=== PATIENT | female | born 1955 | race Caucasian/White ===

== ENCOUNTER 2020-07-31 15:44 | Outpatient (REF) | payer OTHER, SELFPAY | END 2020-07-31 15:45 | disposition home or self-care (01) | LOC: HO.LAB 15:44 | PROVIDERS: PCP Internal Medicine; Visit Provider Internal Medicine | DX: Z20.828 Contact with and (suspected) exposure to other viral communicable diseases (principal) | CPT/HCPCS: C9803; U0003 ==

== ENCOUNTER 2020-08-19 12:54 | Outpatient (REF) | payer OTHER, SELFPAY | END 2020-08-19 12:55 | disposition home or self-care (01) | LOC: HO.LAB 12:54 | PROVIDERS: PCP Internal Medicine; Visit Provider Internal Medicine | DX: Z20.822 Contact with and (suspected) exposure to COVID-19 (principal) | CPT/HCPCS: 36415; C9803; U0003 ==

== ENCOUNTER 2020-09-16 16:02 | Outpatient (REF) | payer OTHER, SELFPAY | END 2020-09-16 16:03 | disposition home or self-care (01) | LOC: HO.LAB 16:02 | PROVIDERS: Visit Provider Internal Medicine | DX: Z20.822 Contact with and (suspected) exposure to COVID-19 (principal) | CPT/HCPCS: 36415; C9803; U0003; U0005 ==

== ENCOUNTER 2022-03-18 06:25 | Emergency (ER) | payer OTHER, SELFPAY ==
--- NOTE | ~2022-03-18 | US_ITS ---
EXAMINATION: LEFT LOWER EXTREMITY DEEP VENOUS ULTRASOUND CLINICAL INFORMATION: Left lower extremity pain and swelling COMPARISON: None. TECHNIQUE: Duplex Doppler imaging with compression maneuvers were performed of the left lower extremity deep venous system. FINDINGS: The visualized common femoral, femoral and popliteal veins demonstrate normal compressibility and color flow without evidence of venous thrombosis. Visualized portions of the calf veins demonstrate normal color fill-in suggesting patency. There is no evidence of a Ramon's cyst. US/US venous duplex LE LT IMPRESSION: No evidence of deep venous thrombosis involving the left lower extremity.
[2022-03-18 07:17] VITALS: BP 150/95; PULSE 89; RESP 18; TEMP 36.7; O2SAT 96; BMI 27.6
--- NOTE | 2022-03-18 09:36 | ED_ITS ---
HPI - Extremity Injury (Lower) General Chief Complaint: Extremity Injury, Lower Stated Complaint: left foot pain Time Seen by Provider: 03/18/22 08:55 Source: patient Mode of arrival: ambulatory History of Present Illness HPI Narrative: 66-year-old female with no significant past medical history presenting to the ED complaining of left calf pain and swelling s/p a lot of walking last week. Denies known injury, trauma or fall. Reports history of varicose veins s/p . Denies fever, chills, SOB, CP, cough, numbness, tingling, weakness complaint: leg injury Onset (ago): day(s) Related Data Allergies Allergy/AdvReac Type Severity Reaction Status Date / Time No Known Allergies Allergy Verified 03/18/22 07:16 [No Known Allergies*] Review of Systems Review of Systems: Constitutional: No Fever, No Chills, No Fatigue, No Malaise ENT/Mouth: No Hearing loss, No Ear Pain, No Nasal Congestion, No Rhinorrhea, No Swallowing Difficulty Eyes: No Eye Pain, No Swelling, No Redness, No Vision Changes Cardiovascular: No Chest Pain, No SOB, No Edema, No Palpitations Respiratory: No Cough, No Sputum, No Dyspnea Gastrointestinal: No Nausea, No Vomiting, No Diarrhea, No Constipation, No Abdominal pain Genitourinary: No irregular bleeding, No Dysuria, No Urinary Frequency, No Hematuria, No Urinary Incontinence/retention, No Flank Pain Musculoskeletal: + joint pain, No Myalgias, + L calf swelling Skin: No Skin Lesions, No rash Neuro: No Weakness, No Numbness, No Paresthesias, No Dizziness, No Headache Yes all other systems are reviewed and are negative Constitutional: Constitutional: Reports as per [facility] Past Medical History Attestation statement: The following information was validated with the patient. Social History Social History Advance Directives: No Advance Directives Information Provided: Yes Physical Exam Vital Signs: Vital Signs: Last Vital Signs Temp 98.1 F 03/18/22 07:17 Pulse 89 03/18/22 07:17 Resp 18 03/18/22 07:17 BP 150/95 H 03/18/22 07:17 Pulse Ox 96 03/18/22 07:17 O2 Del Method 03/18/22 07:17 BMI result Body Mass Index 27.6 Const: General: cooperative, healthy appearing and no acute distress Orientation/consciousness: patient oriented x3 Limitations: no limitations HEENT: Head: Yes normal to inspection and Yes atraumatic Ears: hearing grossly normal bilaterally General nose exam: Normal external nose present Face and sinus: Yes normal facial exam Eyes: General: appearance normal, both eyes and all related structures EOM: EOMs intact bilaterally Neck: Neck: Yes normal visual inspection and Yes no meningeal signs Resp: Effort & Inspection: normal respiratory effort and no respiratory distress Auscultation: clear to auscultation bilaterally Cardio: Rate: regular rate Heart sounds: S1 normal heart sound present and S2 normal heart sound present Peripheral pulses: Peripheral pulses 2+ throughout GI: Inspection: Yes normal to inspection Palpation (GI): Soft to palpation, nontender, no guarding and not rigid : General: Yes no CVA tenderness Back/Spine/Pelvis: Back: no CVA tenderness Skin: Rashes: no rashes Wounds: no wounds Neuro: General: patient oriented x3, tone normal and no meningeal signs Gait exam (Neuro): Normal gait present Extrem: Other: Left calf with mild swelling and noted varicose veins. No erythema/streaking, no crepitus. Mildly tender to palpation. Neurovascular intact distally. Full range of motion intact Course Course Course Narrative: -- 10:40 US venous duplex LE LT IMPRESSION: No evidence of deep venous thrombosis involving the left lower extremity. Results discussed with patient including worrisome signs and symptoms and strict return precautions, and when to return to the emergency department. They verbalized understanding and feel safe for discharge at this time. MDM - Extremity Injury (Lower) MDM Narrative Medical decision making narrative: 66-year-old female with no significant past medical history presenting to the ED complaining of left calf pain and swelling s/p a lot of walking last week. On exam vital signs stable, NAD/nontoxic-appearing, physical exam as above with noted left calf swelling and varicose veins without evidence of cellulitis or infection. Concern for DVT versus varicose veins. Low suspicion for PE/CHF Plan: Venous duplex ultrasound Medical Records Attestation: I reviewed the patient's medical records. Lab Data Attestation: I reviewed the patient's lab results. Discharge Plan Discharge Clinical Impression: Varicose veins of left lower extremity Patient Disposition: Home, Self-Care Instructions: Venous Insufficiency (DC) Additional Instructions: Your ultrasound was negative for a blood clot. Your pain is likely from varicose veins. Wear compression stockings at home. Take Tylenol Motrin as needed. Elevate her legs Follow-up with her doctor. If symptoms persist or worsen return to the emergency department Tu ultrasonido bonilla negativo para un co?gulo de deborah. Es probable que jackson dolor se deba a las venas varicosas. Use medias de compresi?n en casa. [place] Tylenol Motrin seg?n sea necesario. [place] jose m piernas Seguimiento con jackson m?dico. Si los s?ntomas persisten o empeoran, regrese al servicio de urgencias. Referrals: Stone Wiley III, MD [Primary Care Provider] - Interventions: ED Discharge Assessment Last Done: 03/18/22 11:12 Discharge Date/Time: 03/18/22 11:15 Print Language: Martiniquais
== END 2022-03-18 11:15 | disposition home or self-care (01) ==
PROVIDERS: Emergency Provider Internal Medicine; PCP Internal Medicine
DX: I83.812 Varicose veins of left lower extremity with pain (principal); M79.662 Pain in left lower leg
CPT/HCPCS: 93971; 99282; 99284

== ENCOUNTER 2024-12-28 05:30 | Emergency (ER) | payer OTHER, SELFPAY ==
--- NOTE | ~2024-12-28 | XR_ITS ---
CLINICAL HISTORY: fever, cough 1 view chest x-ray Comparison: None Findings: Minor elevation of the right hemidiaphragm. Lungs are well inflated. Cardiac silhouette is within normal limits. Mild bilateral perihilar bronchial wall thickening. No focal areas of consolidation. No pleural effusion. Curvilinear calcification adjacent to the left greater tuberosity. IMPRESSION: 1. Perihilar bronchitis. 2. Calcific tendinitis of the distal left rotator cuff. This document has been electronically signed by: Clemetne Valdes MD on 12/28/2024 07:46:58
[2024-12-28 05:34] VITALS: BP 114/80; PULSE 121; RESP 18; TEMP 36.7; O2SAT 98; BMI 21.6
--- NOTE | 2024-12-28 06:16 | ED_ITS ---
HPI - URI/Sore Throat General Chief Complaint: Upper Respiratory Symptoms Stated Complaint: Fever, Ear Pain Time Seen by Provider: 12/28/24 06:08 Source: patient and family Mode of arrival: ambulatory Limitations: no limitations History of Present Illness ED Provider: Dr. Nury Casey HPI Narrative: Patient comes to the emergency room complaining of fever, cough, left ear pain. Patient states that she was exposed to influenza positive people. According to the patient's family, a proximally 4 hours ago she took a some Tylenol. According to the patient's daughter, the patient was crying earlier tonight due to left ear pain. Patient denies any chest pain or shortness of breath. Yesterday, patient had 2 episodes of vomiting, today none. Related Data Previous Rx's ?Medication ?Instructions ?Recorded amoxicillin 500 mg-potassium 1 tab PO TID 10 days #29 tabs 12/28/24 clavulanate 125 mg tablet (Augmentin) ketorolac 10 mg tablet 10 mg PO Q8H PRN pain #6 tabs 12/28/24 Allergies Allergy/AdvReac Type Severity Reaction Status Date / Time No Known Allergies Allergy Verified 12/28/24 05:37 [No Known Allergies*] Review of Systems Review of Systems: Constitutional : No Weight loss, No Fever, No Chills, No Night Sweats, No Fatigue, No Malaise ENT/Mouth : No Hearing loss, complaining of left-sided Ear Pain, complaining of Nasal Congestion, No Sinus Pain, No Hoarseness, No sore throat, No Rhinorrhea, No Swallowing Difficulty Eyes: No Eye Pain, No Swelling, No Redness, No Foreign Body, No Discharge, No Vision Changes Cardiovascular : No Chest Pain, No SOB, No Dyspnea on Exertion, No Orthopnea, No Edema, No Palpitations Respiratory : Complaining of productive cough No Wheezing, No Smoke Exposure, No Dyspnea Gastrointestinal : Complaining of nausea and vomiting for couple of days ago No Diarrhea, No Constipation, No abdominal Pain, No Hematochezia, No Melena Genitourinary : no irregular bleeding, No Dysuria, No Urinary Frequency, No Hematuria, No Urinary Incontinence, No Urgency, No Flank Pain, No Urinary Flow Changes, No Hesitancy Musculoskeletal : No joint pain, No Myalgias, No Joint Swelling Skin : No Skin Lesions, No rash Neuro : No Weakness, No Numbness, No Paresthesias, No Loss of Consciousness, No Dizziness, No Headache Psych : No Anxiety/Panic, No Depression, No SI/HI/AH/VH, No Social Issues, Heme/Lymph: No Bruising, No Bleeding,No Lymphadenopathy Endocrine : No Polyuria, No Polydipsia, No Temperature Intolerance [facility] Social History Social History Smoked in Last 30 Days: No Use of substances other than those prescribed or required for medical reasons: No Advance Directives: No Advance Directives Information Provided: Yes Do you have a plan to hurt others: No Plan Physical Exam Vital Signs: Vital Signs: Last Vital Signs Temp 98.1 F 12/28/24 05:34 Pulse 121 H 12/28/24 05:34 Resp 18 12/28/24 05:34 BP 114/80 12/28/24 05:34 Pulse Ox 98 12/28/24 05:34 O2 Del Method Room Air 12/28/24 05:34 BMI result Body Mass Index 21.6 Const: Other: Appearance: Alert. Oriented X3. No acute distress. Eyes: Pupils equal, round and reactive to light. ENT: Pharynx normal. Patient's right tympanic membrane and ear canal within normal limits, left ear ear canal and tympanic membrane both erythematous, tympanic membrane is not ruptured. There is no mastoid bone tenderness to palpation in either side. Neck: Normal inspection. Neck supple. No lymph nodes noted. No crepitus CVS: Normal heart rate and rhythm. Pulses normal. Normal S1 and S2 Respiratory: No respiratory distress. Breath sounds normal. No Wheezing. No rales Abdomen: Soft and nontender. No rigidity. No distention. Skin: Skin warm and dry. Normal skin color. Normal skin turgor. Extremities: No lower extremity edema. No Lacerations. No Rash Neuro: Oriented X 3. No motor deficit. No sensory deficit. Moving all extremities. No slurred speech. CN 2 through 12 grossly intact Psych: calm, cooperative, normal affect Course Course Course Narrative: Patient's chest x-ray and serology reports pending. Patient is being given a dose of ketorolac IM and 1st dose of antibiotic Medications Administered Discontinued Medications Generic Name Dose Route Start Last Admin Trade Name Freq PRN Reason Stop Dose Admin Amoxicillin/Clavulanate Potassium 500 mg 12/28/24 06:16 12/28/24 06:28 Amoxicillin/Potassium Clav 500 Mg Tablet PO 12/28/24 06:17 500 mg ONCE ONE Administration Ketorolac Tromethamine 60 mg 12/28/24 06:16 12/28/24 06:28 Ketorolac Tromethamine 60 Mg/2 Ml Vial IM 12/28/24 06:17 60 mg ONCE ONE Administration Medical Decision Making Medical Decision Making [facility] Narrative: I discussed the physical exam with the patient and her family. Patient states that the ear pain is really bothering her. No mastoid bone tenderness. Mastoiditis is not suspected. Patient was given the 1st dose of IM ketorolac and Augmentin in the emergency room. Serology is negative for influenza COVID and RSV My interpretation of x-ray, negative pneumonia. Radiology report pending. Patient is receiving treatment for otitis media which will also cover for pn eumonia. Differential Diagnosis Differential Diagnoses: The differential diagnosis associated with the presentation includes (Otitis media, mastoiditis, URI, pneumonia) Lab Data [facility] Lab Attestation statement: I reviewed the patient's lab results. Labs: Lab Results 12/28/24 Range/Units 05:46 Influenza Type A (PCR) NEGATIVE (Negative) Influenza Type B (PCR) NEGATIVE (Negative) RSV RNA Qual (PCR) NEGATIVE (Negative) SARS-CoV-2 RNA (RT-PCR) NEGATIVE (Negative) Independent Interpretation I performed an independent interpretation of an: Plain X-Ray Discharge Plan Discharge Clinical Impression: Otitis media Patient Disposition: Home, Self-Care Instructions: Ear Infection (ED) Additional Instructions: Please follow-up with your primary care physician tomorrow. If you have any worsening or new symptoms, please return to the emergency room or call 911 Prescriptions: New amoxicillin-pot clavulanate [Augmentin] 500-125 mg tablet 1 tab PO TID 10 Days Qty: 29 0RF ketorolac 10 mg tablet 10 mg PO Q8H PRN (Reason: pain) Qty: 6 0RF Rx Instructions: Do not mix with ibuprofen or any other NSAIDs Print Language: Indian
[2024-12-28 06:27] LABS: Influenza A PCR NEGATIVE (Negative); Influenza B PCR NEGATIVE (Negative); Resp Syncy Virus RNA Qual PCR NEGATIVE (Negative); SARS COV2 PCR INHOUSE NEGATIVE (Negative)
[2024-12-28] MEDS: Amoxicillin/Potassium Clav 500 MG TABLET PO (06:28)
[2024-12-28] MEDS: Ketorolac Tromethamine 60 MG/2 ML VIAL IM (06:28)
[2024-12-28 07:00] VITALS: BP 141/81; PULSE 89; RESP 18; TEMP 36.9; O2SAT 97
[2024-12-28 07:11] VITALS: BP 141/81; PULSE 89; RESP 18; TEMP 36.9; O2SAT 97
== END 2024-12-28 07:12 | disposition home or self-care (01) ==
PROVIDERS: Emergency Provider Emergency Medicine
DX: H66.92 Otitis media, unspecified, left ear (principal); R05.9 Cough, unspecified; Z03.818 Encounter for observation for suspected exposure to other biological agents ruled out; E11.9 Type 2 diabetes mellitus without complications
CPT/HCPCS: 0241U; 71045; 96372; 99284; J1885

== ENCOUNTER → 2024-12-28 06:08 | Outpatient (BNV) | payer OTHER, SELFPAY | PROVIDERS: Emergency Provider Emergency Medicine; Visit Provider Radiology Diagnostic Radiology | DX: J20.9 Acute bronchitis, unspecified (principal); M75.32 Calcific tendinitis of left shoulder | CPT/HCPCS: 71045 ==

== ENCOUNTER → 2025-01-02 14:09 | Outpatient (BNV) | payer OTHER, SELFPAY | PROVIDERS: Emergency Provider Emergency Medicine; Visit Provider Student in an Organized Health Care Education/Training Program | DX: R47.81 Slurred speech (principal); R53.1 Weakness; R73.9 Hyperglycemia, unspecified | CPT/HCPCS: 99223; 99233 ==

== ENCOUNTER 2025-01-02 14:14 | Inpatient (IN) | payer OTHER, SELFPAY ==
--- NOTE | ~2025-01-02 | CT_ITS ---
EXAMINATION: CTA NECK WITH CONTRAST (STROKE) CTA BRAIN WITH CONTRAST (STROKE) CLINICAL INFORMATION: Slurred speech. Concerning acute stroke COMPARISON: Correlated to noncontrast CT brain same day. TECHNIQUE: CTA of the head and neck was performed in the axial plane from the mediastinum to the skull vertex using 70 mL Omnipaque 350 intravenous contrast. Additional reformatted multiplanar images including maximum intensity projection MIP images are generated on the CT workstation. No reported immediate complications This CT examination was performed using dose optimization techniques as appropriate, variously including the following: *Automated exposure control *Adjustment of mA and/or kV according to patient size (this includes techniques or standardized protocols for targeted exams where dose is matched to indication/reason for exam; i.e. extremities or head) *Use of iterative reconstruction technique DLP: 704 mGy centimeter. FINDINGS: The degree of stenosis determined by criteria similar to NASCET. Brain: Please refer to recent CT brain. Chest CTA: Calcified plaques in the aortic arch and descending thoracic aorta. Normal caliber and enhancement pattern without intimal flap. No IV contrast extravasation. Calcified plaque in the origin of the left subclavian artery and the right vertebral artery. Neck CTA: Right CCA: Normal patency. No focal stenosis. No intimal flap. Right ICA: Focal calcified plaque in the carotid bulbs and proximal ICA. Less than 70% stenosis. Tortuosity. Retropharyngeal trajectory. Left CCA: Normal patency. Tortuosity. No focal stenosis. No intimal flap. Left ICA: Calcified plaques representing less than 60% stenosis. No intimal flap. Tortuosity. V1/V2 segments: Normal patency. No intimal flap. No focal stenosis. Calcified plaques in the origin of the vertebral arteries and the subclavian arteries. Brain CTA: Anterior cerebral circulation: ICAs: Calcified plaques in the cavernous supraclinoid segments. No focal stenosis. No abrupt cut off. MCA's: Normal patency. No focal stenosis. No abrupt cut off. Bifurcation/trifurcation demonstrated no vascular irregularity. ACAs: Normal patency. Hypoplastic right A1 segment. No focal stenosis. No abrupt cut off. Ophthalmic arteries are patent. Anterior communicating artery is patent. Posterior communicating arteries are patent with small caliber. Posterior cerebral circulation: V3/V4 segments: Calcified plaques in the right vertebral artery. No focal stenosis. No intimal flap. Right vertebral artery slightly dominant. Posterior inferior cerebellar arteries are patent. Anterior inferior cerebral arteries are patent. Basilar artery is patent without focal stenosis or intimal flap. Superior cerebellar arteries are patent. quartz mounter: Normal patency. No focal stenosis or abrupt cut off. Ancillary findings: Fluid attenuation in the left mastoid cells and the left hypotympanum. Polypoid mucosal thickening, right maxillary sinus. Nonspecific prominent cervical lymph nodes. The thyroid gland demonstrates no dominant nodules. Calcified plaques in the coronary arteries. Extensive White matter disease with the multifocal old lacunar infarcts. No intraluminal filling defects within the main cerebral venous sinuses. CT/CT angio head neck STROKE IMPRESSION: No main cerebral artery occlusion or embolus. No gross renal arteries Calcified plaque right ICA at representing 70% stenosis. Calcified plaque left ICA at representing less than 70% stenosis. Atherosclerosis disease, proximal vertebral arteries/V1 segments.. No dissection. Probable effusion, left mastoid air cells and left hypotympanum. White matter disease likely related to small vessel occlusive disease. This critical test result is communicated to: Emergency physician Dr. Nico Santiago via [employer] connect on January 02, 2025 at 2:50 PM Electronically signed by: Hernandez Bernardo MD 01/02/2025 02:53 PM EDT
--- NOTE | ~2025-01-02 | MR_ITS ---
CLINICAL HISTORY: Slurred speech, Right sided weakness MR Brain without gadolinium Comparison: CT/SD/SR - CT ANGIO HEAD NECK STROKE - 01/02/25 14:[address]/SD - CT ANGIO HEAD NECK STROKE - 01/02/25 14:[address]/SD/SR - CT HEAD FOR STROKE - 01/02/25 14:19 EDT Findings: There is a focal ovoid area of diffusion restriction measuring 6 x 3 mm in the superior portion of the left basal ganglia, series 6, image 15. There is an ovoid T2 hyperintensity in the left basal ganglia, And a smaller lesion in the right thalamus consistent with old lacunar infarcts. No intra-axial mass or hemorrhage. Extensive T2 and FLAIR hyperintensity in the subcortical and periventricular white matter. No midline shift. No hydrocephalus. Vascular flow voids are intact. Orbital contents are unremarkable. Mucosal thickening of the right maxillary sinus. There is a large left mastoid effusion There are multifocal areas of fatty marrow replacement in the calvarium. IMPRESSION: 1. Acute nonhemorrhagic lacunar infarct in the left basal ganglia. 2. Extensive white matter disease in the subcortical and periventricular regions which could be compatible with chronic small-vessel ischemic gliosis. 3. Old lacunar infarcts in the right thalamus and left basal ganglia. This document has been electronically signed by: Raheem Ferrer MD on 01/02/2025 20:07:33
--- NOTE | ~2025-01-02 | XR_ITS ---
EXAMINATION: XR CHEST CLINICAL INFORMATION: stroke COMPARISON: December 28, 2024. TECHNIQUE: Frontal view of the chest was obtained. FINDINGS: Pulmonary reticular pattern. No consolidation, pleural effusion or pneumothorax. Cardiomediastinal silhouette size demonstrated mildly prominent ascending aorta. Multilevel thoracic spondylosis. Degenerative changes in the acromioclavicular joints. XR/XR chest 1V IMPRESSION: Mild prominent ascending thoracic aorta, more conspicuous since prior exam. Electronically signed by: Hernandez Bernardo MD 01/02/2025 03:39 PM EDT
--- NOTE | ~2025-01-02 | CT_ITS ---
EXAMINATION: CT HEAD WITHOUT CONTRAST (STROKE PROTOCOL) CLINICAL INFORMATION: Stroke protocol. Slurred speech. COMPARISON: January 04, 2019. TECHNIQUE: Contiguous axial imaging was performed from the skull base to vertex without intravenous administration of contrast. This CT examination was performed using dose optimization techniques as appropriate, variously including the following: *Automated exposure control *Adjustment of mA and/or kV according to patient size (this includes techniques or standardized protocols for targeted exams where dose is matched to indication/reason for exam; i.e. extremities or head) *Use of iterative reconstruction technique DLP: 565 mGy centimeter. FINDINGS: No acute intracranial hemorrhage, mass effect, midline shift, hydrocephalus or herniation. Stein-white matter differentiation is normal. Bilateral multifocal patchy and confluent deep periventricular white matter hypodensities involving centrum semiovale and mata radiata both hemispheres. Multifocal old lacunar infarcts, basal ganglia, extracapsular and mata radiata white matter. Probable wallerian degeneration from the right thalamus to the right cerebral peduncle. Calcified plaques in the right V4 segment and the cavernous supracavernous segments both ICAs. Sellar/suprasellar region demonstrated no gross masses. Craniocervical junction demonstrates normal position of the cerebellar tonsils. The bony calvarium is intact. There is a polypoid mucosal thickening, right maxillary sinus. There is increased density probably fluid density in the left mastoid air cells and the left hypotympanum . The right tympanic cavity and right mastoid cells are aerated. Pneumatized right petrous apex, congenital. CT/CT head for STROKE IMPRESSION: No acute intracranial hemorrhage. Extensive White matter disease with multifocal old lacunar infarcts likely related to small vessel occlusive disease. Atherosclerosis disease, intracranial. Probable effusion, left mastoid air cells and left hypotympanum.. This critical result was discussed with emergency physician Dr. Nico Santiago at 2:33 PM hours on January 02, 2025.. It was ascertained that the content and urgency of the report was understood at the time of direct communication. Electronically signed by: Hernandez Bernardo MD 01/02/2025 02:38 PM EDT
--- NOTE | 2025-01-02 14:20 | ECG_ITS ---
Test Reason : STROKE PROTOCOL Blood Pressure : */* mmHG Vent. Rate : 96 BPM Atrial Rate : 96 BPM P-R Int : 126 ms QRS Dur : 74 ms QT Int : 324 ms P-R-T Axes : -8 -14 -32 degrees QTcB Int : 409 ms Normal sinus rhythm Minimal voltage criteria for LVH, may be normal variant ( R in aVL ) Nonspecific ST and T wave abnormality Abnormal ECG When compared with ECG of 04-Jan-2019 07:23, Nonspecific T wave abnormality now evident in Anterolateral leads Referred By: Nico Santiago Electronically Signed By: AZAM ASENCIO MD
[2025-01-02] MEDS: iohexoL 350 MG/ML 100 ML INFUS..BTL IV (14:35)
[2025-01-02 14:41] VITALS: BP 147/81; PULSE 92; RESP 18; TEMP 36.8; O2SAT 94; BMI 18.8
--- NOTE | 2025-01-02 14:51 | ED_ITS ---
HPI - Neuro Symptoms/Deficit General Chief Complaint: Stroke Stated Complaint: ?STROKE,LKWT 1300,-THINNER,SLURR,R WEAK Time Seen by Provider: 01/02/25 14:19 Source: patient, family (Daughter), EMS and on air host Mode of arrival: EMS Limitations: no limitations History of Present Illness ED Provider: DR. Santiago HPI Narrative: A 69-year-old female brought in by ambulance as a stroke protocol, patient was walking with her daughter at the park when start notice at 13:00 that patient is dragging her right foot and also noticed a mild right upper extremity weakness, daughter also noticed some slurred speech and different pattern of speech. Patient is missing teeth making it hard for me to determine this is an acute slurred speech or words articulation problem due to missing teeth. Related Data Previous Rx's ?Medication ?Instructions ?Recorded amoxicillin 500 mg-potassium 1 tab PO TID 10 days #29 tabs 12/28/24 clavulanate 125 mg tablet (Augmentin) ketorolac 10 mg tablet 10 mg PO Q8H PRN pain #6 tabs 12/28/24 Allergies Allergy/AdvReac Type Severity Reaction Status Date / Time No Known Allergies Allergy Verified 01/02/25 14:42 [No Known Allergies*] Review of Systems 2 Review of Systems: All other systems are reviewed and are negative Constitutional: Reports as per HPI and Reports no additional constitutional complaints Eyes: Reports as per HPI and Reports no additional eye complaints Reports system reviewed and no additional complaints, except as documented Cardiovascular: Reports as per HPI and Reports no additional cardiovascular complaints Respiratory: Reports as per HPI and Reports no additional respiratory complaints Gastrointestinal: Reports as per HPI and Reports no additional gastrointestinal complaints Genitourinary: Reports no additional female genitourinary complaints Musculoskeletal: Reports no additional musculoskeletal complaints Skin/Breast: Reports system reviewed and no additional complaints, except as docu Psychiatric: Reports no additional psychiatric complaints Endocrine: Reports no additional endocrine complaints Hematologic/Lymphatic: Reports no additional hematologic/lymphatic complaints Allergic/Immunologic: Reports no additional allergic/immunologic complaints Reports system reviewed and no additional complaints, except as documented and Reports Abnormal speech present [facility] Social History Social History Alcohol intake: former Smoked in Last 30 Days: No Use of substances other than those prescribed or required for medical reasons: No Physical Exam 2 Vital Signs: Vital Signs: Last Vital Signs Temp 98.3 F 01/02/25 14:41 Pulse 92 01/02/25 14:41 Resp 18 01/02/25 14:41 BP 147/81 H 01/02/25 14:41 Pulse Ox 94 01/02/25 14:41 O2 Del Method Room Air 01/02/25 14:41 BMI result Body Mass Index 18.8 Vital signs have been reviewed and appear to be correct. Blood pressure elevated. Heart rate normal. Respiratory rate normal. Temperature normal. Oxygen saturation normal. Appearance: Alert. Oriented X3. No acute distress. Head: Normal external exam. Normocephalic. Atraumatic. No Bain signs noted. No raccoon eyes noted Eyes: PERRLA. EOMI. Conjunctiva and sclera normal. Eyelids normal. ENT: TM's Normal. Pharynx normal. Uvula midline. Moist mucous membranes. No trismus noted. No drooling noted. No muffled voice noted. Neck: Normal inspection. Neck supple. FROM. No adenopathy. Thyroid Normal. No meningeal signs. No neck mass noted. CVS: Normal heart rate and rhythm. Heart sound normal. No murmurs noted. Pulses normal throughout. Respiratory: No respiratory distress. Painless inspiration. Breath sounds normal. No wheezes/rales/rhonchi noted. Chest nontender. No accessory muscle usage noted or decreased air movement noted. Abdomen: Soft and nontender. Bowel sounds normal in all 4 quadrants. No distention noted. No organomegaly noted. No visible injury noted. Back: No CVA tenderness. Full range of motion noted. Skin: Skin warm and dry. Normal skin color. Normal skin turgor. No rashes/lesions/lacerations noted. Extremities: No lower extremity edema. Extremities exhibit normal range of motion. Extremities nontender. Neuro: Oriented X 3. Cranial nerve exam: II-XII are grossly intact No motor deficit. No sensory deficit. Reflexes normal. Course Reevaluation(s) Reevaluation #1: CVA with minor symptoms, improvement of NIH score from 3to 2, patient is able to ambulate with a walker in the ED, as per daughter patient is at her baseline, daughter still thinks that the patient is speaking in a different speech pattern. Case discussed with Dr. Sebastian, patient is not a candidate for TNK because improvement and minority of symptoms. Administer aspirin in the ED. Medical admission to consider inpatient further neurological workup. Time: 15:44 Medications Administered Discontinued Medications Generic Name Dose Route Start Last Admin Trade Name [place] PRN Reason Stop Dose Admin Aspirin 325 mg 01/02/25 15:01 01/02/25 15:18 Aspirin 325 Mg Tablet PO 01/02/25 15:02 325 mg ONCE ONE Administration Iohexol 100 ml 01/02/25 14:34 01/02/25 14:35 Iohexol 350 Mg/Ml 100 Ml Infus..Btl IV 01/02/25 14:35 70 ml ONCE ONE Administration Medical Decision Making Differential Diagnosis Differential Diagnoses: The differential diagnosis associated with the presentation includes (Hemorrhagic stroke, ischemic stroke, right lower extremity pain (chronic), electrolyte derangement, severe anemia.) Admission/Observation Consideration of admission/observation: Escalation of care including admission/observation considered Consult Healthcare Provider Management of the patient was discussed with: Hospitalist (Dr. Lockhart) and Clinical Assessment Manager (Dr. Sebastian) Lab Data MDM Lab Attestation statement: I reviewed the patient's lab results. 01/02/25 15:03 01/02/25 15:03 Labs: Lab Results 01/02/25 01/02/25 01/02/25 Range/Units 14:53 14:54 15:03 WBC 12.5 H (4.8-10.8) X10*3/uL RBC 4.22 (4.20-5.50) X10*6/uL Hgb 12.2 (12.0-16.0) g/dl Hct 36.4 L (37.0-47.0) % MCV 86.3 (80.0-98.0) fL MCH 28.9 (27.0-33.0) pg MCHC 33.5 (31.0-35.0) g/dl RDW 11.9 (11.0-16.0) % Plt Count 391 (160-400) X10*3/uL MPV 9.6 (9.4-12.3) fL Immature Gran % (Auto) 1.0 H (0.0-0.4) % Neut % (Auto) 70.5 (45-73) % Lymph % (Auto) 20.2 (20-40) % [place] % (Auto) 7.2 (2-11) % Eos % (Auto) 0.6 (0-4) % Baso % (Auto) 0.5 (0-2) % Lymph # (Auto) 2.5 (1.2-4.9) X10*3/uL [place] # (Auto) 0.9 (0.1-1.2) X10*3/uL Eos # (Auto) 0.1 (0.0-0.4) X10*3/uL Baso # (Auto) 0.1 (0.0-0.2) X10*3/uL Abs Immat Gran (auto) 0.13 H (0.00-0.03) X10*3/uL Absolute Neuts (auto) 8.8 H (2.0-8.3) x10*3/uL Absolute Nucleated RBC 0.000 (0.0-0.012) X10*3/uL Nucleated RBC % (auto) 0.0 (0.0-0.2) /100WBC PT 12.2 (10.9-12.4) SEC Whole Blood PT 12.6 (11.1-13.5) sec INR 1.1 (0.9-1.1) Whole Blood INR 1.0 (0.9-1.1) APTT 25.2 L (26.0-36.8) SEC Sodium 133 L (135-145) mmol/L Potassium 4.0 (3.3-5.1) mmol/L Chloride 98 (96-108) mmol/L Carbon Dioxide 24 (22-29) mmol/L Anion Gap 15 (12-20) BUN 9 (9-16) mg/dL Creatinine 0.72 (0.5-1.4) mg/dL Estim Creat Clear Calc 58.0 Estimated GFR > 60 POC Glucose 350 H* (60-115) mg/dL Random Glucose 365 H* (60-115) mg/dL Calcium 10.0 (8.4-10.2) mg/dL Troponin I High Sens 5.0 (<3.5-17.0) ng/L Triglycerides 139 (<150) mg/dL Cholesterol 133 (<200) mg/dL LDL Cholesterol, Calc 71 (<100) mg/dL HDL Cholesterol 35 L (>40) mg/dL Independent Interpretation I performed an independent interpretation of an: Plain X-Ray (Chest:Mild prominent ascending thoracic aorta, more conspicuous since prior exam. ) and CT Scan (CTA head and neck/CT head:No main cerebral artery occlusion or embolus. No gross renal arteries Calcified plaque right ICA at representing 70% stenosis. Calcified plaque left ICA at representing less than 70% stenosis. Atherosclerosis disease, proximal vertebral arteries/V1 segments.. No dissection.) Radiology Impression Discussion of test interpretation with radiology: I have reviewed the radiologist's reading. NIH Stroke Scale Time: 14:51 Level of Consciousness: Alert Level of Consciousness Questions: Answers both questions correctly Level of Consciousness Commands: Performs both tasks correctly Best Gaze: Normal Visual: No visual loss Facial Palsy: Normal Motor Arm (Right): Drift Motor Arm (Left): No drift Motor Leg (Right): No drift Motor Leg (Left): No drift Limb Ataxia: Absent Sensory: Normal Best Language: Mild to moderate aphasia Dysarthia: Normal Extinction and Inattention: No abnormality Score: 2 Critical Care Time Critical Care Time Critical Care Time: Yes Total Critical Care Time: 60 Attestation: The patient was critically ill with a high probability of imminent or life- threatening deterioration. I spent greater than 30 minutes of discontinuous time evaluating the patient, delivering critical care at the bedside, discussing evaluating data with consultants. Critical care time does not include time spent performing separately billable procedures or teaching. Time spent performing critical care was 60 minutes. Discharge Plan Discharge Clinical Impression: Cerebrovascular accident, Hyperglycemia Patient Disposition: Admitted As Inpatient Print Language: Tunisian
[2025-01-02 14:59] LABS: Prothrombin Time Whole Bld POC 12.6 sec (11.1-13.5)
[2025-01-02 15:00] LABS: Glucose, Whole Blood 350 mg/dL (60-115)
[2025-01-02 15:08] LABS: MANUAL DIFF FLAG NO
[2025-01-02 15:12] LABS: Basophils Absolute Auto 0.1 X10*3/uL (0.0-0.2); Basophils Percent Auto 0.5 % (0-2); Eosinophils Absolute Auto 0.1 X10*3/uL (0.0-0.4); Eosinophils Percent Auto 0.6 % (0-4); Hematocrit 36.4 % (37.0-47.0); Hemoglobin 12.2 g/dl (12.0-16.0); Imm Gran Abs Auto 0.13 X10*3/uL (0.00-0.03); Lymphocytes Absolute Auto 2.5 X10*3/uL (1.2-4.9); Lymphocytes Percent Auto 20.2 % (20-40); Mean Corpuscular HGB Conc 33.5 g/dl (31.0-35.0); Mean Corpuscular Hemoglobin 28.9 pg (27.0-33.0); Mean Corpuscular Volume 86.3 fL (80.0-98.0); Mean Platelet Volume 9.6 fL (9.4-12.3); Monocytes Absolute Auto 0.9 X10*3/uL (0.1-1.2); Monocytes Percent Auto 7.2 % (2-11); Neutrophils Absolute Auto 8.8 x10*3/uL (2.0-8.3); Neutrophils Percent Auto 70.5 % (45-73); Platelet Count 391 X10*3/uL (160-400); Red Blood Count 4.22 X10*6/uL (4.20-5.50); Red Cell Distribution Width 11.9 % (11.0-16.0); White Blood Count 12.5 X10*3/uL (4.8-10.8)
--- NOTE | 2025-01-02 15:17 | MHC.STROKE ---
Met with patient and daughter in room [address] Santiago Daughter declined hospital admitting clerk. Stroke Education provided. Pamphlet given Risk factors discussed including Medical history, activity, diet, and social hx. Daughter feels that her speech seems funny . Patient has no complaints other than her legs hurt all the time Will continue to assist as needed.
[2025-01-02] MEDS: Aspirin 325 MG TABLET PO (15:18)
[2025-01-02 15:30] LABS: INTERNATIONAL NORM RATIO 1.1 (0.9-1.1); Prothrombin Time 12.2 SEC (10.9-12.4)
[2025-01-02 15:32] LABS: Partial Thromboplastin Time 25.2 SEC (26.0-36.8)
[2025-01-02 15:34] LABS: Anion Gap 15 (12-20); Blood Urea Nitrogen 9 mg/dL (9-16); Carbon Dioxide 24 mmol/L (22-29); Chloride 98 mmol/L (96-108); Cholesterol 133 mg/dL (<200); Estimated Glomerular Filt Rate > 60; Glucose Random 365 mg/dL (60-115); HDL Cholesterol 35 mg/dL (>40); LDL Cholesterol Calculated 71 mg/dL (<100); Sodium 133 mmol/L (135-145); Triglycerides 139 mg/dL (<150)
--- NOTE | 2025-01-02 15:46 | MHC.EDTECH ---
pt ambulated with walker and a steady gait. changes to gait was observed with right foot dragging briefly and walker pushed slightly to left side while ambulating. pt able to make corrections to gait, however foot would begin to drag again. and GINGER aware
[2025-01-02 16:01] VITALS: BP 157/87; PULSE 93; RESP 20; TEMP 36.8; O2SAT 94
[2025-01-02] MEDS: Insulin Regular, Human 100 UNIT/ML 10 ML VIAL IVPUSH (16:09)
[2025-01-02] MEDS: 0.9 % Sodium Chloride 1,000 ML 999 ML IV (16:12)
--- NOTE | 2025-01-02 16:16 | P.HPHOSP_ITS ---
History of Present Illness Date of Service: 01/02/25 Chief Complaint: slurred speech, right sided weakness A 69 years old lady with PMH of alcohol abuse in remission, elevated blood sugar who moved recently from [facility] and has no daily medicaitons presenting with sudden onset right sided weakness and slurred speech. The patient was resting comfortable in her bed. No chest pain, palpitations, SOB, nausea, vomiting, diarrhea or urinary symptoms. this morning she was noted by her daughter to have troubles walking in the house with reported slurred speech. presented to ED and continues to show facial droop and slurred speech which improved since coming to ED. noted to have elevated WBCs and Glucose. In ED a CT \ CTA were done showing significant narrowing of bilateral carotids of >70%. Also has Probable effusion, left mastoid air cells and left hypotympanum as she was on antibiotics for left ear infection. Admtted for further work up and management. Review of Systems 2 Review of Systems: No fever, chills but has right sided weakness No chest pain, palpitation No shortness of breath or coughing No abdominal pain, nausea or vomiting No urinary symptoms No any rash or wounds PMFSH Social History Alcohol intake: former Smoked in Last 30 Days: No Use of substances other than those prescribed or required for medical reasons: No Meds Allergies Allergy/AdvReac Type Severity Reaction Status Date / Time No Known Allergies Allergy Verified 01/02/25 14:42 [No Known Allergies*] Active Medications: Current Medications Sodium Chloride (Ns) 1,000 mls @ 999 mls/hr IV .Q1H1M ONE Stop: 01/02/25 16:40 Last Admin: 01/02/25 16:12 Dose: 999 mls/hr Physical Exam 2 Vital Signs and Narrative: Vital Signs: Last Vital Signs Temp 98.3 F 01/02/25 16:01 Pulse 93 01/02/25 16:01 Resp 20 01/02/25 16:01 BP 157/87 H 01/02/25 16:01 Pulse Ox 94 01/02/25 16:01 O2 Del Method Room Air 01/02/25 16:01 BMI result Body Mass Index 18.8 Const: Other: Constitutional : Awake, interactive, not in distress Neck : Normal inspection, Supple Cardiovascular : RRR, no JVP, no lower extremity edema Respiratory : good bilateral air entry, no crackles, wheezes or rhonchi Gastrointestinal: soft, lax, Normal bowel sounds, Non tender Skin : Warm, Dry Neurological : Alert & oriented x3, mild right sided weakness on RUE, slurred speech and droop on right side of face Results Labs 01/02/25 15:03 01/02/25 15:03 Labs: Laboratory Results - last 24 hr 01/02/25 01/02/25 01/02/25 14:53 14:54 15:03 MCV 86.3 MCH 28.9 MCHC 33.5 RDW 11.9 Plt Count 391 MPV 9.6 Immature Gran % (Auto) 1.0 H Neut % (Auto) 70.5 Lymph % (Auto) 20.2 [place] % (Auto) 7.2 Eos % (Auto) 0.6 Baso % (Auto) 0.5 Lymph # (Auto) 2.5 [place] # (Auto) 0.9 Eos # (Auto) 0.1 Baso # (Auto) 0.1 Abs Immat Gran (auto) 0.13 H Absolute Neuts (auto) 8.8 H Absolute Nucleated RBC 0.000 Nucleated RBC % (auto) 0.0 PT 12.2 Whole Blood PT 12.6 INR 1.1 Whole Blood INR 1.0 APTT 25.2 L Anion Gap 15 Estim Creat Clear Calc 58.0 Estimated GFR > 60 POC Glucose 350 H* Random Glucose 365 H* Calcium 10.0 Triglycerides 139 Cholesterol 133 LDL Cholesterol, Calc 71 HDL Cholesterol 35 L Imaging Radiologist's Impressions: Impressions Head CT 01/02/25 14:19 IMPRESSION: No acute intracranial hemorrhage. Extensive White matter disease with multifocal old lacunar infarcts likely related to small vessel occlusive disease. Atherosclerosis disease, intracranial. Probable effusion, left mastoid air cells and left hypotympanum.. This critical result was discussed with emergency physician Dr. Nico Santiago at 2:33 PM hours on January 02, 2025.. It was ascertained that the content and urgency of the report was understood at the time of direct communication. Electronically signed by: Hernandez Bernardo MD 01/02/2025 02:38 PM EDT Head/Neck CTA 01/02/25 14:20 IMPRESSION: No main cerebral artery occlusion or embolus. No gross renal arteries Calcified plaque right ICA at representing 70% stenosis. Calcified plaque left ICA at representing less than 70% stenosis. Atherosclerosis disease, proximal vertebral arteries/V1 segments.. No dissection. Probable effusion, left mastoid air cells and left hypotympanum. White matter disease likely related to small vessel occlusive disease. This critical test result is communicated to: Emergency physician Dr. Nico Santiago via tiger connect on January 02, 2025 at 2:50 PM Electronically signed by: Hernandez Bernardo MD 01/02/2025 02:53 PM EDT RP Chest X-Ray 01/02/25 14:24 IMPRESSION: Mild prominent ascending thoracic aorta, more conspicuous since prior exam. Electronically signed by: Hernandez Bernardo MD 01/02/2025 03:39 PM EDT RP Assessment and Plan (1) Slurred speech: Status: Acute (2) Right sided weakness: Status: Acute (3) Hyperglycemia: Status: Acute Plan A 69 years old lady with PMH of alcohol abuse in remission, elevated blood sugar who moved recently from [facility] and has no daily medicaitons presenting with sudden onset right sided weakness and slurred speech. 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
[2025-01-02 16:53] LABS: Estimated Average Glucose 252 mg/dL; Hemoglobin A1C 289.2191 umol/L; Hemoglobin A1c % 10.4 % (<6.0); Total Hemoglobin (HGBA1C) 3202.4064 umol/L
[2025-01-02 17:05] LABS: Glucose, Whole Blood 135 mg/dL (60-115)
--- NOTE | 2025-01-02 17:34 | PC.NURSE ---
Daughter stating not to give patient lovoneox injection. she will get her mother up and have her walk and she is not worried about blood clots. educated on why lovenox is prescribed , daughter stating no not to give injection
[2025-01-02 18:43] LABS: Stroke Lab Use COMPLETE
[2025-01-02 20:22] VITALS: BP 170/77; PULSE 88; RESP 20; TEMP 36.7; O2SAT 96
--- NOTE | 2025-01-02 21:01 | PHA.MEDREC ---
Pharmacy Consult ? Medication Reconciliation Pharmacy has completed the medication reconciliation. Pt daughter had Rx bottles on from a [facility] with recent fills on them (Amlodipine, Lisinopril, Rosuvastatin and Janument)and confirmed how the pt is taking them. Pt started taking Amoxicillin 500-125mg tab on 12/28 and is taking it twice a day instead of the TID; the daughter confirmed the pt gets nauseous when taking these meds and pt has a hard time waking up in the middle of the night to take the 3rd dose.
--- NOTE | 2025-01-02 22:01 | PC.NURSE ---
Family at bedside, Alexandria Case, leaving for the night, and is requesting a phone call whenever pt gets transferred upstairs for admission questions as pt is not able to provide health information. Alexandria also states pt not to take any blood thinners or be given new medications without Alexandrias consent. Pt in agreement with this. Monitoring is ongoing.
[2025-01-02 22:25] LABS: Glucose, Whole Blood 260 mg/dL (60-115)
[2025-01-02] MEDS: Insulin Lispro 100 UNIT/ML 3 ML VIAL SUBCUT (22:36)
[2025-01-02] MEDS: Atorvastatin Calcium 40 MG TABLET PO (22:36)
[2025-01-02 23:48] VITALS: BP 161/95; PULSE 81; RESP 16; TEMP 36.7; O2SAT 97
--- NOTE | 2025-01-02 23:49 | MHC.EDTECH ---
This pct assumed care of Patient at 2300 ,Patient awake ,vitals taken ,Patient aware we need urine sample ,all safety measure in place .
[2025-01-03] VITALS (9 sets, daily range): BP systolic 125–155; BP diastolic 78–94; PULSE 71–96; RESP 15–20; TEMP 36.3–37.2; O2SAT 96–98; BMI 19.0
--- NOTE | 2025-01-03 05:50 | MHC.EDTECH ---
0600 rounding done ,vitals taken ,Pt slept most of the night ,was incontinent of urine 2 times ,care given .
--- NOTE | 2025-01-03 07:00 | CA_ITS ---
Transthoracic Echocardiogram Patient (Last, First, Middle): Annalise Melendez, Gender: Female Date of : 1955 Age: 69 Procedure Date: 01/03/2025 Procedure Type: Transthoracic Echocardiogram Location[place] [facility] [place] Height: 165.1 cm Weight: 51.26 kg BSA: 1.55 m2 Heart Rate: bpm BP: 132 / 81 mmHg R Developer: Referring MD: Andrew Lockhart MD Assistant Golf Professional: Luis M Saez MD Symptoms: Stroke , slurred speech Study Quality: Adequate ECG Rhythm: Sinus Conclusions: - 1. Normal LV ejection fraction of 60 65% with mild LVH with impaired relaxation filling pattern 2. Cardiac valvular Dopplers within normal limits 3. Normal measured RV systolic pressure 4. No gross pericardial effusion Findings Left Ventricle Normal left ventricular size and systolic function. There is mildly increased left ventricular wall thickness. The visually estimated ejection fraction is between 60-65%. Spectral Doppler is indicative of an impaired relaxation filling pattern. E/E prime ratio is between 8 and 15 consistent with indeterminate filling pressures. Right Ventricle Normal right ventricular cavity size and systolic function. Atria Both atria are normal in size. There is a mobile atrial septum noted. Interatrial shunt cannot be excluded. Aortic Valve Normal aortic valve structure and function. There is mild calcification of the aortic valve. There is no aortic valve stenosis. There is no aortic valve regurgitation. Mitral Valve Normal mitral valve structure and function. There is trace mitral valve regurgitation. There is no mitral valve stenosis. Pulmonic Valve The pulmonic valve is likely normal. Tricuspid Valve Normal tricuspid valve structure. There is trace tricuspid valve regurgitation. The right ventricular systolic pressure is 23 mmHg. Normal right atrial pressure. There is no evidence of pulmonary hypertension. Great Vessels All visible segments of the aorta are normal in size. The pulmonary artery was not well visualized. Small plaque is seen in the sino tubular ridge. Venous The inferior vena cava is normal in size and collapses greater than 50% with inspiration. Pericardium/Pleural There is no evidence of pericardial effusion. Prior Study Comparison No prior study available for comparison. Measurements 2D Linear Measurements IVSd: 1.25 0.6-0.9/0.6-1.0 cm LVIDd: 3.53 3.9-5.3/4.2-5.9 cm LVIDd Index: 2.28 2.4-3.2/2.2-3.1 cm/m2 LVIDs: 2.06 2.0-3.6 cm LVPWd: 1.25 0.7-1.1 cm Ao Root: 3.20 2.1-3.5 cm LA Diam: 3.10 2.7-3.8/3.0-4.0 cm LAIDs Index: 2.00 1.5-2.3 cm/m2 LV Mass: 182.28 67-162/88-224 g LV Mass Index: 117.60 43-95/49-115 g/m2 LVOT Diam: 2.00 3.0+(-)1.3 cm Mitral Valve MV VTI: 0.20 MV Pk Michael: 1.03 MV Mn Michael: 0.54 MV Pk Grad: 4.00 MV Mn Grad: 1.00 MV Pk E: 0.49 MV PK A: 0.99 MV Decel Time: 206.00 E/A: 0.50 E'Lateral: 8.81 E'Medial: 4.13 E/E' Med: 11.80 E/E' Lat: 5.50 PHT: 60.00 MVA PHT: 3.67 MVA Continuity: 4.43 Decel [place]: 2.37 Aortic Valve AoV Pk Michael: 1.80 AoV Mn Michael: 1.08 AoV VTI: 0.29 AoV Pk Grad: 13.00 Aov Mn Grad: 6.00 TRACIE Cont.VTI: 3.00 LVOT LVOT Pk Michael: 1.72 LVOT Mn Michael: 1.16 LVOT VTI: 0.28 LVOT Pk Grad: 12.00 LVOT Mn Grad: 6.00 LVOT Diam: 2.00 LVOT Area: 3.14 Diastolic Function MV Pk E: 0.49 MV Pk A: 0.99 E/A: 0.50 E'Medial: 4.13 E/E' Med: 11.80 E' Laterial: 8.81 E/E' Lat: 5.50 Right Ventricle TAPSE (mm): 28.00 TVS' Michael: 11.00 Tricuspid Valve TR Pk Michael: 2.22 TR Pk Grad: 20.00 RA Press: 3.00 RVSP: 23.00 Great Vessels Aorta Ao Root-2D: 3.20 2.0-3.7 cm Ao Asc: 3.40 2.1-3.4 cm Pulmonary Valve PV Pk Michael: 1.30 Peak PV Grad: 7.00 Updated in Other Vendor System with Status of Final Luis M Saez MD electronically signed on 01/03/2025 12:39:10 PM with status of Final
[2025-01-03 07:12] LABS: Glucose, Whole Blood 132 mg/dL (60-115)
[2025-01-03 08:52] LABS: MANUAL DIFF FLAG NO
[2025-01-03 08:56] LABS: Basophils Absolute Auto 0.1 X10*3/uL (0.0-0.2); Basophils Percent Auto 0.5 % (0-2); Eosinophils Absolute Auto 0.2 X10*3/uL (0.0-0.4); Eosinophils Percent Auto 1.5 % (0-4); Hematocrit 36.5 % (37.0-47.0); Hemoglobin 12.1 g/dl (12.0-16.0); Imm Gran Abs Auto 0.11 X10*3/uL (0.00-0.03); Imm Gran Pct Auto 0.9 % (0.0-0.4); Lymphocytes Absolute Auto 3.2 X10*3/uL (1.2-4.9); Lymphocytes Percent Auto 26.9 % (20-40); Mean Corpuscular HGB Conc 33.2 g/dl (31.0-35.0); Mean Corpuscular Hemoglobin 28.9 pg (27.0-33.0); Mean Corpuscular Volume 87.3 fL (80.0-98.0); Mean Platelet Volume 9.8 fL (9.4-12.3); Monocytes Percent Auto 8.4 % (2-11); Neutrophils Absolute Auto 7.2 x10*3/uL (2.0-8.3); Neutrophils Percent Auto 61.8 % (45-73); Platelet Count 393 X10*3/uL (160-400); Red Blood Count 4.18 X10*6/uL (4.20-5.50); Red Cell Distribution Width 11.9 % (11.0-16.0); White Blood Count 11.7 X10*3/uL (4.8-10.8)
[2025-01-03 09:27] LABS: Alanine Aminotransferase 14 U/L (0-31); Albumin Level 3.6 g/dL (3.5-5.0); Alkaline Phosphatase 69 U/L (39-117); Anion Gap 12 (12-20); Aspartate Amino Transferase 20 U/L (5-31); Bilirubin Total 0.7 mg/dL (0.0-1.0); Blood Urea Nitrogen 4 mg/dL (9-16); Calcium 9.5 mg/dL (8.4-10.2); Carbon Dioxide 26 mmol/L (22-29); Chloride 103 mmol/L (96-108); Creatinine Clr Calc Pharmacy 68.4; Estimated Glomerular Filt Rate > 60; Glucose Random 206 mg/dL (60-115); Potassium 3.4 mmol/L (3.3-5.1); Sodium 138 mmol/L (135-145)
[2025-01-03] MEDS: Aspirin Enteric Coated 81 MG TABLET.DR PO (09:49)
[2025-01-03] MEDS: Insulin Glargine,Hum.rec.anlog 100 UNIT/ML 10 ML VIAL 8 UNIT SUBCUT (09:51)
--- NOTE | 2025-01-03 10:12 | HO.PM.IMPN ---
Subjective Subjective Date of Service: 01/03/25 Interval History: Seen and evaluated this morning feels little better MR showing evidence of new lacunar basal ganglia stroke no other overnight events Review of Systems No fever, chills but has right sided weakness No chest pain, palpitation No shortness of breath or coughing No abdominal pain, nausea or vomiting No urinary symptoms No any rash or wounds Physical Exam Vital Signs: Vital Signs: Last Vital Signs Temp 97.4 F 01/03/25 08:11 Pulse 71 01/03/25 08:57 Resp 17 01/03/25 08:11 BP 151/85 H 01/03/25 08:57 Pulse Ox 96 01/03/25 08:57 O2 Del Method Room Air 01/03/25 08:11 BMI result Body Mass Index 18.8 Const: Other: Constitutional : Awake, interactive, not in distress Neck : Normal inspection, Supple Cardiovascular : RRR, no JVP, no lower extremity edema Respiratory : good bilateral air entry, no crackles, wheezes or rhonchi Gastrointestinal: soft, lax, Normal bowel sounds, Non tender Skin : Warm, Dry Neurological : Alert & oriented x3, mild right sided weakness on RUE, slurred speech and droop on right side of face Objective Data Active Medications Acetaminophen (Acetaminophen 325 Mg Tablet) 650 mg PO Q6H PRN PRN Reason: Pain, Mild 1-3,fever,headache Amoxicillin/Clavulanate Potassium (Amoxicillin/Potassium Clav 500 Mg Tablet) 500 mg PO BID [facility] Aspirin (Aspirin Enteric Coated 81 Mg Tablet.) 81 mg PO DAILY [facility] Last Admin: 01/03/25 09:49 Dose: 81 mg Documented By: MALIHA Atorvastatin Calcium (Atorvastatin Calcium 40 Mg Tablet) 40 mg PO BEDTIME [facility] Last Admin: 01/02/25 22:36 Dose: 40 mg Documented By: CARLOS Calcium Carbonate (Calcium Carbonate 750 Mg Tab.Chew) 750 mg PO Q4H PRN PRN Reason: Heartburn Enoxaparin Sodium (Enoxaparin Sodium 40 Mg/0.4 Ml Syringe) 40 mg SUBCUT Q24H [facility] Last Admin: 01/02/25 17:33 Dose: Not Given Documented By: SERJIO Non-Admin Reason: See Note Insulin Glargine (Insulin Glargine,Hum.Rec.Anlog 100 Unit/Ml 10 Ml Vial) 8 unit SUBCUT DAILY [facility] Last Admin: 01/03/25 09:51 Dose: 8 unit Documented By: MALIHA Insulin Human Lispro (Insulin Lispro 100 Unit/Ml 3 Ml Vial) 0 unit SUBCUT QIDACHS [facility]; Protocol Last Admin: 01/03/25 07:07 Dose: Not Given Documented By: PIOTR Non-Admin Reason: No Insulin Coverage Comments: POC 132 Magnesium Hydroxide (Milk Of Magnesia 30 Ml Oral.Susp) 30 ml PO DAILY PRN PRN Reason: Constipation Melatonin (Melatonin 3 Mg Tablet) 6 mg PO BEDTIME PRN PRN Reason: Insomnia Sodium Chloride (0.9 % Sodium Chloride Flush 3 Ml Syringe) 3 ml IVFLUSH QSHIFT [facility] Last Admin: 01/03/25 00:49 Dose: Not Given Documented By: CARLOS Non-Admin Reason: Patient Asleep Labs 01/03/25 08:17 01/03/25 08:17 Labs: Laboratory Results - last 24 hr 01/02/25 01/02/25 01/02/25 14:53 14:54 15:03 MCV 86.3 MCH 28.9 MCHC 33.5 RDW 11.9 Plt Count 391 MPV 9.6 Immature Gran % (Auto) 1.0 H Neut % (Auto) 70.5 Lymph % (Auto) 20.2 Fountain % (Auto) 7.2 Eos % (Auto) 0.6 Baso % (Auto) 0.5 Lymph # (Auto) 2.5 Fountain # (Auto) 0.9 Eos # (Auto) 0.1 Baso # (Auto) 0.1 Abs Immat Gran (auto) 0.13 H Absolute Neuts (auto) 8.8 H Absolute Nucleated RBC 0.000 Nucleated RBC % (auto) 0.0 PT 12.2 Whole Blood PT 12.6 INR 1.1 Whole Blood INR 1.0 APTT 25.2 L Anion Gap 15 Estim Creat Clear Calc 58.0 Estimated GFR > 60 POC Glucose 350 H* Random Glucose 365 H* Estimat Average Glucose 252 Hemoglobin A1c % 10.4 H Calcium 10.0 Total Bilirubin AST ALT Alkaline Phosphatase Total Protein Albumin Triglycerides 139 Cholesterol 133 LDL Cholesterol, Calc 71 HDL Cholesterol 35 L 01/02/25 01/02/25 01/03/25 17:01 22:21 07:05 MCV MCH MCHC RDW Plt Count MPV Immature Gran % (Auto) Neut % (Auto) Lymph % (Auto) Fountain % (Auto) Eos % (Auto) Baso % (Auto) Lymph # (Auto) Fountain # (Auto) Eos # (Auto) Baso # (Auto) Abs Immat Gran (auto) Absolute Neuts (auto) Absolute Nucleated RBC Nucleated RBC % (auto) PT Whole Blood PT INR Whole Blood INR APTT Anion Gap Estim Creat Clear Calc Estimated GFR POC Glucose 135 H 260 H 132 H Random Glucose Estimat Average Glucose Hemoglobin A1c % Calcium Total Bilirubin AST ALT Alkaline Phosphatase Total Protein Albumin Triglycerides Cholesterol LDL Cholesterol, Calc HDL Cholesterol 01/03/25 08:17 MCV 87.3 MCH 28.9 MCHC 33.2 RDW 11.9 Plt Count 393 MPV 9.8 Immature Gran % (Auto) 0.9 H Neut % (Auto) 61.8 Lymph % (Auto) 26.9 Fountain % (Auto) 8.4 Eos % (Auto) 1.5 Baso % (Auto) 0.5 Lymph # (Auto) 3.2 Fountain # (Auto) 1.0 Eos # (Auto) 0.2 Baso # (Auto) 0.1 Abs Immat Gran (auto) 0.11 H Absolute Neuts (auto) 7.2 Absolute Nucleated RBC 0.000 Nucleated RBC % (auto) 0.0 PT Whole Blood PT INR Whole Blood INR APTT Anion Gap 12 Estim Creat Clear Calc 68.4 Estimated GFR > 60 POC Glucose Random Glucose 206 H Estimat Average Glucose Hemoglobin A1c % Calcium 9.5 Total Bilirubin 0.7 AST 20 ALT 14 Alkaline Phosphatase 69 Total Protein 7.0 Albumin 3.6 Triglycerides Cholesterol LDL Cholesterol, Calc HDL Cholesterol Assessment and Plan (1) Right sided weakness: Status: Acute (2) Slurred speech: Status: Acute (3) Hyperglycemia: Status: Acute (4) Acute stroke of basal ganglia: Status: Acute (5) Uncontrolled diabetes mellitus with hyperglycemia: Status: Acute Plan A 69 years old lady with PMH of alcohol abuse in remission, elevated blood sugar who moved recently from [facility] and has no daily medicaitons presenting with sudden onset right sided weakness and slurred speech. Acute left basal ganglia lacunar stroke Still reporting lurred speech, facial droop and right sided weakness CT and CTA did not show acute findings but 70% stenosis in right and less than 70% on left MRI showing Acute nonhemorrhagic lacunar infarct in the left basal ganglia. Continue ASA Atorva Statin Lipin profile done pending ECHO Neurology consult PT\OT\[employer] Hyperglycemia in uncontrolled type 2 DM HbA1c 10.9 SSI restart Metformin and Sitagliptin start Lantus insulin and monitor response HTN Lisinopril, amlodipine on hold Left ear pain recent otitis media, continue Augmentin follow with ENT as outpatient if not resolving DVT PPx Lovenox The patient will be admitted for night for acute stroke pending PT, OT, [employer] and neurology evaluation Quality Stroke Does the patient have a stroke diagnosis?: Yes Reason for No Anti-thrombotic by Day Two: N/A - Med Ordered VTE Prior VTE?: No VTE Risk Level:: Medical - moderate - high VTE Device Contraindication: Treatment Not Indicated VTE Drug Contraindication: N/A - Med Ordered
--- NOTE | 2025-01-03 11:07 | MHC.CM.PN ---
IMM 01/03/25, Pt lives with her dtr, she is SSO. She does not have home health services. For DME, she has a rollator walker. HCP discussed, she would like to talk about it when her dtr is back, later today. PT has rec. home PT, CM will discuss VNA with pt and dtr. DCP: home with services, CM to follow for DC needs.
[2025-01-03 11:12] LABS: Glucose, Whole Blood 236 mg/dL (60-115)
[2025-01-03] MEDS: Insulin Lispro 100 UNIT/ML 3 ML VIAL SUBCUT ×3 (11:21→21:35)
[2025-01-03] MEDS: Amoxicillin/Potassium Clav 500 MG TABLET PO ×2 (11:22→21:35)
[2025-01-03] MEDS: SITagliptin Phosphate 50 MG TABLET PO (11:22)
[2025-01-03] MEDS: Acetaminophen 325 MG TABLET 650 MG PO (11:29)
[2025-01-03] MEDS: 0.9 % Sodium Chloride Flush 3 ML SYRINGE IVFLUSH ×3 (11:35→21:36)
--- NOTE | 2025-01-03 15:50 | MHC.SL.SWA ---
Speech Pathologist Impression: Mild dysphagia secondary to R sided facial weakness Risk of Aspiration Due to: Hx of CVAs R sided weakness Dysphasia Diet Status: Liquid Consistency and Strategies for Safe Swallow: Liquid Intake Recommendation: Thin Liquid Intake Strategies: Solid Food Consistency: Dietary Recommendations: Chopped/Advanced (NDD3) Additional Modifications to Solid Foods: Oral Medication Intake: Whole with Puree Please contact the pharmacy regarding appropriate crushable or liquid drug formulations that are available whenever modified delivery is recommended. Compensatory Strategies and Precautions to be Taken for Safe Swallow: Supervision While Eating and Drinking for Safe Swallow: Total Assistance (1:1) Foods to Avoid: Swallowing Recommended Treatments: Recommendation for Speech: Speech Therapy through VNA Comment: Pt presents with mild dysphagia characterized by labial and lingual weakness on R side of mouth upon chewing solids. Adequate labial and lingual movements observed with sipping from straw. No overt s/s of aspiration observed during trials. Pt had elicited cough x2 prior to trials, considered WFL. Pt daughter reported pt had hx of prior CVA with subsequent weakness of facial muscles, which resolved. Pt daughter got pt a salad today as pt did not like downgraded diet (was on NDD2). RETAIL ASSOCIATE described results of bedside swallow evaluation to pt and daughter, stressing the importance of safety precautions to reduce pt risk for aspiration in initial phases of recovery. Pt and daughter verbalize understanding and agree with recommendations. Recc NDD3 with thins, aspiration precautions, upright positioning, slow pacing, alternating consistencies, periodic throat clear. Recc RETAIL ASSOCIATE tx upon d/c to address dysphagia management, strengthening exercises and use of safety strategies to reduce pt risk for aspiration. Frequency/Duration: Date Range for Service Req: Timeline to reassess: Hoop Maker Helper Machine Clinican/Clinical Fellow: No Supervisory Statement: I have reviewed and agree with the student/clinical fellow's documentation: N/A Speech Language Pathologist: Danielle Donald M.S., CCC-RETAIL ASSOCIATE
[2025-01-03 16:11] LABS: Glucose, Whole Blood 233 mg/dL (60-115)
--- NOTE | 2025-01-03 17:08 | P.CNNE_ITS ---
History of Present Illness Data of Consult Service Date: 01/03/25 Primary Care Provider: Stone Wiley III, MD HPI Reason for consult: Stroke This is a 69 years old woman with h/o alcohol abuse in remission, elevated blood sugar who moved recently from [facility] and has no daily medications presenting with sudden onset right sided weakness and slurred speech. No chest pain, palpitations, SOB, nausea, vomiting, diarrhea or urinary symptoms. this morning she was noted by her daughter to have troubles walking in the house with reported slurred speech. presented to ED and continues to show slight right facial droop and slurred speech which improved since coming to ED. noted to have elevated WBCs and Glucose. In ED a CT \ CTA were done showing no hemodynamically significant narrowing of bilateral carotids of about 60%. MRI show sa n acute small left extrenal capsule basal ganglia lacunar infarct and extensive chronic bilateral white matter microvascular disease. [facility] Past Medical History Medical History (Updated 01/03/25 @ 10:19 by Andrew Lockhart MD) Uncontrolled diabetes mellitus with hyperglycemia Social History Social History Household Members: Family Housing: House Do you presently have visiting nurse or other home services: No Alcohol intake: former Patient Tobacco Use Status: Never used Tobacco Smoked in Last 30 Days: No e-Cigarette/Vaping Use: Never Used Patient Interested in Nicotine Replacement: No Use of substances other than those prescribed or required for medical reasons: No Have you been hit, kicked, punched, or otherwise hurt by someone within the past year? If so, by whom?: No Do you feel safe in your current relationship?: No Current Relationship Is there a partner from a previous relationship who is making you feel unsafe now?: No Are you made to feel afraid or neglected: No Spiritual Healthcare Practices: Jehovah witness Advance Directives: No Advance Directives Information Provided: No Do you have a plan to hurt others: No Plan Recently lost weight without trying: Yes How much weight loss: Unsure Nutrition Risks: Difficulty swallowing Patient : No : No Poor oral hygiene: No service: No Meds Allergies Allergy/AdvReac Type Severity Reaction Status Date / Time No Known Allergies Allergy Verified 01/02/25 14:42 [No Known Allergies*] Active Medications: Current Medications Acetaminophen (Acetaminophen 325 Mg Tablet) 650 mg PO Q6H PRN PRN Reason: Pain, Mild 1-3,fever,headache Last Admin: 01/03/25 11:29 Dose: 650 mg Amoxicillin/Clavulanate Potassium (Amoxicillin/Potassium Clav 500 Mg Tablet) 500 mg PO BID [facility] Last Admin: 01/03/25 11:22 Dose: 500 mg Aspirin (Aspirin Enteric Coated 81 Mg Tablet.Dr) 81 mg PO DAILY [facility] Last Admin: 01/03/25 09:49 Dose: 81 mg Atorvastatin Calcium (Atorvastatin Calcium 40 Mg Tablet) 40 mg PO BEDTIME [facility] Last Admin: 01/02/25 22:36 Dose: 40 mg Calcium Carbonate (Calcium Carbonate 750 Mg Tab.Chew) 750 mg PO Q4H PRN PRN Reason: Heartburn Enoxaparin Sodium (Enoxaparin Sodium 40 Mg/0.4 Ml Syringe) 40 mg SUBCUT Q24H [facility] Last Admin: 01/02/25 17:33 Dose: Not Given Insulin Glargine (Insulin Glargine,Hum.Rec.Anlog 100 Unit/Ml 10 Ml Vial) 8 unit SUBCUT DAILY [facility] Last Admin: 01/03/25 09:51 Dose: 8 unit Insulin Human Lispro (Insulin Lispro 100 Unit/Ml 3 Ml Vial) 0 unit SUBCUT QIDACHS [facility]; Protocol Last Admin: 01/03/25 11:21 Dose: 4 unit Magnesium Hydroxide (Milk Of Magnesia 30 Ml Oral.Susp) 30 ml PO DAILY PRN PRN Reason: Constipation Melatonin (Melatonin 3 Mg Tablet) 6 mg PO BEDTIME PRN PRN Reason: Insomnia Metformin HCl (Metformin Hcl 1,000 Mg Tablet) 1,000 mg PO BIDWM [facility] Sitagliptin Phosphate (Sitagliptin Phosphate 50 Mg Tablet) 50 mg PO DAILY [facility] Last Admin: 01/03/25 11:22 Dose: 50 mg Sodium Chloride (0.9 % Sodium Chloride Flush 3 Ml Syringe) 3 ml IVFLUSH QSHIFT [facility] Last Admin: 01/03/25 11:35 Dose: 3 ml Home Medications ?Medication ?Instructions ?Recorded ?Confirmed ?Last Taken ?Type amlodipine 2.5 mg tablet 2.5 mg PO DAILY 01/02/25 01/02/25 01/02/25 History amoxicillin 500 mg-potassium 1 tab PO BID 01/02/25 01/02/25 01/02/25 History clavulanate 125 mg tablet (Augmentin) lisinopril 10 mg tablet 10 mg PO DAILY 01/02/25 01/02/25 01/02/25 History loperamide 2 mg-simethicone 125 mg 2 tab PO DAILY 01/02/25 01/02/25 01/02/25 History tablet (Imodium Multi-Symptom Relief) rosuvastatin 10 mg tablet 10 mg PO DAILY 01/02/25 01/02/25 01/02/25 History sitagliptin phosphate 50 1 tab PO BID 01/02/25 01/02/25 01/02/25 History mg-metformin 1,000 mg tablet (Janumet) Physical Exam 2 Vital Signs: Vital Signs: Last Vital Signs Temp 97.4 F 01/03/25 15:46 Pulse 96 01/03/25 15:46 Resp 16 01/03/25 15:46 BP 142/78 H 01/03/25 15:46 Pulse Ox 97 01/03/25 15:46 O2 Del Method Room Air 01/03/25 15:46 BMI result Body Mass Index 19.0 Neuro: Other: Subtle right angle of mouth droop. Mild drift of Rue with 5-?5 strength. LE normal. Results Labs 01/03/25 08:17 01/03/25 08:17 Labs: Short CBC 01/03/25 Range/Units 08:17 WBC 11.7 H (4.8-10.8) X10*3/uL Hgb 12.1 (12.0-16.0) g/dl Hct 36.5 L (37.0-47.0) % Plt Count 393 (160-400) X10*3/uL BMP 01/03/25 08:17 Sodium 138 Potassium 3.4 Chloride 103 Carbon Dioxide 26 BUN 4 L Creatinine 0.61 Calcium 9.5 Liver Function 01/03/25 Range/Units 08:17 Total Bilirubin 0.7 (0.0-1.0) mg/dL AST 20 (5-31) U/L ALT 14 (0-31) U/L Alkaline Phosphatase 69 (39-117) U/L Albumin 3.6 (3.5-5.0) g/dL Assessment and Plan (1) Acute stroke of basal ganglia: Status: Acute Small acute left lateral basal ganglia -external capsule ischemic infract and extensive chronic bilateral white matter microvascular disease. Recom. PT/OT. Control oF BP and sugar. ASA 81mg . Atorvastatin. Procedures Date of Service Date of Service: 01/03/25
[2025-01-03] MEDS: Enoxaparin Sodium 40 MG/0.4 ML SYRINGE SUBCUT (17:41)
--- NOTE | 2025-01-03 18:36 | PC.NURSE ---
Lovenox administered to the pt , hotel houseman at bedside and pt agreed to the dose ,
[2025-01-03 21:06] LABS: Glucose, Whole Blood 187 mg/dL (60-115)
[2025-01-03] MEDS: Atorvastatin Calcium 40 MG TABLET PO (21:35)
[2025-01-04 04:00] VITALS: BP 138/87; PULSE 92; RESP 16; TEMP 36.4; O2SAT 98
[2025-01-04 07:17] VITALS: BP 135/93; PULSE 88; RESP 17; TEMP 36.2; O2SAT 95
[2025-01-04 07:50] LABS: Glucose, Whole Blood 155 mg/dL (60-115)
[2025-01-04] MEDS: Aspirin Enteric Coated 81 MG TABLET.DR PO (08:34)
[2025-01-04] MEDS: Insulin Lispro 100 UNIT/ML 3 ML VIAL SUBCUT ×2 (08:34→11:44)
[2025-01-04] MEDS: Amoxicillin/Potassium Clav 500 MG TABLET PO (08:34)
[2025-01-04] MEDS: SITagliptin Phosphate 50 MG TABLET PO (08:34)
[2025-01-04] MEDS: Insulin Glargine,Hum.rec.anlog 100 UNIT/ML 10 ML VIAL 10 UNIT SUBCUT (08:35)
[2025-01-04] MEDS: 0.9 % Sodium Chloride Flush 3 ML SYRINGE IVFLUSH (08:40)
--- NOTE | 2025-01-04 11:06 | PM.DS ---
DS: Providers Provider Date of Service: 01/04/25 Date of admission: 01/02/25 16:47 Date of discharge: 01/04/25 Primary care physician: Stone Wiley III, MD Consults: 01/02/25 16:11 Consult to Neurology Routine Consulting Provider: [facility] Reason for consultation: New right sided weakness and slurred speech DS: Diagnosis Discharge Diagnosis (1) Acute stroke of basal ganglia: Status: Acute (2) Uncontrolled diabetes mellitus with hyperglycemia: Status: Acute (3) Right sided weakness: Status: Acute (4) Slurred speech: Status: Acute DS: Summary Hospital Course Hospital Course: Admission note HPI A 69 years old lady with PMH of alcohol abuse in remission, elevated blood sugar who moved recently from [facility] and has no daily medicaitons presenting with sudden onset right sided weakness and slurred speech. The patient was resting comfortable in her bed. No chest pain, palpitations, SOB, nausea, vomiting, diarrhea or urinary symptoms. this morning she was noted by her daughter to have troubles walking in the house with reported slurred speech. presented to ED and continues to show facial droop and slurred speech which improved since coming to ED. noted to have elevated WBCs and Glucose. In ED a CT \ CTA were done showing significant narrowing of bilateral carotids of >70%. Also has Probable effusion, left mastoid air cells and left hypotympanum as she was on antibiotics for left ear infection. Admtted for further work up and management. Hospital course # The patient was admitted for treatment for Acute left basal ganglia lacunar stroke as she presented with slurred speech, facial droop and right sided weakness as CT and CTA did not show acute findings but 70% stenosis in right and less than 70% on left but MRI showing Acute nonhemorrhagic lacunar infarct in the left basal ganglia. Started on Aspirin 81 mg daily. AtorvaStatin 40 mg. ECHO was done showing normal EF. Kept on Tele with no abnormal rhythm. Evaluated by Neurology who recommended baby ASA and Statin. Seen by PT\OT\CLIENT ENGAGEMENT MANAGER who recommended home therapy which will be followed by VNA. # Hyperglycemia in uncontrolled type 2 DM with HbA1c 10.9. controlled with SSI along with home dose Metformin and Sitagliptin. started on Lantus insulin for better control. to be followed by PCP and VNA for further adjustment as needed. Diabetes education provided for new insulin. # Left ear pain, treated as recent otitis media, continued home dose Augmentin. advised to follow with ENT as outpatient if not resolving Discharge plan Stop Rosuvastatin and Start Atorvastatin Start Aspirin 81 mg daily Start Lantus insulin 10 units daily Start Sliding scale insulin (short acting) with meals Continue with physical and occupational therapy at home Follow with speech therapy Follow with Vascular surgery as outpatient for carotid artery stenosis. Time Attestation Discharge Coordination Time (in mins): 42 Quality: Safe Use of Opioids Does Pt have an Active Cancer Diagnosis on the Problem List?: No Quality: Stroke Does the patient have a stroke diagnosis?: No Physical Exam Vital Signs: Vital Signs: Last Vital Signs Temp 97.1 F 01/04/25 07:17 Pulse 88 01/04/25 07:17 Resp 17 01/04/25 07:17 BP 135/93 H 01/04/25 07:17 Pulse Ox 95 01/04/25 07:17 O2 Del Method Room Air 01/04/25 07:17 BMI result Body Mass Index 19.0 Const: Other: Constitutional : Awake, interactive, not in distress Neck : Normal inspection, Supple Cardiovascular : RRR, no JVP, no lower extremity edema Respiratory : good bilateral air entry, no crackles, wheezes or rhonchi Gastrointestinal: soft, lax, Normal bowel sounds, Non tender Skin : Warm, Dry Neurological : Alert & oriented x3, mild right sided weakness on RUE, improved slurred speech and droop on right side of face DS: Data Data Completed and Pending Labs on day of discharge: Laboratory Results - last 24 hr 01/03/25 01/03/25 01/03/25 11:09 16:05 20:58 POC Glucose 236 H 233 H 187 H 01/04/25 07:47 POC Glucose 155 H Imaging MRI - head: Radiologist's impression: ITS Impressions Head CT 01/02/25 14:19 IMPRESSION: No acute intracranial hemorrhage. Extensive White matter disease with multifocal old lacunar infarcts likely related to small vessel occlusive disease. Atherosclerosis disease, intracranial. Probable effusion, left mastoid air cells and left hypotympanum.. This critical result was discussed with emergency physician Dr. Nico Santiago at 2:33 PM hours on January 02, 2025.. It was ascertained that the content and urgency of the report was understood at the time of direct communication. Electronically signed by: Hernandez Bernardo MD 01/02/2025 02:38 PM EDT RP Head/Neck CTA 01/02/25 14:20 IMPRESSION: No main cerebral artery occlusion or embolus. No gross renal arteries Calcified plaque right ICA at representing 70% stenosis. Calcified plaque left ICA at representing less than 70% stenosis. Atherosclerosis disease, proximal vertebral arteries/V1 segments.. No dissection. Probable effusion, left mastoid air cells and left hypotympanum. White matter disease likely related to small vessel occlusive disease. This critical test result is communicated to: Emergency physician Dr. Nico Santiago via [employer] connect on January 02, 2025 at 2:50 PM Electronically signed by: Hernandez Bernardo MD 01/02/2025 02:53 PM EDT RP Chest X-Ray 01/02/25 14:24 IMPRESSION: Mild prominent ascending thoracic aorta, more conspicuous since prior exam. Electronically signed by: Hernandez Bernardo MD 01/02/2025 03:39 PM EDT RP Discharge Plan Discharge Anticipated Discharge Date/Time: 01/04/25 10:57 Patient Disposition: Home Health Service Discharge Diagnosis: Stroke Uncontrolled diabetes Referrals: Stone Wiley III, MD [Primary Care Provider] - 1 Week Discharge Medications: New atorvastatin 40 mg Tablet 40 mg PO BEDTIME Qty: 90 0RF aspirin 81 mg Tablet,Delayed Release (Dr/Ec) 81 mg PO DAILY Qty: 90 0RF (DME) FreeStyle Lite Strips Strip See Rx Instructions .ROUTE .MEDSUPPLY Qty: 100 0RF Rx Instructions: QID (DME) blood-glucose meter [FreeStyle Lite Meter] Kit See Rx Instructions .ROUTE .MEDSUPPLY Qty: 1 0RF Rx Instructions: As directed alcohol swabs [Alcohol Pads] Pads, Medicated 1 pad topical QIDACHS Qty: 200 0RF insulin lispro [Humalog KwikPen Insulin] 100 unit/mL insulin pen See Protocol subcut QIDACHS Qty: 15 0RF Protocol: Insulin Correction Scale Less than or equal to 110 ---- Give (units): 0 111 to 150 Give (units): 0 151 to 200 Give (units): 2 201 to 250 Give (units): 4 251 to 300 Give (units): 6 301 to 350 Give (units): 8 Greater than 350 Give (units): 10 Call MD if Blood Glucose > : 350 Rx Instructions: <150 mg/dL: No insulin. 151-200 mg/dL: 2 units. 201-250 mg/dL: 4 units. 251-300 mg/dL: 6 units. 301-350 mg/dL: 8 units. >350 mg/dL: 10 units + notify clinician insulin glargine 100 unit/mL (3 mL) insulin pen 10 unit subcut QAM Qty: 15 0RF (DME) lancets Misc See Rx Instructions .ROUTE .MEDSUPPLY Qty: 200 0RF Rx Instructions: QIDACH (DME) pen needle, diabetic [Pen Needle] 31 gauge x 5/16 needle See Rx Instructions .ROUTE .MEDSUPPLY Qty: 1200 0RF Rx Instructions: As directed Continued amlodipine 2.5 mg Tablet 2.5 mg PO DAILY lisinopril 10 mg Tablet 10 mg PO DAILY loperamide-simethicone [Imodium Multi-Symptom Relief] 2-125 mg Tablet 2 tab PO DAILY Janumet 50-1,000 mg Tablet 1 tab PO BID amoxicillin-pot clavulanate [Augmentin] 500-125 mg tablet 1 tab PO BID Discontinued rosuvastatin 10 mg Tablet 10 mg PO DAILY Discharge Orders: Discharge Order (Routine); Ordered 01/04/25 Ordered By: Andrew Lockhart Diet: Low fat, low cholesterol Activity on Discharge: As tolerated Stand Alone Forms: Patient Portal Discharge page Print Language: Congolese Care Plan Goals: Stop Rosuvastatin and Start Atorvastatin Start Aspirin 81 mg daily Start Lantus insulin 10 units daily Start Sliding scale insulin (short acting) with meals Continue with physical and occupational therapy at home Follow with speech therapy Follow with Vascular surgery as outpatient for carotid artery stenosis. Health Concerns: Acute basal ganglia stroke uncontrolled diabetes Plan of Treatment: Aspirin, Atorvastatin Physical therapy Assessment: as above Patient Instructions: Aspirin (By mouth), Atorvastatin (By mouth), Insulin Glargine (By injection), Insulin Lispro (By injection)
--- NOTE | 2025-01-04 11:11 | P.F2F_ITS ---
Service Date Service Date: 01/04/25 Encounter Date of encounter: 01/04/25 Reasons for Services Signs and symptoms assessed: Slurred speech right sided weakness new Insulin Reason for group home: diabetic teaching, monitoring of unstable blood sugar, medication management and teach disease management Reason for physical therapy: home safety and mobility and therapeutic exercises Reason for occupational therapy: home safety and mobility Reason for speech therapy: swallowing impairment and speech impairment Homebound: Leaving the home is medically contraindicated at this time without the asist of a device and/or another person due th the listed conditions above and below. Reason homebound: unsteady gait / fall risk Certification: Based on the above findings, I certify that this patient is confined to the home and needs intermittent group home care, physical therapy and/or speech therapy, or continues to need occupational therapy. The patient is under my care, and I have initiated the establishment of the plan of care. The patient will be followed by a physician who will periodically review the plan of care. Time Spent With Patient Time: Total time managing care of this patient today ____ minutes.
[2025-01-04 11:12] VITALS: BP 151/83; PULSE 93; RESP 16; TEMP 36.6; O2SAT 96
[2025-01-04 11:27] LABS: Glucose, Whole Blood 249 mg/dL (60-115)
--- NOTE | 2025-01-04 12:01 | MHC.CM.PN ---
Pt has been medically cleared for DC, she will go home via family transport and have [facility] services [facility].
== END 2025-01-04 12:00 | disposition home health service (06) | DRG 65 ==
LOC: HO.ED 16:38 → HO.EDOVER 16:47 → HO.IMC 01-03 05:08
PROVIDERS: Admitting Provider Student in an Organized Health Care Education/Training Program; Emergency Provider Emergency Medicine; PCP Internal Medicine; Visit Provider Student in an Organized Health Care Education/Training Program
DX: I63.81 Other cerebral infarction due to occlusion or stenosis of small artery (principal); G81.91 Hemiplegia, unspecified affecting right dominant side; I10 Essential (primary) hypertension; H92.02 Otalgia, left ear; R29.810 Facial weakness; R47.81 Slurred speech; R29.702 NIHSS score 2; E11.65 Type 2 diabetes mellitus with hyperglycemia; F10.11 Alcohol abuse, in remission; Z79.899 Other long term (current) drug therapy
CPT/HCPCS: 36415; 70450; 70496; 70498; 70551; 71045; 80048; 80053; 80061; 82947; 83036; 84484; 85025; 85610; 85730; 92610; 93005; 93306; 97162; 97166; 97530; 99285; J1650; Q9957; Q9967

== ENCOUNTER → 2025-01-02 14:20 | Outpatient (BNV) | payer OTHER, SELFPAY | PROVIDERS: Emergency Provider Emergency Medicine; Visit Provider Radiology Diagnostic Radiology | DX: I67.3 Progressive vascular leukoencephalopathy (principal); I63.81 Other cerebral infarction due to occlusion or stenosis of small artery; I67.82 Cerebral ischemia; M47.814 Spondylosis without myelopathy or radiculopathy, thoracic region | CPT/HCPCS: 70450; 70496; 70498; 70551; 71045 ==

== ENCOUNTER → 2025-01-02 14:20 | Outpatient (BNV) | payer OTHER, SELFPAY | PROVIDERS: Admitting Provider Student in an Organized Health Care Education/Training Program; Emergency Provider Emergency Medicine; PCP Internal Medicine; Visit Provider Internal Medicine Cardiovascular Disease | DX: R94.31 Abnormal electrocardiogram [ECG] [EKG] (principal); I63.9 Cerebral infarction, unspecified | CPT/HCPCS: 93010 ==

== ENCOUNTER 2025-01-02 16:47 | Outpatient (BNV) | payer OTHER, SELFPAY | END 2025-01-03 07:00 | PROVIDERS: Admitting Provider Student in an Organized Health Care Education/Training Program; Emergency Provider Emergency Medicine; PCP Internal Medicine; Visit Provider Internal Medicine Cardiovascular Disease | DX: I35.8 Other nonrheumatic aortic valve disorders (principal); I51.89 Other ill-defined heart diseases; I51.0 Cardiac septal defect, acquired | CPT/HCPCS: 93306 ==

== ENCOUNTER → 2025-01-02 16:47 | Outpatient (BNV) | payer OTHER, SELFPAY | PROVIDERS: Admitting Provider Student in an Organized Health Care Education/Training Program; Emergency Provider Emergency Medicine; PCP Internal Medicine; Visit Provider Psychiatry & Neurology Neurology | DX: I63.9 Cerebral infarction, unspecified (principal) | CPT/HCPCS: 99222 ==

== ENCOUNTER 2025-02-06 15:14 | Outpatient (AMB) | payer OTHER, SELFPAY ==
--- NOTE | 2025-02-06 15:29 | A.OFFVIS_ITS ---
Intake Visit Reasons: STROKE Allergies carisoprodol Allergy (Verified 02/05/25 18:21) Unknown ethinyl estradiol (From Seasonale (91)) Allergy (Verified 02/05/25 18:21) Unknown Medication List - Last Reconciled 02/06/25 by Hitesh Sebastian MD amlodipine 2.5 mg PO DAILY aspirin 81 mg PO DAILY atorvastatin 40 mg PO BEDTIME blood sugar diagnostic (FreeStyle Lite Strips) QID blood-glucose meter (FreeStyle Lite Meter kit) As directed cetirizine 10 mg PO DAILY PRN insulin glargine 10 units (0.1 mL) subcut QAM insulin lispro (Humalog KwikPen (U-100) Insulin) See Protocol sliding scale doses subcut QIDACHS lancets (FreeStyle Lancets) QIDACH lisinopril 10 mg PO DAILY loperamide-simethicone 2-125 mg (Imodium Multi-Symptom Relief) 2 tabs PO DAILY pen needle, diabetic (Pen Needle) QIDACH sitagliptin phos-metformin 50-1,000 mg (Janumet) 1 tab PO BID HPI Comments Details: This is a 69 years old woman with h/o alcohol abuse in remission, Diabetic for 15 yrs who had stopped her meds for 3-4 yrs with elevated blood sugar out of control, who moved recently from [facility]. She presented to [facility] on 12/31/24 with sudden onset right sided weakness and slurred speech. It has gotten a lot better in her walking . Speech and eating is better. No chest pain, palpitations, SOB, nausea, vomiting, diarrhea or urinary symptoms. this morning she was noted by her daughter to have troubles walking in the house with reported slurred speech. presented to ED and continues to show slight right facial droop and slurred speech which improved since coming to ED. noted to have elevated WBCs and Glucose. In ED a CT \ CTA were done showing no hemodynamically significant narrowing of bilateral carotids of about 60%. 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 She also complains of bilateral prickly pain and numbness in her feet below the ankles. It affects her sleep. [facility] Medical History (Updated 02/06/25 @ 15:46 by Hitesh Sebastian MD) Cerebrovascular accident Type 2 diabetes mellitus, controlled, with renal complications Hyperlipidemia Depression Diverticulitis of colon without hemorrhage Vitamin D deficiency Diabetic neuropathy Diabetes mellitus type 2 with neurological manifestations Osteoporosis Right sided weakness Slurred speech Uncontrolled diabetes mellitus with hyperglycemia Family History (Updated 02/05/25 @ 18:18 by Pippa Brandon MA) Mother Hypertension Cancer Osteoporosis High cholesterol Father Prostate cancer Daughter Diabetes Social History (Updated 02/05/25 @ 18:17 by Pippa Bradnon MA) Household Members: Family Housing: House Do you presently have visiting nurse or other home services: No Alcohol intake: former Patient Tobacco Use Status: Former Tobacco user e-Cigarette/Vaping Use: Never Used service: No Review of Systems Const Details: Sleep Difficulty getting to sleep??denies.??Difficulty maintaining sleep??denies?.??Urge to move legs??denies.?? Teeth grinding??denies.??Shouting or Kicking during sleep??denies.??Abnormal be havior during sleep??denies.?? Excessive sleep??denies.??Snoring??denies.??Daytime sleepiness??denies.? General/Constitutional Change in appetite??denies.??Chills??denies.??Fa tigue??denies.??Fever??denies.??Weight gain??denies.??Weight loss??denies.? Ophthalmologic Blurred vision??denies.??Diminished visual acuity??denies.? ENT Stuffiness??denies.??Decreased hearing??yes.??Dry mouth??denies.??Ear pain??denies.??Nosebleed??denies.?? Ringing in the ears??yes.??Sinus pain??denies.??Sore throat??denies.??Swollen glands??denies.? Endocrine Cold intolerance??denies.??Excessive thirst??denies.??Frequent urination??denies.??Heat intolerance??denies.? Respiratory Shortness of breath??yes.??Chest pain??denies.??Cough??denies.? Breast Breast lump??denies.??Nipple discharge??denies.? Cardiovascular Chest pain at rest??denies.??Chest pain with exertion??denies.??Claudication??denies.??Dizziness??denies.??Fluid accumulation in the legs??denies.??Irregular heartbeat??denies.??Palpitations??denies.? Gastrointestinal Abdominal pain??denies.??Constipation??denies.??Diarrhea??denies.?? Difficulty swallowing??denies.??Heartburn??denies.??Nausea??denies.??Rectal bleeding??denies.? Hematology Easy bruising??denies.??Prolonged bleeding??denies.? Genitourinary Frequent urination??denies.??Urgency??denies.??Incontinence??denies.??Erectile Dysfunction??denies.? Musculoskeletal Neck pain??denies.??Back pain??denies.??Muscle aches??denies.??Painful joints??denies.??Sciatica??denies.??Weakness??denies.? Podiatric Difficulty walking??denies.??Foot numbness??denies.? Neurologic Difficulty swallowing??yes.??Balance difficulty??denies.??Coordination??normal.? Difficulty speaking??yes.??Dizziness??denies.??Fainting??denies.??Gait abnormality??yes.??Headache??denies.? Loss of strength??denies.??Loss of use of extremity??denies.??Low back pain??denies.?? Memory loss??yes.??Seizures??denies.??Tics??denies.??Tingling/Numbness??Both feet .??Transient loss of vision??denies.??Tremor??denies.? Psychiatric Anxiety??denies.??Auditory/visual hallucinations??denies.??Delusions??caron es.??Depressed mood??denies.??Stressors??denies.??Substance abuse??denies.??Suicidal thoughts??denies. Physical Exam Neuro Other: Abnormal neurological findings: expressive dysphasia. absent ankle reflexes. Blunting of pin prick and vibration below mid tarsal level.? Mental Status:?alert and oriented X 3,?Normal attention, orientation, memory and affect.? Cranial Nerves:?Pupils are equal, round and reactive to light. Fundoscopy shows normal disc bilaterally. External ocular muscles are intact. Visual cherry are full, no ptosis. Face is symmetrical, no facial weakness or droop. Facial sensations are normal. Tongue protrudes in midline. Palate elevates symmetrically. Shoulder shrugging is normal..? Motor Examination:?Normal muscle tone, bulk and strength,?No atrophy or fasciculations,?No drift of the extended upper extremities,?Deep tendon reflexes are 2+ with absent ankle reflexes?,?Plantars are flexor?.? Motor Strength:? Proximal Muscles (out of 5):?5 Distal Muscles (out of 5):?5 Neck Flexors (out of 5):?5 Neck Extensors (out of 5):?5 Deltoid (out of 5):?5 Biceps (out of 5):?5 Triceps (out of 5):?5 Serratus Anterior (out of 5):?5 Wrist Extensors (out of 5):?5 APB (out of 5):?5 Finger Spread (out of 5):?5 Ileopsoas (out of 5):?5 Quadriceps (out of 5):?5 Hamstrings (out of 5):?5 Tibialis Anterior (out of 5):?5 Peronei (out of 5):?5 EDB (out of 5):?5 Gastrocnemius (out of 5):?5 Straight Leg Raising:?90 degrees.? Sensory Exam:?as above : disal sensory impairment in feet . UE Normal light touch, temperature, pinprick, vibration and joint-position sensations?,?Rhomberg sign is absent.? Coordination:?no ataxia,?no titubation,?nqvknb-sp-imgk, tbhc-vmgl-qbmb test and rapid alternating movements were normal.? Gait Exam:?Within normal limits.? Cerebellar Signs:?Hkxmre-wu-hebk and yjpk-uh-jjrg is normal,?no dysdiadochokinesia?.? Extrapyramidal System:?No tremor, rigidity with normal facial expressions,?No bradykinesia, no bradyphrenia. Normal arm swing and posture. No propulsion or retropulsion.? Speech:?Normal,?no dysphasia or dysarthria.. Mini Mental Status Exam Level of Consciousness:?Alert.? Orientation:?Knows correct year, month, date, day and season,?Knows correct city, county and state. Knows correct location and floor.? Registration:?Able to register 3 objects.? Attention:?Serial 7's performed accurately.? Recall:?Able to recall 3 out of 3 objects.? Language:?Normal spontaneous speech, fluency, repetition, ,naming, comprehension, reading and writing.? Total Score:?. Assessment & Plan Assessment & Plan (1) Cerebrovascular accident: Code(s): I63.9 - Cerebral infarction, unspecified Category: Medical (2) Diabetic neuropathy: Code(s): E11.40 - Type 2 diabetes mellitus with diabetic neuropathy, unspecified Category: Medical (3) Diabetes mellitus type 2 with neurological manifestations: Code(s): E11.49 - Type 2 diabetes mellitus with other diabetic neurological complication Category: Medical Plan Continue OT/ PT and speech therapy . Control of DM and HBP Nerve conduction / EMG of LE Orders: Orders NE nerve conduction velocity Today E11.40 - Type 2 diabetes mellitus with diabetic neuropathy, unspecified NE electromyogram (EMG) Today E11.40 - Type 2 diabetes mellitus with diabetic neuropathy, unspecified Medications: New pregabalin 75 mg orally at HS for 2 wks then 1 bid; 60 caps 3RF Coding Level of Care Code New Pt Level 5 (00954) Diagnoses Cerebrovascular accident I63.9 Diabetic neuropathy E11.40 Diabetes mellitus type 2 with neurological manifestations E11.49
--- OUTSIDE RECORDS SUMMARY | 2025-02-06 16:04 | XMS_ITS | Data Portability ---
Author Organization [facility], [facility] Address [address] [place] [address] Care Team Providers Care Quarantine Officer Name Role Phone HIM CCA OTHER GIO GARDINER Primary Care Provider Assessment Encounter Date Assessment Date Assessment LastModified by Organization Details LastModified Time 01/24/2025 01/24/2025 Ms. Ayden Kwok with Hyperlipidemia, Hypertension, Diabetes Mellitus Type 2, Stroke who is calling today about R ear pain. Per patient and medic, has bilateral ear pain, but worse on the R side. Slight tenderness on the outside. No redness appreciated with medic. Denies any other sinus congestion or cough or cold sx. No fever or chills. Otherwise eating well. Does have poor dentition, but not complaining of dental pain. Went to the dentist recently. Is supposed to get dental work done. No facial swelling. Just finished amoxicillin in r/t recent ear infection and stroke. States that sx initially improved with abx. Dental procedure is on hold 2/2 recent stroke. Until February 15. At this time, it appears it's probably more dental related pain. No obvious or acute signs of otitis media or otitis externa. Glucose has been wnl for patient. Counseled in risks of amoxicillin again and having more definitive management with dental procedures. Including risks of C diff. Advised to expedite dental procedure. No s/sx of periapical abscess on exam. Patient's daughter prefers to hold on abx as well. I provided real -time medical direction via phone for this encounter, and was available for additional phone based assistance as needed. I have reviewed and agree with the Assessment and Plan as documented by the Customs Entry Writer. We discussed the diagnostic uncertainty of home visits and the risk associated with this. In this case the patient and I felt this to be an acceptable and reasonable amount of risk given the benefit of avoiding an ED visit. The patient given the opportunity to ask questions. Follow up with primary care was recommended, as needed. Advised if develops CP/severe SOB/turning blue/uncontrolle d n/v/d or black/bloody emesis or stool/ AMS/ syncope/ high fever unresponsive to APAP to call 911- verbalized understanding of instruction. [email or web address] Not available 01/24/2025 18:40:14 Plan of Treatment Reminders Order Date Submit Date Provider Last Modified By Organization Details Last Modified Time Details Appointments None record ed. Lab None record ed. Referral None record ed. Procedures None record ed. Surgeries None record ed. Imaging None record ed. Medication Orders None record ed. Patient TargetsNo targets recorded. Patient InstructionsNo instructions recorded. Reason for Referral None Reported. Medical Equipment None Reported. Allergies No known drug allergies Medications Name Sig Start Date Stop Date Status Note LastModified by Organization Details LastModified Time atorvastatin 40 mg tablet TAKE 1 TABLET BY MOUTH EVERYDAY AT BEDTIME active Not Available Not Available No t Available cetirizine 10 mg tablet TAKE 1 TABLET BY MOUTH 1 TIME EACH DAY. active Not Available Not Available No t Available FreeStyle Lancets 28 gauge USE 4 TIMES A DAY: BEFORE MEALS AND AT BEDTIME active Not Available Not Available N ot Available aspirin 81 mg tablet,delay ed release TAKE 1 TABLET BY MOUTH EVERY DAY active Not Available Not Available No t Available ketorolac 10 mg tablet TAKE 1 TABLET BY MOUTH EVERY 8 HOURS NEEDED FOR PAIN DON'T MIX WITH IBUPROFEN OR ANY OTHER NSAIDS active Not Available Not Available No t Available amoxicillin 500 mg-potassium clavulanate 125 mg tablet TAKE 1 TABLET BY MOUTH 3 TIMES A DAY FOR 10 DAYS active Not Available Not Available Not Available insulin lispro (U-100) 100 unit/mL subcutaneous pen PLEASE SEE ATTACHED FOR DETAILED DIRECTIONS active Not Available Not Available N ot Available Alcohol Prep Pads APPLY 1 PAD TOPICALLY 4 TIMES A DAY BEFORE MEAL/BED active Not Available Not Available No t Available pregabalin 150 mg capsule TAKE 1 CAPSULE (150 MG TOTAL) BY MOUTH AT BEDTIME. MAX DAILY AMOUNT: 150 MG active Not Available Not Available No t Available BD Ultra-Fine Short Pen Needle 31 gauge x 5/16 USE 4 TIMES A DAY: BEFORE MEALS AND AT BEDTIME. active Not Available Not Available Not Available FreeStyle Lite Meter kit USE DIRECTED active Not Available Not Available No t Available FreeStyle Lite Strips USE TO TEST 4 TIMES DAILY active Not Available Not Available No t Available insulin glargine-yfg n (U-100) 100 unit/mL (3 mL) subcutaneous pen INJECT 10 UNITS SUBCUTANEOU SLY EVERY MORNING active Not Available Not Available No t Available Vitals Date Recorded Body height Body weight Oxygen saturation Oxygen saturation in Arterial blood by Pulse oximetry Body temperature Respiratory rate Heart rate Systolic blood pressure Diastolic blood pressure Provider Name and Address Organization Details Last Updated DateTime 5 157.48 cm 34361.8 g 98 % 98 % 98.6 [degF] 14 /min 93 /min 122 mm[Hg] 78 mm[Hg] Not Available [facility] - production 5 18:30:23 Social History None recorded. Functional Status None recorded. Mental Status None recorded. Family History Nothing Reported. Medical History No medical history recorded. Gynecological HistoryNo gynecological history recorded. Obstetrics History GPAL:G 0 P 0 0 0 0 Past Encounters Encounter ID Performer Location Encounter Start Date Encounter Closed Date Diagnosis/Indication Diagnosis SNOMED-CT Code Diagnosis ICD10 Code Diagnosis Note [id number] CAMILLE BARRY MD [facility] [address] 01/24/2025 18:30:18 01/24/2025 21:25:26 Toothache 73564972 K08.89 Health Concerns Section Related Observation LastModified by Organization Detai ls LastModified Time None Recorded Concern Status LastModified by Organization Details LastModified Time None Recorded Advance Directives Directive None Recorded Payers Insurance Date Sequence Insurance Name Policy Number Policy Braun Covered Member ID Braun Member ID Guarantor Name 01/24/[address] [facility] - DOS ON OR AFTER 2022 - DUAL ELIGIBLE - [employer] OPTIONS AND ONE CARE (MEDICARE REPLACEMENT/AD VANTAGE - HMO) Annalise Kwok [id number] Annalise Kwok Notes Date Note Type Note Provider Name and Address Organization Details Recorded Time 01/24/2025 text/html [facility] Nurse Triage Notes (Milana Chavez - RN): Reason For Request: Pt is complaining of right ear pain Denies: Sudden onset of dental pain, unable to manage own secretions Nosebleed lasting longer than one hour; unable to stop bleeding Throat swelling/difficult swallowing Chief Complaints: Ear Complaint PMH: Hyperlipidemia, Hypertension, Diabetes Mellitus Type 2, Stroke PMH Reviewed at 01/24/2025:43 Allergies Reviewed at 01/24/2025:43 Comments: 69 y.o female complains of Ear Complaint Patients daughter calling in to place a referral. Patient with a 2-3 day history of right ear pain and ringing- she reports dizziness yesterday, none today, denies headache, no nausea, no fever/chills, denies any drainage. Daughter thinks the area around her ear may be reddened and swollen, but the external ear is not red, swollen or warm to touch. Patient would like to be evaluated. I provided information on the mobile health provider response time and advised the patient and/or caregiver to monitor reported signs and symptoms. I discussed the warning signs of when to seek emergency care. ................... ................... ................... ................... ................... ................... ................... ........ Customs Entry Writer Note From Ricky Hackett: Patient alert and oriented, complains of bilateral ear pain, right more than left. Patient also reports decreased hearing. Patient s daughter reports patient had ear infection and was on Augmentin last month, was pain-free time seven days after, started again 3 days ago. Patient denies any other pain or complaints, denies tooth, pain, jaw, pain, sinus, congestion, sore throat, or any recent cough. Patient denies fever, chills, nausea, vomiting, diarrhea, weakness, dizziness, or any other pain or complaints. Patient pink warm dry, secondary exam unremarkable, some tenderness between ears and eyes, bilateral. No swelling or discharge noted to outer ear. missing teeth noted, no obvious swelling or bleeding of gums. Negative increased work of breathing, positive full sentences, abdomen, soft, nontender, extremities, unremarkable. [facility] discusses this case with patient, caregiver and [facility] decide antibiotics are not necessary. Patient will follow up with her PCP at appointment in February. Red flags, including signs of systemic infection or worsening pain reviewed, patient education discussed. Patient caregiver demonstrates understanding of care and plan. ................... ................... ................... ................... ................... ................... ................... ........ [facility] Consulted: Camille Barry ................... ................... ................... ................... ................... ................... ................... ........ Disposition: Fulfilled CAMILLE BARRY MD [address] [place] [address],[address], [place], [address], [employer] 01/24/2025 19:30:16 OBGyn Episode No OBEpisode recorded.
--- OUTSIDE RECORDS SUMMARY | 2025-02-06 16:04 | XMS_ITS | Encounter Summary ---
Author Organization [facility] Address [address] [place] [address] Encounters * CPT with Migue Fair at [employer] on 2025-01-24 { reasonForRequest : Pt is complaining of right ear pain , patientReports&q uot;: , denies :[ Sudden onset of dental pain, unable to manage own secret ions , Nosebleed lasting longer than one hour; unable to stop bleeding , Throat swelling/difficult swallowing ], chiefComplaints : Ear Complaint , pmh : Hyperlipidemia, Hypertension, Diabetes Mellitus Type 2, Stroke , allergies&qu ot;: No Known Drug Allergies , otherAllergies : , painAssessment : , visitOutcome : , additionalComments : 69 y.o female complains of Ear Complaint\n\nPatients daughter calling in to place a referral.\nPatient with a 2-3 day history of right ear pain and ringing- she reports dizziness yesterday, none today, denies headache, no nausea, no fever/chills, denies any drainage.\nDaughter thinks the area around herear may be reddened and swollen, but the external ear is not red, swollen or warm to touch.\nPatient would like to be evaluated.\n\nI provided information on the mobile health provider response time and advised the patient and/or caregiver to monitor reported signs and symptoms. I discussed the warning signs of when to seek emergency care. } Patient alert and oriented, complains of bilateral ear pain, right more than left. Patient also reports decreased hearing. Patient???s daughter reports patient had ear infection and was on Augmentin last month, was pain-free time seven days after, started again 3 days ago. Patient denies any other pain or complaints, denies tooth, pain, jaw, pain, sinus, congestion, sore throat, or any recent cough. Patient denies fever, chills, nausea, vomiting, diarrhea, weakness, dizziness, or any other painor complaints. Patient pink warm dry, secondary exam unremarkable, some tenderness between ears and eyes, bilateral. No swelling or discharge noted to outer ear. missing teeth noted, no obvious swelling or bleedingof gums. Negative increased work of breathing, positive full sentences, abdomen, soft, nontender, extremities, unremarkable. C discusses this case with patient, caregiver and C decide antibiotics are not necessary. Patient will follow up with her PCP at appointment in February. Red flags, including signs of systemic infection or worsening pain reviewed, patient education discussed. Patient caregiver demonstrates understanding of care and plan. IV_(FLUIDS_AND/OR_MEDICATION), MEDICATION_IM, ORAL_MEDICATION, POC_BLOODWORK Written by Migue Fair on 2025-01-24
== END 2025-02-06 16:01 | disposition home or self-care (01) ==
LOC: HO.HSM 15:15
PROVIDERS: PCP Internal Medicine; Visit Provider Psychiatry & Neurology Neurology
DX: I63.9 Cerebral infarction, unspecified (principal); E11.40 Type 2 diabetes mellitus with diabetic neuropathy, unspecified; E11.49 Type 2 diabetes mellitus with other diabetic neurological complication
CPT/HCPCS: 99214

== ENCOUNTER → 2025-02-06 15:14 | Outpatient (BNVA) | payer OTHER, SELFPAY | PROVIDERS: PCP Internal Medicine; Visit Provider Psychiatry & Neurology Neurology | DX: E11.49 Type 2 diabetes mellitus with other diabetic neurological complication (principal); I63.9 Cerebral infarction, unspecified; E11.40 Type 2 diabetes mellitus with diabetic neuropathy, unspecified | CPT/HCPCS: 99212 ==

== ENCOUNTER 2025-03-19 14:43 | Outpatient (AMB) | payer OTHER, SELFPAY ==
--- NOTE | 2025-03-19 14:50 | MHC.OFFVIS ---
Intake Visit Reasons: EVAL FOR COGNITIVE ISSUES Accompanied by: Daughter Allergies carisoprodol Allergy (Verified 03/19/25 14:54) Unknown ethinyl estradiol (From Seasonale (91)) Allergy (Verified 03/19/25 14:54) Unknown Medication List - Last Reconciled 03/19/25 by Rosario Kauffman CNP amlodipine 2.5 mg PO DAILY aspirin 81 mg PO DAILY atorvastatin 40 mg PO BEDTIME blood sugar diagnostic (FreeStyle Lite Strips) QID blood-glucose meter (FreeStyle Lite Meter kit) As directed cetirizine 10 mg PO DAILY PRN insulin glargine 10 units (0.1 mL) subcut QAM insulin lispro (Humalog KwikPen (U-100) Insulin) See Protocol sliding scale doses subcut QIDACHS lancets (FreeStyle Lancets) QIDACH lisinopril 10 mg PO DAILY loperamide-simethicone 2-125 mg (Imodium Multi-Symptom Relief) 2 tabs PO DAILY pen needle, diabetic (Pen Needle) QIDACH pregabalin 75 mg orally at HS for 2 wks then 1 bid; sitagliptin phos-metformin 50-1,000 mg (Janumet) 1 tab PO BID HPI Comments Details: 69 years old woman with h/o alcohol use disorder in the past, diabetes for 15+ yrs, who had stopped her meds for 3-4 yrs, with elevated blood sugar out of control, who moved to [facility] around 11/2024 from [place], and presented to [facility] on 12/31/24 with sudden onset right sided weakness and slurred speech. In ED, a CT/CTA were done showing no hemodynamically significant narrowing of bilateral carotids of about 60%. 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 Walking, speech, and eating has improved. She was complaining of bilateral prickly pain and numbness in her feet below the ankles that affected her sleep. She was now here with new concern of memory impairment. She was living with her daughter. Her daughter noticed decline in short-term memory while she was still living in [place]. She moved here in 11/2024. Short term memory and forgetfulness has gotten worse over the last few months. For example, she would forget if she took medication and daughter was now having to manage medications. She was also more repetitive, asking the same questions over and over. Sleep was okay. 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 [facility] Medical History (Updated 03/19/25 @ 15:15 by Rosario Kauffman CNP) Cerebrovascular accident Type 2 diabetes mellitus, controlled, with renal complications Hyperlipidemia Depression Diverticulitis of colon without hemorrhage Vitamin D deficiency Diabetic neuropathy Diabetes mellitus type 2 with neurological manifestations Osteoporosis Right sided weakness Slurred speech Uncontrolled diabetes mellitus with hyperglycemia Family History (Updated 02/05/25 @ 18:18 by Pippa Brandon MA) Mother Hypertension Cancer Osteoporosis High cholesterol Father Prostate cancer Daughter Diabetes Social History (Updated 02/05/25 @ 18:17 by Pippa Brandon MA) Household Members: Family Housing: House Do you presently have visiting nurse or other home services: No Alcohol intake: former Patient Tobacco Use Status: Former Tobacco user e-Cigarette/Vaping Use: Never Used service: No Review of Systems Const Details: Sleep Difficulty getting to sleep??denies.??Difficulty maintaining sleep??denies?.??Urge to move legs??denies.?? Teeth grinding??denies.??Shouting or Kicking during sleep??denies.??Abnormal behavior during sleep??denies.?? Excessive sleep??denies.??Snoring??denies.??Daytime sleepiness??denies.? General/Constitutional Change in appetite??denies.??Chills??denies.??Fatigue??denies.??Fever??denies.??Weight gain??denies.??Weight loss??denies.? Respiratory Shortness of breath??yes.??Chest pain??denies.??Cough??denies.? Cardiovascular Chest pain at rest??denies.??Chest pain with exertion??denies.??Claudication??denies.??Dizziness??denies.??Fluid accumulation in the legs??denies.??Irregular heartbeat??denies.??Palpitations??denies.? Gastrointestinal Abdominal pain??denies.??Constipation??denies.??Diarrhea??denies.?? Difficulty swallowing??denies.??Heartburn??denies.??Nausea??denies.??Rectal bleeding??denies.? Genitourinary Frequent urination??denies.??Urgency??denies.??Incontinence??denies.??Erectile Dysfunction??denies.? Musculoskeletal Neck pain??denies.??Back pain??denies.??Muscle aches??denies.??Painful joints??denies.??Sciatica??denies.??Weakness??denies.? Neurologic Difficulty swallowing??yes.??Balance difficulty??denies.??Coordination??normal.? Difficulty speaking??yes.??Dizziness??denies.??Fainting??denies.??Gait abnormality??yes.??Headache??denies.? Loss of strength??denies.??Loss of use of extremity??denies.??Low back pain??denies.?? Memory loss??yes.??Seizures??denies.??Tics??denies.??Tingling/Numbness??Both feet .??Transient loss of vision??denies.??Tremor??denies.? Psychiatric Anxiety??denies.??Auditory/visual hallucinations??denies.??Delusions??denies.??Depressed mood??denies.??Stressors??denies.??Substance abuse??denies.??Suicidal thoughts??denies. Physical Exam Const Other: General Appearance:? normal, in no acute distress. Heart:? S1, S2 normal, no murmurs. Lungs:? clear anteriorly and posteriorly. Musculoskeletal:? normal. Extremities:? no edema. Psych:? alert, as below. Neuro Other: Abnormal Neurological Findings:?expressive dysphasia. absent ankle reflexes. Blunting of pin prick and vibration below mid tarsal level. Walking with walker. MMSE 21/30. Mental Status: alert, as below. Cranial Nerves: Pupils are equal, round, and reactive to light. External ocular muscles are intact. Visual cherry are full, no ptosis. Face is symmetrical, no facial weakness or droop. Facial sensations are normal. Tongue protrudes in midline. Palate elevates symmetrically. Shoulder shrugging is normal Motor Examination: As above, otherwise normal muscle tone, bulk and strength. No atrophy or fasciculations. No drift of the extended upper extremities. DTR 2+ with absent ankle reflexes. Plantars are flexor. Sensory Exam: As above. Coordination: No ataxia. No titubation. Gait Exam: With walker. Cerebellar Signs: [id number] is okay. Extrapyramidal System: No tremor, rigidity with normal facial expressions. No bradykinesia. No bradyphrenia. Normal arm swing and posture. No propulsion or retropulsion. Speech: As above. MMSE Level of Consciousness: Alert. Orientation: Knows correct year, month, day and season. Does not know date. Knows correct city, county and state. Knows correct location. Does not know floor. Registration: Able to register 3 objects. Attention: Unable to do. Recall: Able to recall 1 out of 3 objects. Language: Normal spontaneous speech, fluency, repetition, naming, comprehension, reading, and writing. Total Score: 21/30. Results Reviewed Results Reviewed: Laboratory Tests 01/03/25 08:17 WBC 11.7 H RBC 4.18 L Hgb 12.1 Hct 36.5 L MCV 87.3 MCH 28.9 MCHC 33.2 RDW 11.9 Plt Count 393 MPV 9.8 Immature Gran % (Auto) 0.9 H Neut % (Auto) 61.8 Lymph % (Auto) 26.9 Rains % (Auto) 8.4 Eos % (Auto) 1.5 Baso % (Auto) 0.5 Lymph # (Auto) 3.2 Rains # (Auto) 1.0 Eos # (Auto) 0.2 Baso # (Auto) 0.1 Abs Immat Gran (auto) 0.11 H Absolute Neuts (auto) 7.2 Absolute Nucleated RBC 0.000 Nucleated RBC % (auto) 0.0 Sodium 138 Potassium 3.4 Chloride 103 Carbon Dioxide 26 Anion Gap 12 BUN 4 L Creatinine 0.61 Estim Creat Clear Calc 68.4 Estimated GFR > 60 Random Glucose 206 H Calcium 9.5 Total Bilirubin 0.7 AST 20 ALT 14 Alkaline Phosphatase 69 Total Protein 7.0 Albumin [address] [address] Magnetic Resonance Report Signed with Addenda Patient: Annalise Melendez MR#: [id number] : 1955 Acct:[id number] Age/Sex: 69 / F ADM Date: 01/02/25 [facility]: Andrew Lockhart MD Ordering Physician: Andrew Lockhart MD Date of Service: 01/02/25 Procedure(s): MR head/brain wo con Accession Number(s): [id number] cc: nAdrew Lockhart MD; Stone Wiley III, MD~ ADDENDUMThis document has been electronically signed by: Raheem Ferrer MD on 01/02/2025 20:07:33 ADDENDUM: This report was discussed with Dr. Ventura on January 02, 2025 20:23:00 EDT. This document has been electronically signed by: Amparo Rodriguez on 01/02/2025 20:23:26 Addendum Dictated By: Raheem Ferrer MD Addendum Signed By: <Electronically signed by Raheem Ferrer MD in OV> 01/02/252023 Addendum Cosigned By: DD/ TD/TT: 01/02/25 CLINICAL HISTORY: Slurred speech, Right sided weakness MR Brain without gadolinium Comparison: CT/[place]/SR - CT ANGIO HEAD NECK STROKE - 01/02/25 14:[address]/[place] - CT ANGIO HEAD NECK STROKE - 01/02/25 14:[address]/[place]/SR - CT HEAD FOR STROKE - 01/02/25 14:19 EDT Findings: There is a focal ovoid area of diffusion restriction measuring 6 x 3 mm in the superior portion of the left basal ganglia, series 6, image 15. There is an ovoid T2 hyperintensity in the left basal ganglia, And a smaller lesion in the right thalamus consistent with old lacunar infarcts. No intra-axial mass or hemorrhage. Extensive T2 and FLAIR hyperintensity in the subcortical and periventricular white matter. No midline shift. No hydrocephalus. Vascular flow voids are intact. Orbital contents are unremarkable. Mucosal thickening of the right maxillary sinus. There is a large left mastoid effusion There are multifocal areas of fatty marrow replacement in the calvarium. IMPRESSION: 1. Acute nonhemorrhagic lacunar infarct in the left basal ganglia. 2. Extensive white matter disease in the subcortical and periventricular regions which could be compatible with chronic small-vessel ischemic gliosis. 3. Old lacunar infarcts in the right thalamus and left basal ganglia. This document has been electronically signed by: Raheem Ferrer MD on 01/02/2025 20:07:33 Assessment & Plan Assessment & Plan (1) MCI (mild cognitive impairment): Code(s): G31.84 - Mild cognitive impairment of uncertain or unknown etiology Category: Medical Plan: Previous labs and MRI results reviewed. Reviewed testing ordered, labs and EEG. Start donepezil 5mg 1 tablet at bedtime, use/side effects reviewed. (2) Diabetic neuropathy: Code(s): E11.40 - Type 2 diabetes mellitus with diabetic neuropathy, unspecified Category: Medical Qualifiers: Diabetes mellitus type: type 2 Diabetes mellitus complication detail: diabetic polyneuropathy Qualified Code(s): E11.42 - Type 2 diabetes mellitus with diabetic polyneuropathy Plan: She did not have NCV/EMG done yet, scheduled for 03/21/2025. (3) History of stroke: Code(s): Z86.73 - Personal history of transient ischemic attack (TIA), and cerebral infarction without residual deficits Category: Medical Plan . Orders: Orders TSH reflex Free T4 Today G31.84 - Mild cognitive impairment of uncertain or unknown etiology EEG electroencephalogram Today G31.84 - Mild cognitive impairment of uncertain or unknown etiology Vitamin B12 and Folate Today G31.84 - Mild cognitive impairment of uncertain or unknown etiology Medications: New donepezil 5 mg PO BEDTIME 30 tabs 3RF 30 days Coding Level of Care Code Est Pt Level 4 (98873) Diagnoses MCI (mild cognitive impairment) G31.84 Diabetic polyneuropathy associated with type 2 diabetes mellitus E11.42 Diabetes mellitus type: type 2 Diabetes mellitus complication detail: diabetic polyneuropathy History of stroke Z86.73
--- OUTSIDE RECORDS SUMMARY | 2025-03-19 15:08 | XMS_ITS | Encounter Summary ---
Author Organization [facility] Address [address] [place] [address] Care Team Providers Care County Director Welfare Name Role Phone Stone Wiley MD Primary Care Provider [phone] Reason for Visit * Reason Onset Date Comments Medication 02/15/2025 Encounter Details Date Type Department Care Team ([facility] st Contact Info) Description 02/15/2025 Telephone Adult Medicine [address] [phone] Stone Wiley MD [address] [place] [id number] Medication Social History Tobacco Use Types Packs/Day Years Used Date Smoking Tobacco: Former Cigarettes 0.2 40.5 0 08/09/1972 - 01/26/2013 Smokeless Tobacco: Never Alcohol Use Standard Drinks/Week Comments Not Currently 0 (1 standard drink = 0.6 oz pur e alcohol) Comments Unknown Sex and Gender Information Value Date Recorded Sex Assigned at Not on file Legal Sex Female 10:52 PM EST Gender Identity Not on file Sexual Orientation Not on file documented as of this encounter Progress Notes * Yadira Kwok MA - 03/08/2025 8:57 AM EDT Spoke with daughter and she will call endo and reschedule appointment with Endo. * Stone Wiley MD - 03/07/2025 1:49 PM EDT I would have endocrine address this, pt does follow with endo however she did no show an appointment 02/26/2025 please have patient reschedule and then the cgm can be addressed * Analia Wright MA - 02/27/2025 3:15 PM EDT Is this something you can prescribe? or do they need referral to Endo for this? * Jesus Vasquez - 02/20/2025 1:34 PM EDT Patient is requesting a CGM (Continuous Glucose Monitor) for the arm. The patient stated that during the OV dated 02/15/25 with Rae, they have discussed about receiving CGM so that the patient does not have to get poked every day, 6 times daily. And if it is possible to receive CGM for the patient, they requested to have it sent to [employer] fax number [phone]. * Maribell Mratin - 02/16/2025 11:55 AM EDT [facility] Niloo-Pharmacist [phone] Confidential voicemail. Patient on medication not on med list. Needs clarification, out of Janumet can't send. Can patient go without until Saurabh returns back to the office? * Analia Wright MA - 02/16/2025 11:19 AM EDT Current med list faxed to [email or web address]. * Johana Padilla - 02/16/2025 10:14 AM EDT [facility] calling again * Maribell Morejon Veronica - 02/15/2025 2:59 PM EDT Please fax over medication list documented in this encounter Plan of Treatment Upcoming Encounters Date Type Department Care Team (Late st Contact Info) Description 03/28/2025 4:00 PM EDT Office Visit Endocrinology [address] [phone] Eileen Kwok PA [address] [place] [address] 04/16/2025 1:45 PM EDT Office Visit Orthopedic Surgery [facility] [address] [facility] [address] [place] [phone] Zion Vazquez DPM [address] [facility] [address] [place] [address] 05/11/2025 11:00 AM EDT Appointment [facility] [address] [place] [phone] Timmy Viera MD [address] [facility] [address] [place] [address] 05/31/2025 9:45 AM EDT Office Visit Adult Medicine [address] [phone] Hany Falk PA [address] [place] [address] 11/29/2025 9:45 AM EDT Office Visit Adult Medicine [address] [phone] Stone Wiley MD [address] [place] [address] documented as of this encounter Visit Diagnoses Not on filedocumented in this encounter Care Teams County Director Welfare Relationship Specialty Start Date End Date Stone Wiley MD [address] [place] [address] PCP - General Internal Medicine 06/06/21 documented as of this encounter
== END 2025-03-19 15:29 | disposition home or self-care (01) ==
LOC: HO.HSM 14:44
PROVIDERS: PCP Internal Medicine; Visit Provider Registered Nurse
DX: G31.84 Mild cognitive impairment of uncertain or unknown etiology (principal); E11.42 Type 2 diabetes mellitus with diabetic polyneuropathy; Z86.73 Personal history of transient ischemic attack (TIA), and cerebral infarction without residual deficits
CPT/HCPCS: 99214

== ENCOUNTER 2025-03-19 14:43 | Outpatient (REF) | payer OTHER, SELFPAY ==
[2025-03-19 17:06] LABS: Folate 15.6 ng/mL (> or = 4.0); Vitamin B12 868 pg/mL (200-900)
== END 2025-03-19 14:44 | disposition home or self-care (01) ==
LOC: HO.LAB 14:43
PROVIDERS: PCP Internal Medicine; Visit Provider Registered Nurse
DX: G31.84 Mild cognitive impairment of uncertain or unknown etiology (principal); E11.42 Type 2 diabetes mellitus with diabetic polyneuropathy; R47.81 Slurred speech; R53.1 Weakness; Z86.73 Personal history of transient ischemic attack (TIA), and cerebral infarction without residual deficits; Z87.891 Personal history of nicotine dependence
CPT/HCPCS: 36415; 82607; 82746; 84443; 99212

== ENCOUNTER 2025-03-27 13:08 | Outpatient (REF) | payer OTHER, SELFPAY ==
--- NOTE | 2025-03-27 13:19 | EMG_ITS ---
Impression: Mild, sensory greater than motor, primarily demyelinating neuropathy in the lower extremities. Normal EMG in the right L4-S1 innervated muscles. Please see detailed neurophysiological report MTDD
--- NOTE | 2025-03-27 13:19 | EEG_ITS ---
The waking background activity consists of a poorly organized 7-8 hertz diffuse frequency intermixed with low-voltage fast frequencies anteriorly. Intermittent delta slowing are seen from the frontotemporal regions at moderate to high voltage at 3 hertz. Photic stimulation is without activation. Hyperventilation was omitted. No paroxysmal features are noted No sleep stages are identified Impression: This EEG is considered abnormal due to scattered background slowing and disorganization with intermittent bifrontal delta slowing consistent with a diffuse encephalopathic process or a neurodegenerative disorder. Clinical correlation is suggested. MTDD
--- OUTSIDE RECORDS SUMMARY | 2025-03-27 14:18 | XMS_ITS | Encounter Summary ---
Author Organization [facility] Address [address] [place] [address] Care Team Providers Care Census Clerk Name Role Phone Stone Wiley MD Primary Care Provider [phone] Reason for Visit * Reason Onset Date Comments faxed order 03/01/2025 Maynor HOANG orde r [id number] Encounter Details Date Type Department Care Team ([facility] Contact Info) Description 03/01/2025 Telephone Adult Medicine [facility] [address] [place] [phone] Stone Wiley MD [address] [place] [phone] faxed order (Maynor DENNISA order [id number]) Social History Tobacco Use Types Packs/Day Years [...] as of this encounter Progress Notes * Briana Ho - 03/01/2025 9:29 AM EDT Maynor SarbariA order [id number] received please sign and fax to [phone] documented in this encounter Plan of Treatment Upcoming Encounters Date Type Department Care Team (Late st Contact Info) Description 03/28/2025 4:00 PM EDT Office Visit Endocrinology [address] [phone] Eileen Kwok PA [address] [place] [address] 04/16/2025 1:45 PM EDT Office Visit Orthopedic Surgery - [place] [address] [facility] [address] [place] [phone] Zion Vazquez, DPJack [address] [address] 05/11/2025 11:00 AM EDT Appointment [facility] [address] [place] [phone] Timmy Viera MD [facility] [address] [place] [address] 05/31/2025 9:45 AM EDT Office Visit Adult Medicine [address] [phone] Hany Falk PA [address] [place] [address] 11/29/2025 9:45 AM EDT Office Visit Adult Medicine [address] [phone] Stone Wiley MD [address] [place] [address] documented as of this encounter Visit Diagnoses Not on filedocumented in this encounter Care Teams Census Clerk Relationship Specialty Start Date End Date Stone Wiley MD [address] [place] [address] PCP - General Internal Medicine 06/06/21 documented as of this encounter
== END 2025-03-27 13:09 | disposition home or self-care (01) ==
LOC: HO.NEURO 13:08
PROVIDERS: PCP Internal Medicine; Visit Provider Psychiatry & Neurology Neurology
DX: E11.40 Type 2 diabetes mellitus with diabetic neuropathy, unspecified (principal); G31.84 Mild cognitive impairment of uncertain or unknown etiology; R94.01 Abnormal electroencephalogram [EEG]
CPT/HCPCS: 95816; 95885; 95911

== ENCOUNTER → 2025-03-27 13:19 | Outpatient (BNV) | payer OTHER, SELFPAY | PROVIDERS: PCP Internal Medicine; Visit Provider Psychiatry & Neurology Neurology | DX: R94.01 Abnormal electroencephalogram [EEG] (principal); E11.42 Type 2 diabetes mellitus with diabetic polyneuropathy | CPT/HCPCS: 95816; 95886; 95911 ==

== ENCOUNTER 2025-05-01 10:17 | Outpatient (AMB) | payer OTHER, SELFPAY ==
--- NOTE | 2025-05-01 10:27 | MHC.OFFVIS ---
Intake Visit Reasons: 2m stroke Allergies carisoprodol Allergy (Verified 03/19/25 14:54) Unknown ethinyl estradiol (From [facility]ale (91)) Allergy (Verified 03/19/25 14:54) Unknown Medication List - Last Reconciled 05/01/25 by Hitesh Sebastian MD amlodipine 2.5 mg PO DAILY aspirin 81 mg PO DAILY atorvastatin 40 mg PO BEDTIME blood sugar diagnostic (FreeStyle Lite Strips) QID blood-glucose meter (FreeStyle Lite Meter kit) As directed cetirizine 10 mg PO DAILY PRN donepezil 5 mg PO BEDTIME 90 days dulaglutide (Trulicity) 0.75 mg subcut QWEEK insulin lispro (Humalog KwikPen (U-100) Insulin) See Protocol sliding scale doses subcut QIDACHS lancets (FreeStyle Lancets) QIDACH lisinopril 10 mg PO DAILY loperamide-simethicone 2-125 mg (Imodium Multi-Symptom Relief) 2 tabs PO DAILY pen needle, diabetic (Pen Needle) QIDACH HPI Comments Details: 69 years old woman with h/o alcohol use disorder in the past, diabetes for 15+ yrs, who had stopped her meds for 3-4 yrs, with elevated blood sugar out of control, who [place] this area around 11/2024 [place], and presented to [facility] on 12/31/24 with sudden onset right sided weakness and slurred speech. In ED, a CT/CTA were done showing hemodynamically insignificant narrowing of bilateral carotids of about 60%. 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 Walking, speech, and eating has improved. She was complaining of bilateral prickly pain and numbness in her feet below the ankles that affected her sleep. She is better and is now walking around the house with contact guidance. Daughter was concerned about of memory impairment which ahs not changed since the last visit. Some confusion about time and people. She was living with her daughter. Her daughter noticed decline in short-term memory while she was still living in [place]. She moved here in 11/2024. Short term memory and forgetfulness has gotten worse over the last few months. For example, she would forget if she took medication and daughter was now having to manage medications. She was also more repetitive, asking the same questions over and over. Sleep was okay. 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 [facility] Medical History (Updated 05/01/25 @ 10:48 by Hitesh Sebastian MD) Cerebrovascular accident Type 2 diabetes mellitus, controlled, with renal complications Hyperlipidemia Depression Diverticulitis of colon without hemorrhage Vitamin D deficiency Diabetic neuropathy Diabetes mellitus type 2 with neurological manifestations Osteoporosis Right sided weakness Slurred speech Uncontrolled diabetes mellitus with hyperglycemia Family History (Updated 02/05/25 @ 18:18 by Pippa Brandon MA) Mother Hypertension Cancer Osteoporosis High cholesterol Father Prostate cancer Daughter Diabetes Social History (Updated 02/05/25 @ 18:17 by Pippa Brandon MA) Household Members: Family Housing: House Do you presently have visiting nurse or other home services: No Alcohol intake: former Patient Tobacco Use Status: Former Tobacco user e-Cigarette/Vaping Use: Never Used service: No Review of Systems Const Details: Sleep Difficulty getting to sleep??denies.??Difficulty maintaining sleep??denies?.??Urge to move legs??denies.?? Teeth grinding??denies.??Shouting or Kicking during sleep??denies.??Abnormal behavior during sleep??denies.?? Excessive sleep??denies.??Snoring??denies.??Daytime sleepiness??denies.? General/Constitutional Change in appetite??denies.??Chills??denies.??Fatigue??denies.??Fever??denies.??Weight gain??denies.??Weight loss??denies.? Respiratory Shortness of breath??yes.??Chest pain??denies.??Cough??denies.? Cardiovascular Chest pain at rest??denies.??Chest pain with exertion??denies.??Claudication??denies.??Dizziness??denies.??Fluid accumulation in the legs??denies.??Irregular heartbeat??denies.??Palpitations??denies.? Gastrointestinal Abdominal pain??denies.??Constipation??denies.??Diarrhea??denies.?? Difficulty swallowing??denies.??Heartburn??denies.??Nausea??denies.??Rectal bleeding??denies.? Genitourinary Frequent urination??denies.??Urgency??denies.??Incontinence??denies.??Erectile Dysfunction??denies.? Musculoskeletal Neck pain??denies.??Back pain??denies.??Muscle aches??denies.??Painful joints??denies.??Sciatica??denies.??Weakness??denies.? Neurologic Difficulty swallowing??yes.??Balance difficulty??denies.??Coordination??normal.? Difficulty speaking??yes.??Dizziness??denies.??Fainting??denies.??Gait abnormality??yes.??Headache??denies.? Loss of strength??denies.??Loss of use of extremity??denies.??Low back pain??denies.?? Memory loss??yes.??Seizures??denies.??Tics??denies.??Tingling/Numbness??Both feet .??Transient loss of vision??denies.??Tremor??denies.? Psychiatric Anxiety??denies.??Auditory/visual hallucinations??denies.??Delusions??denies.??Depressed mood??denies.??Stressors??denies.??Substance abuse??denies.??Suicidal thoughts??denies. Physical Exam Const Other: General Appearance:? normal, in no acute distress. Heart:? S1, S2 normal, no murmurs. Lungs:? clear anteriorly and posteriorly. Musculoskeletal:? normal. Extremities:? no edema. Psych:? alert, as below. Neuro Other: Abnormal Neurological Findings:?expressive dysphasia. absent ankle reflexes. Blunting of pin prick and vibration below mid tarsal level. Walking with walker. MMSE 21/30. Mental Status: alert, as below. Cranial Nerves: Pupils are equal, round, and reactive to light. External ocular muscles are intact. Visual cherry are full, no ptosis. Face is symmetrical, no facial weakness or droop. Facial sensations are normal. Tongue protrudes in midline. Palate elevates symmetrically. Shoulder shrugging is normal Motor Examination: As above, otherwise normal muscle tone, bulk and strength. No atrophy or fasciculations. No drift of the extended upper extremities. DTR 2+ with absent ankle reflexes. Plantars are flexor. Sensory Exam: As above. Coordination: No ataxia. No titubation. Gait Exam: With walker. Cerebellar Signs: [id number] is okay. Extrapyramidal System: No tremor, rigidity with normal facial expressions. No bradykinesia. No bradyphrenia. Normal arm swing and posture. No propulsion or retropulsion. Speech: As above. MMSE Level of Consciousness: Alert. Orientation: Knows correct year, month, day and season. Does not know date. Knows correct city, county and state. Knows correct location. Does not know floor. Registration: Able to register 3 objects. Attention: Unable to do. Recall: Able to recall 1 out of 3 objects. Language: Normal spontaneous speech, fluency, repetition, naming, comprehension, reading, and writing. Total Score: 21/30. Results Reviewed Results Reviewed: 03/27/25 Mild, sensory greater than motor, primarily demyelinating neuropathy in the lower extremities. Normal EMG in the right L4-S1 innervated muscles. Assessment & Plan Assessment & Plan (1) MCI (mild cognitive impairment): Code(s): G31.84 - Mild cognitive impairment of uncertain or unknown etiology Category: Medical Plan: Previous labs and MRI results reviewed. Reviewed testing ordered, labs and EEG. Start donepezil 5mg 1 tablet at bedtime, use/side effects reviewed. (2) Diabetic neuropathy: Comment: Mild sensory demyelinative neuropathy on [facility] Mar 2025 Code(s): E11.40 - Type 2 diabetes mellitus with diabetic neuropathy, unspecified Category: Medical Qualifiers: Diabetes mellitus type: type 2 Diabetes mellitus complication detail: diabetic polyneuropathy Qualified Code(s): E11.42 - Type 2 diabetes mellitus with diabetic polyneuropathy (3) History of stroke: Code(s): Z86.73 - Personal history of transient ischemic attack (TIA), and cerebral infarction without residual deficits Category: Medical Plan . Medications: New donepezil 10 mg PO DAILY 30 tabs 8RF 30 days pregabalin 75 mg orally at HS for 2 wks then 1 bid; 60 caps 0RF Discontinued donepezil Discontinued Reason: Doctor's Order 5 mg PO BEDTIME 90 days 90 tabs 0RF Coding Level of Care Code Est Pt Level 4 (52559) Diagnoses MCI (mild cognitive impairment) G31.84 Diabetic polyneuropathy associated with type 2 diabetes mellitus E11.42 Diabetes mellitus type: type 2 Diabetes mellitus complication detail: diabetic polyneuropathy History of stroke Z86.73
--- OUTSIDE RECORDS SUMMARY | 2025-05-01 12:30 | XMS_ITS | Clinical Summary ---
Author Organization [facility] [address] [facility] Address [address] [place] [address] Phone Care Team Providers Care Financial Operations Clerk Name Role Phone Stone Wiley MD Primary Care Provider [phone] Allergies Active Allergy Reactions Criticality Noted Date Comments Carisoprodol 06/12/2021 Other Runny nose Medium 03/20/2013 Seasonal Medications UNABLE TO FIND Blood Glucose Calibration (OT ULTRA/FASTTK CNTRL SOLN) Solution E11.29 to use with glucometer 2 Active amLODIPine (NORVASC) 2.5 mg tablet Take 1 tablet (2.5 mg total) by mouth 1 (one) time each day. 90 tablet 1 5 Active aspirin 81 mg EC tablet Take 1 tablet (81 mg total) by mouth 1 (one) time each day. 90 tablet 1 5 Active atorvastatin (LIPITOR) 40 mg tablet Take 1 tablet (40 mg total) by mouth at bedtime. 90 tablet 1 5 Active blood-glucose meter kit use to test blood sugar daily. 1 each 5 Active cetirizine (ZyrTEC) 10 mg tablet Take 1 tablet (10 mg total) by mouth 1 (one) time each day. 90 tablet 1 5 Active fluticasone propionate (FLONASE) 50 mcg/actuation nasal spray Administer 2 sprays into each nostril 1 (one) time each day. Shake gently. Before first use, prime pump. After use, clean tip and replace cap. 16 g 5 Active lisinopriL (PRINIVIL,ZEST RIL) 10 mg tablet Take 1 tablet (10 mg total) by mouth 1 (one) time each day. 90 tablet 1 5 Active OneTouch Ultra Test test strip Used to check blood sugar 3 times daily. 300 each 5 Active OneTouch UltraSoft Lancets Use to test blood sugar 3 times daily 300 each 5 Active donepeziL (ARICEPT) 5 mg tablet Take 1 tablet (5 mg total) by mouth at bedtime. 5 Active metFORMIN XR (GLUCOPHAGE-XR ) 500 mg 24 hr tablet 2 tabs twice a day with meals 120 each 5 Active dulaglutide (Trulicity) 0.75 mg/0.5 mL pen injector injection Inject 0.5 mL (0.75 mg total) under the skin every 7 (seven) days. 2 mL 5 5 Active insulin glargine (Lantus Solostar U-100 Insulin) 100 unit/mL (3 mL) injection pen 14 units sc at bedtime 15 mL 5 Active bisacodyL (DULCOLAX) 5 mg EC tablet Take 2 tablets by mouth right before beginning bowel prep. See instructions provided by the office 2 tablet 5 Active polyethylene glycol (Golytely) 236-22.74-6.74 -5.86 gram solution Take 4L by mouth once for one dose. May substitue any PEG. Starting at 2PM the day before your procedure drink 1 8oz glasses at your own pace until you complete half of the gallon. Finish 2nd half of the gallon at 8PM. 4000 mL 5 Active insulin glargine (Lantus Solostar U-100 Insulin) 100 unit/mL (3 mL) injection pen 14 units sc at bedtime 15 mL 11 5 025 Discontin ued(Reord er) Active Problems Problem Noted Date Diagnosed Date Urinary incontinence 01/10/2025 Osteoporosis 06/12/2021 Diabetes mellitus type 2 wit h neurological manifestations ([facility] V24, [facility] V28) 10/23/2017 Diabetic neuropathy ([facility] V24, [facility] V28) 0 10/23/2017 Vitamin D deficiency 10/23/2017 Essential hypertension 04/08/2015 Diverticulitis of colon without hemorrhage 07/25 Overview (08/04/2024): Incidental finding at colonoscopy 07/25/2013. Depression 04/21/2013 Hyperlipidemia 04/21/2013 Type 2 diabetes mellitus, co ntrolled, with renal complications ([facility] V24, [facility] V28) 04/21/2013 Encounters Date Type Department Care Team Description 04/16/2025 2:15 PM EDT Office Visit Orthopedic Surgery - [address] [phone] Zion Vazquez, SAFIA Controlled type 2 diabetes with neuropathy ([facility] V24, [facility] V28) (Primary Dx); Pain in toes of both feet; Arthritis of both feet; Hammertoes of both feet; PAD (peripheral artery disease) ([facility] V24) 04/05/2025 Telephone Endocrinology [address] [phone] Eileen Kwok PA 03/28/2025 4:00 PM EDT Office Visit [address] [phone] Eileen Kwok PA Diabetes mellitus type 2 with neurological manifestations ([facility] V24, [facility] V28) (Primary Dx); Essential hypertension; Hyperlipidemia, unspecified hyperlipidemia type 03/28/2025 Telephone Adult Medicine [address] [phone] Stone Wiley MD 03/28/2025 Telephone Adult Medicine [address] [phone] Kim Upton MA 03/21/2025 Telephone Adult Medicine [address] [phone] Anayeli Thomas MA 03/15/2025 3:13 PM EDT - 03/15/2025 11:59 PM EDT Hospital Encounter Radiology Department - [address] [phone] Abnormal mammogram Discharge Disposition: Home or Self Care 03/15/2025 3:12 PM EDT - 03/15/2025 11:59 PM EDT Hospital Encounter Radiology Department [address] [phone] Abnormal mammogram Discharge Disposition: Home or Self Care 03/08/2025 Telephone Adult [address] [phone] Stone Wiley MD 03/01/[address] [phone] Stone Wiley MD 02/19/2025 8:59 AM EDT - 02/19/2025 11:59 PM EDT Hospital Encounter Radiology Department [address] [phone] Encounter for screening mammogram for malignant neoplasm of breast Discharge Disposition: Home or Self Care 02/19/2025 8:58 AM EDT - 02/19/2025 11:59 PM EDT Hospital Encounter [address] [phone] Osteoporosis, unspecified osteoporosis type, unspecified pathological fracture presence Discharge Disposition: Home or Self Care 02/15/2025 9:00 AM EDT Office Visit Adult [address] [phone] Hany Falk PA Routine history and physical examination of adult (Primary Dx); Screening for malignant neoplasm of colon; Referral of patient; Encounter for screening mammogram for malignant neoplasm of breast; Osteoporosis, unspecified osteoporosis type, unspecified pathological fracture presence; Vitamin D deficiency; Hyperlipidemia, unspecified hyperlipidemia type; Essential hypertension; Diabetes mellitus type 2 with neurological manifestations ([facility] V24, [facility] V28) 02/15/2025 Telephone Adult Medicine [address] [phone] Stone Wiley MD 02/12/2025 Telephone Adult Medicine [address] [phone] Stone Wiley MD from Last 3 Months Immunizations Name Administration Dates Next Due Influenza Quadravalent, MDCK , 0.5ml, with preservative (Flucelvax) 6mo and older 04/28/2017 Influenza trivalent, 0.5mL ( Fluzone High-dose) 65yo and older 05/16/2021 Influenza trivalent, with pr eservative (Fluzone; Afluria) 6mo and older 07/17/2016,07/16/2015,06/25/2014,04/21 PPD Test 04/08/2015 Entitle SARS-CoV-2 COVID-19, mRNA, LNP-S, preservative free 03/17/2021,02/19/2021 Pneumococcal polysaccharide 23 valent (Pneumovax 23) 2yo and older 04/21/2013 Td Tetanus diptheria, preser vative free (Tenivac) 7yo and older 02/15/2025 Tdap Tetanus diptheria acell ular pertussis (Boostrix; Adacel) 7yo and older 03/20/2013 Surgical History Surgery Date Site/Laterality Comments OTHER SURGICAL HISTORY PROCEDURE: HISTORICAL TOTAL HYSTERECTOMY W/O BSO; COMMENT: for fibroids, in [place] COLONOSCOPY W/ BIOPSIES 07/25/2013 PROCEDURE: RI COLONOSCOPY W/BIOPSY SINGLE/MULTIPLE; COMMENT: Diverticulosis; 5 mm right colon polyp: Tubular adenoma KNEE ARTHROSCOPY W/ DEBRIDEMENT 01/2018 Right PROCEDURE: RI ARTHRS KNEE DEBRIDEMENT/SHAVING ARTCLR CRTLG HYSTERECTOMY Medical History Medical History Date Comments Diverticulosis of colon (wit hout mention of hemorrhage) 07/25/2013 DX:Diverticulosis of colon ( without mention of hemorrhage); COMMENT: Incidental finding at colonoscopy 07/25/2013. Hyperlipidemia DX:Hyperlipidemi a Diabetes type 2, uncontrolled DX :Diabetes type 2, uncontrolled HTN (hypertension) DX:HTN (hyper tension) Chronic low back pain DX:Chronic low back pain Alcohol abuse DX:Alcohol abuse Diabetic neuropathy (CMS/HCC V24, CMS/HCC V28) 10/23/2017 DX:Diabetic neuropathy (HCC) Diabetes mellitus type 2 wit h neurological manifestations (CMS/HCC V24, CMS/HCC V28) 10/23/2017 DX:Diabetes mellitus type 2 with neurological manifestations (HCC) Vitamin D deficiency 10/23/2017 DX:Vitamin D deficiency Family History Medical History Relation Name Comments Diabetes Daughter 1 No Known Problems Daughter 2 No Known Problems Daughter 3 No Known Problems Daughter 4 Prostate cancer Father Breast cancer Mother Diabetes Mother HTN, cancer ?ty pe, osteoporosis, cholesterol No Known Problems Son Relation Name Status Comments Daughter 1 Alive Daughter 2 Alive Daughter 3 Alive Daughter 4 Alive Father (Age 88) Mother Son Alive Social History Tobacco Use Types Packs/Day Years Used Date Smoking Tobacco: Former Cigarettes 0.2 40.5 0 08/09/1972 - 01/26/2013 Smokeless Tobacco: Never Tobacco Cessation:Counseling Given: Not Answered Alcohol Use Standard Drinks/Week Comments Not Currently 0 (1 standard drink = 0.6 oz pur e alcohol) Comments No Sex and Gender Information Value Date Recorded Sex Assigned at Not on file Legal Sex Female 10:52 PM EST Gender Identity Not on file Sexual Orientation Not on file Obstetrics History Para Term AB IAB SAB Ectopic Multiple Livin g Live Births 5 5 5 5 Date Outcome GA Total Labor Labor/2nd/3rd Weight Sex Type Anes PTL Emperatriz A1 A5 Name Clin Term Term Term Term Term Last Filed Vital Signs Vital Sign Reading Time Taken Comments Blood Pressure 108/60 03/28/2025 4:23 PM EDT C Pulse 78 03/28/2025 4:23 PM EDT Temperature 35.7 C (96.2 F) 03/28/2025 4:23 PM EDT Respiratory Rate 16 01/10/2025 9:57 AM EDT Oxygen Saturation 95% 01/10/2025 9:57 AM EDT Inhaled Oxygen Concentration - - Weight 56.7 kg (125 lb) 03/28/2025 4:23 PM EDT Height 165.1 cm (5' 5 ) 03/28/2025 4:23 PM EDT Body Mass Index 20.8 03/28/2025 4:23 PM EDT Plan of Treatment Upcoming Encounters Date Type Department Care Team (Late st Contact Info) Description 05/11/2025 11:00 AM EDT Appointment Endoscopy [address] [place] [phone] Timmy Viera MD 175 [facility] [address] [place] [address] 05/15/2025 2:45 PM EDT Office Visit Endocrinology [address] [phone] Eileen Kwok PA [address] [place] [address] 05/31/2025 9:45 AM EDT Office Visit Adult [address] [phone] Hany Falk PA 4 [place], [place] 06/27/2025 12:00 PM EST Ancillary Procedure [facility] 101 [address] [facility] 101 [place] [phone] 07/16/2025 1:45 PM EST Office Visit Orthopedic Surgery [facility] 250 175 [facility] [address] [place] [phone] Zion Vazquez, SAFIA [address] [address] 11/29/2025 9:45 AM EDT Office Visit Adult [address] [phone] Stone Wiley MD [address] [place] [address] Health Maintenance Due Date Last Done Comments Diabetes: Annual Foot Exam 1963 Diabetes: Annual Retina Eye Exam 1965 Hepatitis A Vaccines (1 of 2 - Risk 2-dose series) 1972 RSV Immunization Adult Patients (1 - Risk 60-74 years 1-dose series) 2013 Pneumococcal Vaccine: 50+ Years (2 of 2 - PCV) 04/21/2014 04/21/2013 Zoster Vaccines (2 of 2) 11/13/2021 09/18/2021 Colorectal Cancer Screening: Colonoscopy 07/18/2022 Falls Risk Assessment 07/18/2022 Medicare Annual Wellness Visit 07/18/2022 Social Influencers of Health Screening 07/18/2022 Diabetes: Annual Urine Albumin-Creatinine Ratio (uACR) 10/16/2022 10/16/2021 Depression Screening 08/09/2024 COVID-19 Vaccine (3 - season) 2025 03/17/2021, 02/19/2021 Influenza Vaccine (#1) 2025 , 04/28/2017, 07/17/2016, Additional history exists Diabetes: Blood Sugar Control Test (HGBA1C) 07/08/2025 01/05/2025, 10/16/2021 Diabetes: Annual GFR (Glomerular Filtration Rate) 01/05/2026 01/05/2025, 05/07/2021 Hypertension/CHF/CAD Annual BMP Blood Test 01/05/2026 01/05/2025, 05/07/2021 Breast Cancer Screening 03/15/2027 03/15/20, 02/19/2025, 01/14/2022, Additional history exists Cholesterol Screening (Lipid Panel) 01/05/2030 01/05/2025, 11/21/2020 DTaP,Tdap,and Td Vaccines (3 - Td or Tdap) 02/15/2035 02/15/2025, 03/20/2013 Osteoporosis Screening (Bone Density Screening) 02/19/2035 02/19/2025, 02/18/2021 Hepatitis C Screening Completed 12/28/2017 HIB Vaccines Aged Out No longer eligi ble based on patient's age to complete this topic HPV Vaccines Aged Out No longer eligi ble based on patient's age to complete this topic Hepatitis B Vaccines Aged Out No long er eligible based on patient's age to complete this topic IPV Vaccines Aged Out No longer eligi ble based on patient's age to complete this topic MMR Vaccines Aged Out No longer eligi ble based on patient's age to complete this topic Meningococcal ACWY Vaccine Aged Out N o longer eligible based on patient's age to complete this topic Meningococcal B Vaccine Aged Out No l onger eligible based on patient's age to complete this topic RSV Immunization Patients Under 20 months Aged Out No longer eligible based on patient's age to complete this topic Varicella Vaccines Aged Out No longer eligible based on patient's age to complete this topic Procedures Procedure Name Priority Date/Time Associated Diagnosis Comments POC GLUCOSE Routine 03/28/2025 4:19 PM EDT Diabetes mellitus type 2 with neurological manifestations (CMS/HCC V24, CMS/HCC V28) US BREAST LIMITED RIGHT Routine 03/15/2025 3:52 PM EDT Abnormal mammogram MG MAMMO DIGITAL DIAGNOSTIC W OBIE RIGHT Routine 03/15/2025 3:38 PM EDT Abnormal mammogram MG MAMMO DIGITAL SCREENING W OBIE BILAT Routine 02/19/2025 9:52 AM EDT Encounter for screening mammogram for malignant neoplasm of breast BD BONE DENSITY DXA AXIAL SKELETON Routine 02/19/2025 9:29 AM EDT Osteoporosis, unspecified osteoporosis type, unspecified pathological fracture presence COMPREHENSIVE METABOLIC PANEL Routine 01/05/2025 9:46 AM EDT Diabetes mellitus type 2 with neurological manifestations (CMS/HCC V24, CMS/HCC V28) HEMOGLOBIN A1C Routine 01/05/2025 9:46 AM EDT Diabetes mellitus type 2 with neurological manifestations (CMS/HCC V24, CMS/HCC V28) LIPID PANEL WITH REFLEX TO DIRECT LDL Routine 01/05/2025 9:46 AM EDT Diabetes mellitus type 2 with neurological manifestations (CMS/HCC V24, CMS/HCC V28) HM URINE ALBUMIN CREATININE RATIO Routine 10/16/2021 HM HEPATITIS C SCREENING Routine 12/28/2017 from Last 3 Months or Most Recently Relevant to Health Maintenance Results * POC glucose manually resulted (03/28/2025 4:19 PM EDT) Glucose POC 235 mg/dL Comment:non fasting Blood Capillary blood specimen / Unknown 03/28/2025 4:19 PM EDT us Eileen PEREIRA POINT OF CARE TEST ENTER/ED IT ORDERABLES Final Result * US Breast Limited Right (03/15/2025 3:52 PM EDT) Anatomical Region Laterality Modality Breast Right Ultrasound 03/15/2025 4:00 PM EDT Impressions 03/15/2025 4:04 PM EDT No suspicious finding on callback imaging. Routine annual screening mammography recommended. BREAST DENSITY: C - The breasts are heterogeneously dense which may obscure small masses. BI-RADS CATEGORY: 1 - NEGATIVE RECOMMENDATION: Screening bilateral mammogram is recommended in 1 year. MAMMO LOCATION: [facility], [address] [place] [address], [id number], . -------- FINAL REPORT -------- Dictated By: Lavinia Foote Dictated Date: 03/15/2025 16:00 ET Assigned Physician: Lavinia Foote Reviewed and Electronically Signed By: Lavinia Foote Signed Date: 03/15/2025 16:04 ET Workstation ID: [id number] Transcribed By: Self Edit Transcribed Date: 03/15/2025 16:00 ET Narrative 03/15/2025 4:04 PM EDT EXAM: MG MAMMO DIGITAL DIAGNOSTIC W OBIE RIGHT, US BREAST LIMITED RIGHT HISTORY: Call back from a screening mammogram. FINDINGS: 90 ML and spot compression MLO and CC views performed with tomosynthesis. The focal asymmetry in the upper outer right breast at the middle depth does not persist. No mass or architectural distortion apparent. Parenchymal pattern is similar to prior exams. Targeted sonography was subsequently performed in the upper outer breast due to dense breast tissue without a solid or cystic lesion identified. Procedure Note Lavinia Foote MD - 03/15/2025 EXAM: MG MAMMO DIGITAL DIAGNOSTIC W OBIE RIGHT, US BREAST LIMITED RIGHT HISTORY: Call back from a screening mammogram. FINDINGS: 90 ML and spot compression MLO and CC views performed with tomosynthesis.The focal asymmetry in the upper outer right breast at the middle depthdoes not persist. No mass or architectural distortion apparent.Parenchymal pattern is similar to prior exams. Targeted sonography was subsequently performed in the upper outer breastdue to dense breast tissue without a solid or cystic lesion identified. IMPRESSION: No suspicious finding on callback imaging. Routine annual screeningmammography recommended. BREAST DENSITY: C - The breasts are heterogeneously dense which mayobscure small masses. BI-RADS CATEGORY: 1 - NEGATIVE RECOMMENDATION: Screening bilateral mammogram is recommended in 1 year. MAMMO LOCATION: [facility], [address] [place] [address], [facility], . -------- FINAL REPORT -------- Dictated By: Lavinia Foote Dictated Date: 03/15/2025 16:00 ET Assigned Physician: Lavinia Foote Reviewed and Electronically Signed By: Lavinia Foote Signed Date: 03/15/2025 16:04 ET Workstation ID: [id number] Transcribed By: Self Edit Transcribed Date: 03/15/2025 16:00 ET us Hany PEERIRA IMG US PROCEDURES Final Result * MG Mammo Digital Diagnostic w Obie Right (03/15/2025 3:38 PM EDT) Anatomical Region Laterality Modality Breast Right Mammography 03/15/2025 4:00 PM EDT Impressions 03/15/2025 4:04 PM EDT No suspicious finding on callback imaging. Routine annual screening mammography recommended. BREAST DENSITY: C - The breasts are heterogeneously dense which may obscure small masses. BI-RADS CATEGORY: 1 - NEGATIVE RECOMMENDATION: Screening bilateral mammogram is recommended in 1 year. MAMMO LOCATION: [facility], [address] [place] [address], [id number], . -------- FINAL REPORT -------- Dictated By: Lavinia Foote Dictated Date: 03/15/2025 16:00 ET Assigned Physician: Lavinia Foote Reviewed and Electronically Signed By: Lavinia Foote Signed Date: 03/15/2025 16:04 ET Workstation ID: [id number] Transcribed By: Self Edit Transcribed Date: 03/15/2025 16:00 ET Narrative 03/15/2025 4:04 PM EDT EXAM: MG MAMMO DIGITAL DIAGNOSTIC W OBIE RIGHT, US BREAST LIMITED RIGHT HISTORY: Call back from a screening mammogram. FINDINGS: 90 ML and spot compression MLO and CC views performed with tomosynthesis. The focal asymmetry in the upper outer right breast at the middle depth does not persist. No mass or architectural distortion apparent. Parenchymal pattern is similar to prior exams. Targeted sonography was subsequently performed in the upper outer breast due to dense breast tissue without a solid or cystic lesion identified. Procedure Note Lavinia Foote MD - 03/15/2025 EXAM: MG MAMMO DIGITAL DIAGNOSTIC W OBIE RIGHT, US BREAST LIMITED RIGHT HISTORY: Call back from a screening mammogram. FINDINGS: 90 ML and spot compression MLO and CC views performed with tomosynthesis.The focal asymmetry in the upper outer right breast at the middle depthdoes not persist. No mass or architectural distortion apparent.Parenchymal pattern is similar to prior exams. Targeted sonography was subsequently performed in the upper outer breastdue to dense breast tissue without a solid or cystic lesion identified. IMPRESSION: No suspicious finding on callback imaging. Routine annual screeningmammography recommended. BREAST DENSITY: C - The breasts are heterogeneously dense which mayobscure small masses. BI-RADS CATEGORY: 1 - NEGATIVE RECOMMENDATION: Screening bilateral mammogram is recommended in 1 year. MAMMO LOCATION: [facility], [address] [place] [address], [id number], . -------- FINAL REPORT -------- Dictated By: Lavinia Foote Dictated Date: 03/15/2025 16:00 ET Assigned Physician: Lavinia Foote Reviewed and Electronically Signed By: Lavinia Foote Signed Date: 03/15/2025 16:04 ET Workstation ID: [id number] Transcribed By: Self Edit Transcribed Date: 03/15/2025 16:00 ET Hany PEREIRA IMG BI PROCEDURES Final Result * (ABNORMAL) MG Mammo Digital Screening w Obie bilat (02/19/2025 9:52 AM EDT) Anatomical Region Laterality Modality Breast Bilateral Mammography 02/20/2025 5:44 PM EDT Impressions 02/20/2025 5:49 PM EDT 1. Left: No mammographic evidence of malignancy 2. Right: Indeterminate upper outer middle depth focal asymmetry 3. Heterogeneous breast parenchyma BI-RADS CATEGORY: 0 - INCOMPLETE - NEED ADDITIONAL IMAGING EVALUATION RECOMMENDATION: Additional right breast imaging recommended. Right breast CC and MLO spot compression, full-field ML, targeted ultrasound Mammo Location: [facility], [address] [place] [address], [id number], . -------- FINAL REPORT -------- Dictated By: Ronald Olson Dictated Date: 02/20/2025 17:44 ET Assigned Physician: Ronald Olson Reviewed and Electronically Signed By: Ronald Olson Signed Date: 02/20/2025 17:49 ET Workstation ID: [id number] Transcribed By: Self Edit Transcribed Date: 02/20/2025 17:44 ET Narrative 02/20/2025 5:49 PM EDT A BILATERAL DIGITAL 3D SCREENING MAMMOGRAPHY HISTORY: Routine screening. Family history of breast cancer in mother. COMPARISON: Multiple priors dating back to 01/10/2021 Technique: Bilateral full field digital mammography (3D) was performed using standard CC and MLO projections CAD was used to evaluate this mammogram. FINDINGS: Right: Indeterminate upper outer middle depth focal asymmetry Left: No suspicious masses, groups of microcalcification or areas of architectural distortion identified. Stable typically benign parenchymal asymmetries. BREAST DENSITY: C - The breasts are heterogeneously dense which may obscure small masses. Procedure Note Ronald Olson MD - 02/20/2025 A BILATERAL DIGITAL 3D SCREENING MAMMOGRAPHY HISTORY: Routine screening. Family history of breast cancer in mother. COMPARISON: Multiple priors dating back to 01/10/2021 Technique: Bilateral full field digital mammography (3D) was performedusing standard CC and MLO projections CAD was used to evaluate this mammogram. FINDINGS: Right: Indeterminate upper outer middle depth focal asymmetry Left: No suspicious masses, groups of microcalcification or areas ofarchitectural distortion identified. Stable typically benign parenchymalasymmetries. BREAST DENSITY: C - The breasts are heterogeneously dense which mayobscure small masses. IMPRESSION: 1. Left: No mammographic evidence of malignancy 2. Right: Indeterminate upper outer middle depth focal asymmetry 3. Heterogeneous breast parenchyma BI-RADS CATEGORY: 0 - INCOMPLETE - NEED ADDITIONAL IMAGING EVALUATION RECOMMENDATION: Additional right breast imaging recommended. Right breast CC and MLO spotcompression, full-field ML, targeted ultrasound Mammo Location: [facility], [address] [place] [address], [id number], . -------- FINAL REPORT -------- Dictated By: Ronald Olson Dictated Date: 02/20/2025 17:44 ET Assigned Physician: Ronald Olson Reviewed and Electronically Signed By: Ronald Olson Signed Date: 02/20/2025 17:49 ET Workstation ID: [id number] Transcribed By: Self Edit Transcribed Date: 02/20/2025 17:44 ET Hany PEREIRA IMG BI PROCEDURES Final Result * BD Bone Density DXA Axial Skeleton (02/19/2025 9:29 AM EDT) Anatomical Region Laterality Modality Wrist, Hip, L-spine Bone Densito metry 02/19/2025 1:17 PM EDT Impressions 02/19/2025 1:19 PM EDT Osteoporosis by WHO criteria. The [facility] Department of Internal Medicine recommends using National Osteoporosis Foundation (NOF) guidelines in treatment decisions related to osteoporosis. NOF guidelines suggest considering treatment for postmenopausal women and men aged 50 or older presenting with the following: History of hip or vertebral fracture. T-score = -2.5 (DXA) at the femoral neck, total hip, or spine, after appropriate evaluation to exclude secondary causes. Low bone mass (T-score between -1.0 and -2.5 at the femoral neck or spine) AND a 10-year probability of a hip fracture = 3% OR a 10-year probability of a major osteoporosis-related fracture = 20% based on the [place]-adapted WHO algorithm Please note that all treatment decisions require clinical judgment and consideration of individual patient factors, including patient preferences, co-morbidities, previous drug use, risk factors not captured in the FRAX model (e.g., frailty, falls, vitamin D deficiency, increased bone turnover, interval significant decline in bone density) and possible under- or over-estimation of fracture risk by FRAX. Optional alternative screening schedule based on jada Dickinson., [facility] August 27, 2011 for patients with osteopenia (based on hip BMD T-score) is as follows: * advanced osteopenia (T scores -2.00 to -2.49), BMD testing every year * moderate osteopenia (T scores -1.50 to -1.99), BMD testing every 5 years mild osteopenia or normal BMD (T scores -1.50 and higher), BMD testing every 15 years -------- FINAL REPORT -------- Dictated By: Lavinia Foote Dictated Date: 02/19/2025 13:17 ET Assigned Physician: Lavinia Foote Reviewed and Electronically Signed By: Lavinia Foote Signed Date: 02/19/2025 13:19 ET Workstation ID: [id number] Transcribed By: Self Edit Transcribed Date: 02/19/2025 13:17 ET Narrative 02/19/2025 1:19 PM EDT BONE DENSITY SCAN (DEXA): FINDINGS: Lumbar Spine T-score is -3.8. (SD relative to 20-29 y/o adult) Z-score is -1.6. (SD relative to age matched peers) This is considered osteoporosis by WHO criteria. Left Hip T-score is -2.6. Z-score is -0.8. This is considered osteoporosis by WHO criteria. Comparison exam(s): 02/18/2021. 9.8% loss of lumbar spine bone mineral density and 11.0% loss of left hip bone mineral density, both statistically significant at the 95% confidence level. Lateral survey view of the thoracolumbar spine shows no significant compression deformities of the visualized vertebral elements. Procedure Note Lavinia Foote MD - 02/19/2025 BONE DENSITY SCAN (DEXA): FINDINGS: Lumbar Spine T-score is -3.8. (SD relative to 20-29 y/o adult) Z-score is -1.6. (SD relative to age matched peers) This is considered osteoporosis by WHO criteria. Left Hip T-score is -2.6. Z-score is -0.8. This is considered osteoporosis by WHO criteria. Comparison exam(s): 02/18/2021. 9.8% loss of lumbar spine bone mineraldensity and 11.0% loss of left hip bone mineral density, bothstatistically significant at the 95% confidence level. Lateral survey view of the thoracolumbar spine shows no significantcompression deformities of the visualized vertebral elements. IMPRESSION: Osteoporosis by WHO criteria. The [facility] Department of Internal Medicine recommendsusing National Osteoporosis Foundation (NOF) guidelines in treatmentdecisions related to osteoporosis. NOF guidelines suggest consideringtreatment for postmenopausal women and men aged 50 or older presentingwith the following: History of hip or vertebral fracture. T-score = -2.5 (DXA) at the femoral neck, total hip, or spine, afterappropriate evaluation to exclude secondary causes. Low bone mass (T-score between -1.0 and -2.5 at the femoral neck or spine)AND a 10-year probability of a hip fracture = 3% OR a 10-year probabilityof a major osteoporosis-related fracture = 20% based on the [place]-adapted WHOalgorithm Please note that all treatment decisions require clinical judgment andconsideration of individual patient factors, including patientpreferences, co-morbidities, previous drug use, risk factors not capturedin the FRAX model (e.g., frailty, falls, vitamin D deficiency, increasedbone turnover, interval significant decline in bone density) and possibleunder- or over-estimation of fracture risk by FRAX. Optional alternative screening schedule based on jada Dickinson., [facility] for patients with osteopenia (based on hip BMD T-score)is as follows: * advanced osteopenia (T scores -2.00 to -2.49), BMD testing every year * moderate osteopenia (T scores -1.50 to -1.99), BMD testing every 5years mild osteopenia or normal BMD (T scores -1.50 and higher), BMD testingevery 15 years -------- FINAL REPORT -------- Dictated By: Lavinia Foote Dictated Date: 02/19/2025 13:17 ET Assigned Physician: Lavinia Foote Reviewed and Electronically Signed By: Lavinia Foote Signed Date: 02/19/2025 13:19 ET Workstation ID: [id number] Transcribed By: Self Edit Transcribed Date: 02/19/2025 13:17 ET Hany PEREIRA IMG DXA PROCEDURES Ranjana l Result * Lipid panel with reflex to direct LDL (01/05/2025 9:46 AM EDT) Cholesterol 142 0 - 200 mg/dL LAB CHEMISTRY [facility] Triglycerides 101 0 - 150 mg/dL LAB CHEMISTRY METHOD 01/05/2025 2:36 PM [facility] HDL 54 >=40 mg/dL LAB CHEMISTRY METHOD 01/05/2025 2:36 PM [facility] LDL Calculated 68 0 - 100 mg/dL LAB CHEMISTRY METHOD 01/05/2025 2:36 PM [facility] VLDL Cholesterol Rusty 20.2 mg/dL LAB CHEMISTRY METHOD 01/05/2025 2:36 PM T [facility] Non HDL Chol. (LDL+VLDL) 88 <145 mg/dL LAB CHEMISTRY METHOD 01/05/2025 2:36 PM T [facility] Chol/HDL Ratio 2.6 0.0 - 4.4 LAB CHEMISTRY METHOD 01/05/2025 2:36 PM [facility] Blood Venous blood specimen / Unknown Venipuncture / Unknown 01/05/2025 9:46 AM EDT 01/05/2025 9:46 AM EDT Hany PEREIRA LAB BLOOD ORDERABLES Fi nal Result Performing Organization Address City/[facility]/ZIP Co de Phone Number [facility] [address] [place] [address], [place] [phone] * (ABNORMAL) Hemoglobin A1c (01/05/2025 9:46 AM EDT) [facility] Hemoglobin A1C 9.9(H) <6.5 % LAB CHEMISTRY METHOD 01/05/2025 1:58 PM EDT [facility] Mean Bld Glu Estim. 237 mg/dL LAB CHEMISTRY METHOD 01/05/2025 1:58 PM EDT [facility] Blood Venous blood specimen / Unknown Venipuncture / Unknown 01/05/2025 9:46 AM EDT 01/05/2025 9:46 AM EDT Hany PEREIRA LAB BLOOD ORDERABLES Fi nal Result Performing Organization Address City/[facility]/ZIP Co de Phone Number [facility] [address] [place] [address], [place] [phone] * (ABNORMAL) Comprehensive metabolic panel (01/05/2025 9:46 AM EDT) [facility] Sodium 133 133 - 145 mmol/L LAB CHEMISTRY METHOD 01/05/2025 2:36 PM EDT [facility] Potassium 3.8 3.5 - 5.5 mmol/L LAB CHEMISTRY METHOD 01/05/2025 2:36 PM EDT [facility] Chloride 99 96 - 110 mmol/L LAB CHEMISTRY METHOD 01/05/2025 2:36 PM EDT [facility] CO2 26 21 - 32 mmol/L LAB CHEMISTRY METHOD 01/05/2025 2:36 PM EDT [facility] Anion Gap 8 3 - 11 LAB CHEMISTRY METHOD 01/05/2025 2:36 PM [facility] Glucose 172(H) 70 - 100 mg/dL LAB CHEMISTRY METHOD 01/05/2025 2:36 PM [facility] BUN 7 5 - 25 mg/dL LAB CHEMISTRY METHOD 01/05/2025 2:36 PM [facility] Creatinine 0.66 0.50 - 1.10 mg/dL LAB CHEMISTRY METHOD 01/05/2025 2:36 PM [facility] eGFR 94 >=60 mL/min/1. 73m2 LAB CHEMISTRY METHOD 01/05/2025 2:36 PM [facility] Comment:Calculation based on the Chronic Kidney Disease Epidemiology Collaboration (CKD-EPI) equation refit without adjustment for race. BUN/Creatinine Ratio 10.6 LAB CHEMISTRY METHOD 01/05/2025 2:36 PM [facility] Calcium 9.4 8.5 - 10.5 mg/dL LAB CHEMISTRY METHOD 01/05/2025 2:36 PM [facility] AST (SGOT) 13 10 - 42 unit/L LAB CHEMISTRY METHOD 01/05/2025 2:36 PM [facility] ALT (SGPT) 19 10 - 60 unit/L LAB CHEMISTRY METHOD 01/05/2025 2:36 PM [facility] Alkaline Phosphatase 73 42 - 121 unit/L LAB CHEMISTRY METHOD 01/05/2025 2:36 PM [facility] Total Protein 7.1 6.0 - 8.0 g/dL LAB CHEMISTRY METHOD 01/05/2025 2:36 PM [facility] Albumin 3.2 3.2 - 5.0 g/dL LAB CHEMISTRY METHOD 01/05/2025 2:36 PM [facility] Total Bilirubin 1.1 0.0 - 1.4 mg/dL LAB CHEMISTRY METHOD 01/05/2025 2:36 PM [facility] Blood Venous blood specimen / Unknown Venipuncture / Unknown 01/05/2025 9:46 AM EDT 01/05/2025 9:46 AM EDT Hany PEREIRA LAB BLOOD ORDERABLES Fi nal Result [facility] [address] [place] [address], * Urine Albumin Creatinine Ratio (10/16/2021) Urine Albumin Creatinine Ratio Abstracted Historical Provider HEALTH MAINTENANCE Final Result * Hepatitis C Screening (12/28/2017) Hepatitis C Screening Abstracted Historical Provider HEALTH MAINTENANCE Final Result from Last 3 Months or Most Recently Relevant to Health Maintenance Insurance [facility]IC[facility] Member Subscriber Plan / Payer (Ef fective 2024-Present) Name:Annalise Melendez Relation to Subscriber:Self Name:Annalise Melendez Payer ID:[id number] Group ID:[id number] Type:Not on file Address: [place] [address] [place] [phone] Care Teams Financial Operations Clerk Relationship Specialty Start Date End Date Stone Wiley MD [address] [place] [phone] PCP - General Internal Medicine 06/06/21
--- OUTSIDE RECORDS SUMMARY | 2025-05-01 12:30 | XMS_ITS | Encounter Summary ---
Author Organization [facility] Address [address] [place] [address] Care Team Providers Care Software Licensing Analyst Name Role Phone Stone Wiley MD Primary Care Provider [phone] Reason for Visit * Reason Onset Date Comments Med Change Request 04/05/2025 Encounter Details Date Type Department Care Team ([facility] st Contact Info) Description 04/05/2025 Telephone [place] [id number] [place], [place] [phone] Eileen Kwok PA [address] [place] [phone] Social History Tobacco Use Types Packs/Day Years [...] on file documented as of this encounter Ordered Prescriptions Prescription Sig Dispense Quantity Refills Last Filled Start Date End Date insulin glargine (Lantus Solostar U-100 Insulin) 100 unit/mL (3 mL) injection pen 14 units sc at bedtime 15 mL 11 04/05/2025 documented in this encounter Progress Notes * KELLI Becerril - 04/05/2025 3:19 PM EDT Lantus refilled). I am not prescribing Humalog * Carolin Ferraro RN - 04/05/2025 3:02 PM EDT PLAN: Patient presents to the office for diabetes consultation 1. Diabetes: A1c increased last visit Previous labs and history reviewed Blood sugars running uncontrolled Stop lispro Increase Lantus to 14 units Stop Janumet. Sent metformin 500 mg 2 tablets twice a day Start Trulicity Proper use side effect of medications discussed I think this would be a good medication to her stroke history Continue with lifestyle modifications Follow-up in 6 weeks CGM ordered through [facility] reliable diabetes 2. Hypertension: Blood pressure at goal. Continue with current blood pressure lowering medications 3. Hyperlipidemia: Continue on atorvastatin [facility]us [facility] to [facility] Lispro d/c at last visit * Vilma Moreau - 04/05/2025 11:03 AM EDT Pt is requesting for the Lantus solostar pen and Humalog (lispro) PENS to be sent to [facility]. They no longer want to use the vial options documented in this encounter Plan of Treatment Upcoming Encounters Date Type Department Care Team (Late st Contact Info) Description 05/11/2025 11:00 AM EDT Appointment [facility]oscopy [address] [place] [phone] Timmy Viera MD [address] [address] 05/15/2025 2:45 PM EDT Office Visit [address] [phone] Eileen Kwok PA [address] [place] [address] 05/31/2025 9:45 AM EDT Office Visit Adult [address] [phone] Hany Falk PA [address] [place] [address] 06/27/2025 12:00 PM EST Ancillary Procedure [facility] [address] [facility] 101 [place] [address] 07/16/2025 1:45 PM EST Office Visit Orthopedic Surgery - [place] [address] [phone] Zion Vazquez, DPJack [address] [address] 11/29/2025 9:45 AM EDT Office Visit Adult [address] [phone] Stone Wiley MD [address] [place] [address] documented as of this encounter Visit Diagnoses Not on filedocumented in this encounter Discontinued Medications Medication Sig Discontinue Reason Start Date End Da te insulin glargine (Lantus Solostar U-100 Insulin) 100 unit/mL (3 mL) injection pen 14 units sc at bedtime Reorder 03/28/2025 04/05/2025 documented as of this encounter Care Teams Software Licensing Analyst Relationship Specialty Start Date End Date Stone Wiley MD [address] [place] [address] PCP - General Internal Medicine 06/06/21 documented as of this encounter
--- OUTSIDE RECORDS SUMMARY | 2025-05-01 12:30 | XMS_ITS | Continuity of Care Document ---
Author Name Migue Fair Address [address] [place] [address] Organization Unknown Address [address] [place] [address] Medications No known medications Problems No known problems
--- OUTSIDE RECORDS SUMMARY | 2025-05-01 12:30 | XMS_ITS | Encounter Summary ---
Author Organization [facility] Address [address] [place] [address] Care Team Providers Care Assembly Stock Supervisor Name Role Phone Stone Wiley MD Primary Care Provider [phone] Reason for Visit * Reason Onset Date Comments Request For Order(s) 03/28/2025 Mayonr HOANG #[id number], #[id number] Encounter Details Date Type Department Care Team (Late Contact Info) Description 03/28/2025 Telephone Adult Medicine [address] [phone] Kim Upton [place] Social History Tobacco Use Types Packs/Day Years [...] as of this encounter Progress Notes * Kim Upton MA - 03/28/2025 12:26 PM EDT Faxed order #[id number] & #[id number] from Maynor HOANG received and placed in provider bin for signature documented in this encounter Plan of Treatment Upcoming Encounters Date Type Department Care Team (Late st Contact Info) Description 05/11/2025 11:00 AM EDT Appointment [facility] Endoscopy [address] [place] [phone] Timmy Viera MD 175 [facility] [address] [place] [address] 05/15/2025 2:45 PM EDT Office Visit Endocrinology [address] [phone] Eileen Kwok PA [address] [place] [address] 05/31/2025 9:45 AM EDT Office Visit Adult Medicine [address] [phone] Hany Falk PA [address] [place] [address] 06/27/2025 12:00 PM EST Ancillary Procedure [facility] 101 300 [facility] 101 [place] [phone] 07/16/2025 1:45 PM EST Office Visit Orthopedic Surgery - [place] 250 175 [facility] 250 [place] [phone] Zion Vazquez, DPJack 175 [facility] [address] [place] [address] 11/29/2025 9:45 AM EDT Office Visit Adult Medicine [address] [phone] Stone Wiley MD [address] [place] [address] documented as of this encounter Visit Diagnoses Not on filedocumented in this encounter Care Teams Assembly Stock Supervisor Relationship Specialty Start Date End Date Stone Wiley MD [address] [place] [address] PCP - General Internal Medicine 06/06/21 documented as of this encounter
--- OUTSIDE RECORDS SUMMARY | 2025-05-01 12:30 | XMS_ITS | Continuity of Care Document ---
Author Name Migue Fair Address [address] [place] [address] Organization Unknown Address [address] [place] [address] Medications No known medications Problems No known problems
--- OUTSIDE RECORDS SUMMARY | 2025-05-01 12:30 | XMS_ITS | Encounter Summary ---
Author Organization [facility] Address [address] [facility] [address] [place] [address] Encounters * CPT with Medical [facility] at [facility] on 2025-04-21 { reasonForRequest : *Pt was recently seen by [facility] on 04/16>daughter Alexandria requesting to follow up , patientReports : Dental pain and fever, able to maintain secretions , denies :[ Sudden onset of dental pain, unableto manage own secretions , Nosebleed lasting longer than one hour; unable to stop bleeding , Throat swelling/difficult swallowing ], chiefComplaints : Dental Co mplaint , pmh : Hyperlipidemia, Hypertension, Diabetes Mellitus Type 2, Stroke&q uot;, allergies : No Known Drug Allergies , otherAllergies : &quo t;, painAssessment : , visitOutcome : , additionalComments : 69 y.o female complains of Dental Complaint\n\nPatients daughter calling in to follow up as well as place a new referral for possioble new antibiotic\nPatient was seen 04/16 for probable maxillary tooth infection. At that time patient was in severe pain with right sided cheek and ear swelling\nPer daughter there is no longer any swelling to the cheek or ear\nDaughters concern is that the pain has not subsided like it usually does when on antibiotics\nShe reports patient being on5 courses of antibiotics since December, however, dental work was postponed due to a stroke\nDentist cannot see her until 05/23, she is on a cancel list\nPer daughter patient refuses to speak since stroke, but uses hand gestures\nPatient has been signaling that she is still in pain, and has not been eating due to the pain\nPain is the right upper side, daughter has not been able to visualize the innergum\nThere is no obvious swelling to the jaw, cheek or ear, maybe slight redness to the the right cheek\nNo fever/chills, no nausea, vomiting or diarrhea\nUnsure of foul taste\nDaughter states last antibitoc, which per documentation was PCN VK worked well and is hoping to get that prescribed\n\n04/20 3p- per [facility], requesting a visit tomorrow 04/21 instead of today- AC\n\n\nI provided information on the mobile health provider response time and advised the patient and/or caregiver to monitor reported signs and symptoms. I discussed the warning signs of when to seek emergency care. } Arrived to find patient in her residence, patient aox4 GCS 15 pink warm and dry. Patient has had dental pain since 04/16. Patient was prescribed antibiotics and has two days left. Patient has reported no improvement with the ABX. No drainage. No swelling has a dentist appt. On 05/23 with oral surgeonfor extraction. Patient does not have a sooner MD appt. Patient stated that she is going to call for an earlier appt. C called advised to gargle warm water and salt. And OTC Tylenol. And earlier appt. Patient understood. No red flag symptoms. ORAL_MEDICATION, POC_FLU_STREP, COVID_TEST Written by Medical [facility] on 2025-04-21
--- OUTSIDE RECORDS SUMMARY | 2025-05-01 12:30 | XMS_ITS | Continuity of Care Document ---
Author Name [facility], Medical Address [address] [place] [address] Organization Unknown Address [address] [place] [address] Medications No known medications Problems No known problems
--- OUTSIDE RECORDS SUMMARY | 2025-05-01 12:30 | XMS_ITS | Encounter Summary ---
Author Organization [facility] Address [address] [facility] [address] [place] [address] Encounters * CPT with Migue Fair at [facility] on 2025-02-14 { reasonForRequest : Patient's right ear on the outside, not the inside is really swollen. , patientReports : Rash , denies :[ Floyd Flash,circumferential floyd , Floyd reported with black tissue to the area , Open skin area after a fall with uncontrolled bleeding , Abscess/infection with streaking noted, presence of fever or without ], chiefComplaints : Ear Complaint , pmh": Hyperlipidemia, Hypertension, Diabetes Mellitus Type 2, Stroke , allergies : No Known Drug Allergies , otherAllergies : , painAssessment&qu ot;: , visitOutcome : , additionalComments : 69 y.o female complains of Ear Complaint\n\nSymptoms started x 1 day\n\nRight ear pain - Pain is located onthe outside - swelling with redness/itchiness\n\nDenies fever - Denies drainage \n\nTaking Tylenol with no relief\n\nWellness check requested \n\nAgree to a visit on 02/14 \n\nI provided information onthe mobile health provider response time and advised the patient and/or caregiver to monitor reported signs and symptoms. I discussed the warning signs of when to seek emergency care. } Encountered patient, conscious alert and ambulatory with family present. Patient reports since yesterday morning she has been experiencing right sided facial swelling, that is warm to the touch, on the posterior portion of the zygomatic bone. Patient denies experiencing pain inside of her ear, auditory changes and fevers. Patient additionally reports she cannot recall the last time she was seen by a dentist or received oral care. Skin warm, dry and of appropriate color for ethnicity. Head and neck, free of trauma and edema; right posterior zygomatic region is moderately swollen in comparison to patients left side; patient reports pain at rest as ???pressure?? that is not made worse by chewing or swallowing. -JVD. Breath sounds present, clear and equal bilaterally. Abdomen is soft, non-tender and non-distended. Extremities are free of trauma and edema. [facility] contacted: reports above all patient should do their best to make arrangements to be seen by a dentist as soon as possible. [facility] additionally report reports they will treat for a suspected tooth infection and will send a prescription for further treatment to a pharmacy of patients choice. Augmentin x 1 administered, 600mg of PO ibuprofen administered after medication ???rights?? were reconciled with patient. Patient and family were advised to monitor for increased swelling, uncontrollable pain, fevers or difficulty swallowing and to consider further medical attention, including 911 if said symptoms were to develop. Patient and family verbalized understanding of the plan and report they are comfortable with patient remaining home today. Patient???s daughter actively on the phone attempting to arrange a dental appointment on behalf of patient. IV_(FLUIDS_AND/OR_MEDICATION), MEDICATION_IM, ORAL_MEDICATION, POC_BLOODWORK Written by Migue Fair on 2025-02-14
--- OUTSIDE RECORDS SUMMARY | 2025-05-01 12:30 | XMS_ITS | Encounter Summary ---
Author Organization [facility] Address [address] [place] [address] Care Team Providers Care Casing Worker Name Role Phone Stone Wiley MD Primary Care Provider [phone] Reason for Visit * Reason Onset Date Comments Med Refill 03/28/2025 Encounter Details Date Type Department Care Team (Late st Contact Info) Description 03/28/2025 Telephone Adult Medicine [address] [phone] Stone Wiley MD [address] [place] [address] Social History Tobacco Use Types Packs/Day Years [...] as of this encounter Progress Notes * Stone Wiley MD - 04/02/2025 6:07 PM EDT Looks like this was addressed via endocrine on 03/28/2025 * Alexandria Treviño - 04/02/2025 10:38 AM EDT [facility] is calling in to inquire about the status of this med problem. Please advise. * Maribell Martin - 03/28/2025 3:48 PM EDT Patient child care director is requesting a change Pens for the Lispro and the Lantus instead. Refills not on Current Medication List Patient would like script to be: E-PRESCRIBED/FAXED TO PHARMACY BY THE END OF THE DAY WHEN WAS THE PATIENT'S LAST APPOINTMENT IN ADULT MEDICINE? 01/10/2025 WHEN WAS THE LAST TIME THE PATIENT SAW THEIR PCP? Same as above Does patient have an upcoming appointment? Yes 02/15/2025 (THE MEDICATION REQUESTED IS NOT ON THE MED LIST ABOVE) PREFERRED PHARMACY: [facility] [address] [address] Is this a mail order prescription request?: yes Did you check the Pharmacy information above?: yes Patients current insurance carrier is: Payor: [facility] [employer] / Plan: [facility] CARE / Product Type: *No Product type* / Insurance ID #: @[id number]@ documented in this encounter Plan of Treatment Upcoming Encounters Date Type Department Care Team (Late st Contact Info) Description 05/11/2025 11:00 AM EDT Appointment [facility] [address] [place] [phone] Timmy Viera MD [address] [id number] 05/15/2025 2:45 PM EDT Office Visit Endocrinology [address] [phone] Eileen Kwok PA [address] [place] [address] 05/31/2025 9:45 AM EDT Office Visit Adult Medicine [address] [phone] Hany Falk PA [address] [place] [address] 06/27/2025 12:00 PM EST Ancillary Procedure [facility] [address] [address] 07/16/2025 1:45 PM EST Office Visit Orthopedic Surgery - [place] [address] [phone] Zion Vazquez, DPM [address] [address] 11/29/2025 9:45 AM EDT Office Visit Adult [address] [phone] Stone Wiley MD [address] [place] [address] documented as of this encounter Visit Diagnoses Not on filedocumented in this encounter Care Teams Casing Worker Relationship Specialty Start Date End Date Stone Wiley MD [address] [place] [address] PCP - General Internal Medicine 06/06/21 documented as of this encounter
--- OUTSIDE RECORDS SUMMARY | 2025-05-01 12:30 | XMS_ITS | Encounter Summary ---
Author Organization [facility] Address [address] [place] [address] Encounters * CPT with [facility] on 2025-04-16 { reasonForRequest : Pt's daughter reporting a tooth infection , patientRep orts : Dental pain and fever, able to maintain secretions , denies :[ Sudden onset of dental pain, unable to manage own secretions , Nosebleed lasting longer than one hour; unable to stop bleeding , Throat swelling/difficult swallowing , Sinus infection , Conjunctivitis , External Ear concerns ], chiefComplaints : Dental Complaint, Ear Complaint , pmh : Hyperlipidemia, Hypertension, Diabetes Mellitus Type 2, Stroke , allergies : No Known Drug Allergies&q uot;, otherAllergies : , painAssessment : , visitOutc ome : , additionalComments : 69 y.o female complains of Dental Compla int\nPatients daughter making referral\nPatient is complaining of dental pain this has been happening on and off\nPatient needs dental work done. \ndentist appointment on 05/23 and as of yet cannot get a sooner appointment\ndenies any fever or chills\nendorses headache\nendorses pain in right ear.\ndenies any issues chewing swallowing denies any sore throat. \ndenies any kidney disease and is on baby aspirin \n\n\nI provided information on the mobile health provider response time and advised the patient and/or caregiver to monitor reported signs and symptoms. I discussed the warning signs of when to seek emergency care. } Pt seen for primary complaint of dental pain. Met fisher x 4 ambulatory Pt inside her residence. Pt reports dental pain, in the back R side of her mouth, both upper and lower in the area of her molars. Pt reports she has an appointment scheduled for 05/23/2025 for dental work. Pt reports she has had 4tooth abscesses in the past and they have felt like this, Pt reports she is normally treated with PO antibiotics when suffering from a tooth abscess. Pt reports the pain began this morning. Pt deniesany trauma or injury to cause the pain. Pt denies all other complaints. Pt exam unremarkable. VS asnoted. [facility] contacted and advised of Pt complaint, presentation and exam findings. [facility] to send antibiotic prescription to Pt's pharmacy of choice. Pt allergies confirmed. Pt advised of [facility] tx plan, Ptunderstanding and agreeable to tx plan. Pt advised of red flags to be aware of and to seek medical attention should they arise. Pt has no further questions or concerns, call closed. IV_(FLUIDS_AND/OR_MEDICATION), MEDICATION_IM, ORAL_MEDICATION, POC_BLOODWORK, POC_FLU_STREP, COVID_TEST Written by Medical [facility] on 2025-04-16
--- OUTSIDE RECORDS SUMMARY | 2025-05-01 12:30 | XMS_ITS | Continuity of Care Document ---
Author Name [facility] Address [address] [place] [id number] Organization Unknown Address [address] [place] [address] Medications No known medications Problems No known problems
== END 2025-05-01 10:52 | disposition home or self-care (01) ==
LOC: HO.HSM 10:18
PROVIDERS: PCP Internal Medicine; Visit Provider Psychiatry & Neurology Neurology
DX: G31.84 Mild cognitive impairment of uncertain or unknown etiology (principal); E11.42 Type 2 diabetes mellitus with diabetic polyneuropathy; Z86.73 Personal history of transient ischemic attack (TIA), and cerebral infarction without residual deficits
CPT/HCPCS: 99214

== ENCOUNTER → 2025-05-01 10:17 | Outpatient (BNVA) | payer OTHER, SELFPAY | PROVIDERS: PCP Internal Medicine; Visit Provider Psychiatry & Neurology Neurology | DX: G31.84 Mild cognitive impairment of uncertain or unknown etiology (principal); E11.42 Type 2 diabetes mellitus with diabetic polyneuropathy; Z86.73 Personal history of transient ischemic attack (TIA), and cerebral infarction without residual deficits | CPT/HCPCS: 99212 ==

== ENCOUNTER 2025-07-09 11:55 | Outpatient (AMB) | payer OTHER, SELFPAY ==
--- NOTE | 2025-07-09 11:57 | MHC.OFFVIS ---
Intake Visit Reasons: 2m Accompanied by: Daughter Allergies carisoprodol Allergy (Verified 07/09/25 12:01) Unknown ethinyl estradiol (From Seasonale (91)) Allergy (Verified 07/09/25 12:01) Unknown Medication List - Last Reconciled 07/09/25 by Rosario Kauffman CNP amlodipine 2.5 mg PO DAILY aspirin 81 mg PO DAILY atorvastatin 40 mg PO BEDTIME blood sugar diagnostic (FreeStyle Lite Strips) QID blood-glucose meter (FreeStyle Lite Meter kit) As directed cetirizine 10 mg PO DAILY PRN donepezil 10 mg PO DAILY 30 days dulaglutide (Trulicity) 0.75 mg subcut QWEEK insulin lispro (Humalog KwikPen (U-100) Insulin) See Protocol sliding scale doses subcut QIDACHS lancets (FreeStyle Lancets) QIDACH lisinopril 10 mg PO DAILY loperamide-simethicone 2-125 mg (Imodium Multi-Symptom Relief) 2 tabs PO DAILY pen needle, diabetic (Pen Needle) QIDACH HPI Comments Details: 70-year-old woman with h/o alcohol use disorder in the past, diabetes for 15+ yrs, who had stopped her meds for 3-4 yrs, with elevated blood sugar out of control, who moved to this area around 11/2024 from [place], and presented to [facility] on 12/31/24 with sudden onset right sided weakness and slurred speech. In ED, a CT/CTA were done showing hemodynamically insignificant narrowing of bilateral carotids of about 60%. 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 Walking, speech, and eating has improved. She was living with her daughter. Her daughter noted decline in short-term memory while still living in [place] that has worsened over the last few months. Her daughter was managing her medications. She was complaining of bilateral prickly pain and numbness in her feet below the ankles that affected her sleep. She was doing okay. She was not taking pregabalin as medication made her more tired. Pain in feet was not as bad and blood sugar was under better control. She was walking with walker, no falls. No side effects with increased dose of donepezil. Her daughter noted that her memory may also be a bit better, but long-term memory was better than short-term. Sleep was up and down as her watched TV late at night in bed. [facility] Medical History (Updated 05/01/25 @ 10:48 by Hitesh Sebastian MD) Cerebrovascular accident Type 2 diabetes mellitus, controlled, with renal complications Hyperlipidemia Depression Diverticulitis of colon without hemorrhage Vitamin D deficiency Diabetic neuropathy Diabetes mellitus type 2 with neurological manifestations Osteoporosis Right sided weakness Slurred speech Uncontrolled diabetes mellitus with hyperglycemia Family History (Updated 02/05/25 @ 18:18 by Pippa Brandon MA) Mother Hypertension Cancer Osteoporosis High cholesterol Father Prostate cancer Daughter Diabetes Social History (Updated 02/05/25 @ 18:17 by Pippa Brandon MA) Household Members: Family Housing: House Do you presently have visiting nurse or other home services: No Alcohol intake: former Patient Tobacco Use Status: Former Tobacco user e-Cigarette/Vaping Use: Never Used service: No Review of Systems Const Details: Sleep Difficulty getting to sleep??denies.??Difficulty maintaining sleep??denies?.??Urge to move legs??denies.?? Teeth grinding??denies.??Shouting or Kicking during sleep??denies.??Abnormal behavior during sleep??denies.?? Excessive sleep??denies.??Snoring??denies.??Daytime sleepiness??denies.? General/Constitutional Change in appetite??denies.??Chills??denies.??Fatigue??denies.??Fever??denies.??Weight gain??denies.??Weight loss??denies.? Respiratory Shortness of breath??yes.??Chest pain??denies.??Cough??denies.? Cardiovascular Chest pain at rest??denies.??Chest pain with exertion??denies.??Claudication??denies.??Dizziness??denies.??Fluid accumulation in the legs??denies.??Irregular heartbeat??denies.??Palpitations??denies.? Gastrointestinal Abdominal pain??denies.??Constipation??denies.??Diarrhea??denies.?? Difficulty swallowing??denies.??Heartburn??denies.??Nausea??denies.??Rectal bleeding??denies.? Genitourinary Frequent urination??denies.??Urgency??denies.??Incontinence??denies.??Erectile Dysfunction??denies.? Musculoskeletal Neck pain??denies.??Back pain??denies.??Muscle aches??denies.??Painful joints??denies.??Sciatica??denies.??Weakness??denies.? Neurologic Difficulty swallowing??yes.??Balance difficulty??denies.??Coordination??normal.? Difficulty speaking??yes.??Dizziness??denies.??Fainting??denies.??Gait abnormality??yes.??Headache??denies.? Loss of strength??denies.??Loss of use of extremity??denies.??Low back pain??denies.?? Memory loss??yes.??Seizures??denies.??Tics??denies.??Tingling/Numbness??Both feet .??Transient loss of vision??denies.??Tremor??denies.? Psychiatric Anxiety??denies.??Auditory/visual hallucinations??denies.??Delusions??denies.??Depressed mood??denies.??Stressors??denies.??Substance abuse??denies.??Suicidal thoughts??denies. Physical Exam Const Other: General Appearance:? normal, in no acute distress. Heart:? S1, S2 normal, no murmurs. Lungs:? clear anteriorly and posteriorly. Musculoskeletal:? normal. Extremities:? no edema. Psych:? alert, as below. Neuro Other: Abnormal Neurological Findings:?expressive dysphasia. absent ankle reflexes. Blunting of pin prick and vibration below mid tarsal level. Walking with walker. MMSE 22/30. Mental Status: alert, as below. Cranial Nerves: Pupils are equal, round, and reactive to light. External ocular muscles are intact. Visual cherry are full, no ptosis. Face is symmetrical, no facial weakness or droop. Facial sensations are normal. Tongue protrudes in midline. Palate elevates symmetrically. Shoulder shrugging is normal Motor Examination: As above, otherwise normal muscle tone, bulk and strength. No atrophy or fasciculations. No drift of the extended upper extremities. DTR 2+ with absent ankle reflexes. Plantars are flexor. Sensory Exam: As above. Coordination: No ataxia. No titubation. Gait Exam: With walker. Cerebellar Signs: [id number] is okay. Extrapyramidal System: No tremor, rigidity with normal facial expressions. No bradykinesia. No bradyphrenia. Normal arm swing and posture. No propulsion or retropulsion. Speech: As above. MMSE Level of Consciousness: Alert. Orientation: Knows correct year, month, day and season. Does not know date. Knows correct city, county and state. Knows correct location and floor. Registration: Able to register 3 objects. Attention: Unable to do. Recall: Able to recall 1 out of 3 objects. Language: Normal spontaneous speech, fluency, repetition, naming, comprehension, reading, and writing. Total Score: 22/30. Results Reviewed Results Reviewed: 03/27/25 Mild, sensory greater than motor, primarily demyelinating neuropathy in the lower extremities. Normal EMG in the right L4-S1 innervated muscles. Assessment & Plan Assessment & Plan (1) MCI (mild cognitive impairment): Code(s): G31.84 - Mild cognitive impairment of uncertain or unknown etiology Category: Medical Plan: Continue donepezil 10mg 1 tablet at bedtime. Start memantine 5mg 1 tablet twice a day, use/side effects reviewed. Stay physically and socially active. Follow up in 3 months or sooner as needed. (2) Diabetic neuropathy: Comment: Mild sensory demyelinative neuropathy on [facility] Mar 2025 Code(s): E11.40 - Type 2 diabetes mellitus with diabetic neuropathy, unspecified Category: Medical Qualifiers: Diabetes mellitus complication detail: diabetic polyneuropathy Diabetes mellitus type: type 2 Qualified Code(s): E11.42 - Type 2 diabetes mellitus with diabetic polyneuropathy Plan: She tried pregabalin, but had side effects and stopped medication. Discussed other medication options, declining at this time. Control blood sugar, stay physically active. (3) History of stroke: Code(s): Z86.73 - Personal history of transient ischemic attack (TIA), and cerebral infarction without residual deficits Category: Medical Plan: Continue low dose aspirin and statin. Control blood pressure and blood sugar. Plan Meds tried: pregabalin Medications: New memantine (Namenda) 5 mg PO BID 60 tabs 2RF 30 days Refilled donepezil 10 mg PO DAILY 30 tabs 5RF 30 days Coding Level of Care Code Est Pt Level 4 (65548) Diagnoses MCI (mild cognitive impairment) G31.84 Diabetic polyneuropathy associated with type 2 diabetes mellitus E11.42 Diabetes mellitus complication detail: diabetic polyneuropathy Diabetes mellitus type: type 2 History of stroke Z86.73
--- OUTSIDE RECORDS SUMMARY | 2025-07-09 15:45 | XMS_ITS | Encounter Summary ---
Author Organization [facility] Address [address] [place] [address] Care Team Providers Care Discharging Machine Operator Name Role Phone Stone Wiley MD Primary Care Provider [phone] Encounter Details Date Type Department Care Team (Late st Contact Info) Description 06/01/2025 Billing Patient Not Present Adult Medicine [address] [phone] Stone Wiley MD [address] [place] [address] Social History Tobacco Use Types Packs/Day Years Used Date Smoking Tobacco: Former Cigarettes 0.3 40.5 0 08/09/1972 - 01/26/2013 Smokeless Tobacco: Never Alcohol Use Standard Drinks/Week Comments Not Currently 0 (1 standard drink = 0.6 oz pur e alcohol) Comments No Sex and Gender Information Value Date Recorded Sex Assigned at Female 05/04/2025 12:35 PM EDT Legal Sex Female 10:52 PM EST Gender Identity Female 05/04/2025 12:35 PM EDT Sexual Orientation Not on file documented as of this encounter Plan of Treatment Upcoming Encounters Date Type Department Care Team (Late st Contact Info) Description 07/16/2025 1:45 PM EST Office Visit Orthopedic Surgery - [place] 250 175 [facility] [address] [place] [phone] Zion Vazquez, SAFIA 175 [facility] Arsenio [address] [place] [address] 07/18/2025 2:45 PM EST Office Visit Endocrinology - [address] [phone] Eileen Kwok PA [address] [place] [address] 11/29/2025 9:45 AM EDT Office Visit Adult Medicine South [address] [phone] Stone Wiley MD [address] [place] [address] documented as of this encounter Goals Goal Patient Goal Type Associated Problems Recent Progress Patient-Stated? Author Autogenerat ed Goal Care Plan Autogenerated Problem No [employer] documented as of this encounter Visit Diagnoses Not on filedocumented in this encounter Additional Health Concerns Active Problems Noted Date Diagnosed Date Autogenerated Problem 05/07/2025 documented as of this encounter Care Teams Discharging Machine Operator Relationship Specialty Start Date End Date Stone Wiley MD [address] [place] [address] PCP - General Internal Medicine 06/06/21 documented as of this encounter
--- OUTSIDE RECORDS SUMMARY | 2025-07-09 15:45 | XMS_ITS | Clinical Summary ---
Author Organization [facility] [address] [facility] Address [address] [place] [address] Phone Care Team Providers Care Administrative Support Clerk Name Role Phone Stone Wiley MD Primary Care Provider [phone] Allergies Active Allergy Reactions Criticality Noted Date [...] replace cap. 16 g 5 Active lisinopriL (PRINIVIL,ZESTR IL) 10 mg tablet Take 1 tablet (10 mg total) by mouth 1 (one) time each day. 90 tablet 1 5 Active OneTouch Ultra Test test strip Used to check blood sugar 3 times daily. 300 each 1 5 Active OneTouch UltraSoft Lancets Use to test blood sugar 3 times daily 300 each 1 5 Active donepeziL (ARICEPT) 5 mg tablet Take 1 tablet (5 mg total) by mouth at bedtime. 5 Active metFORMIN XR (GLUCOPHAGE-XR) 500 mg 24 hr tablet 2 tabs twice a day with meals 120 each 11 5 Active bisacodyL (DULCOLAX) 5 mg EC [...] gallon at 8PM. 4000 mL 5 Active Alcohol Prep Pads pads, medicated APPLY 1 PAD TOPICALLY 4 TIMES A DAY BEFORE MEAL/BED 5 Active insulin glargine (Lantus Solostar U-100 Insulin) 100 unit/mL (3 mL) injection pen 14 units sc in the morning 15 mL 11 5 Active dulaglutide (Trulicity) 1.5 mg/0.5 mL pen injector injection Inject 0.5 mL (1.5 mg total) under the skin every 7 (seven) days. 2 mL 5 5 Active Active Problems Problem Noted Date Diagnosed Date Urinary incontinence 01/10/2025 Osteoporosis 06/12/2021 Diabetes mellitus type 2 wit h neurological manifestations ([facility] V24, [facility] V28) 10/23/2017 Diabetic neuropathy ([facility] V24, [facility] V28) 0 10/23/2017 Vitamin D deficiency 10/23/2017 Essential hypertension 04/08/2015 Diverticulitis of colon without hemorrhage 07/25 Overview (08/04/2024): Incidental finding at colonoscopy 07/25/2013. Depression 04/21/2013 Hyperlipidemia 04/21/2013 Type 2 diabetes mellitus, co ntrolled, with renal complications ([facility] V24, [facility] V28) 04/21/2013 Encounters Date Type Department Care Team Description 06/06/2025 10:30 AM EDT Office Visit Adult Medicine [address] [phone] Hany Falk PA Essential hypertension (Primary Dx); Hyperlipidemia, unspecified hyperlipidemia type; Diabetes mellitus type 2 with neurological manifestations ([facility] V24, [facility] V28); Vitamin D deficiency 06/04/[address] [phone] Stone Wiley MD 06/01/2025 Billing Patient Not Present [address] [phone] Stone Wiley MD 05/16/2025 Results Follow-Up [address] [phone] Eileen Kwok PA 05/15/2025 2:45 PM EDT Office Visit [address] [phone] Eileen Kwok PA Diabetes mellitus type 2 with neurological manifestations ([facility] V24, [facility] V28) (Primary Dx); Essential hypertension; Hyperlipidemia, unspecified hyperlipidemia type 05/11/2025 10:23 AM EDT Anesthesia Event [facility] [address] [place] [phone] Weston Lyn DO 05/11/2025 9:58 AM EDT - 05/11/2025 11:59 PM EDT Hospital Encounter [facility] [address] [place] [phone] Muslu, MD Inocencia Herrera Julia, CRNA Saliga, Raheem David MD Hx of colonic polyps Discharge Disposition: Home or Self Care 04/16/2025 2:15 PM EDT Office Visit Orthopedic Surgery - [address] [phone] Zion Vazquez DPM Controlled type 2 diabetes with neuropathy ([facility] V24, [facility] V28) (Primary Dx); Pain in toes of both feet; Arthritis of both feet; Hammertoes of both feet; PAD (peripheral artery disease) ([facility] V24) from Last 3 Months Immunizations Immunization Administration Dates Next Due Influenza Quadravalent, MDCK , 0.5ml, with preservative (Flucelvax) 6mo and older 04/28/2017 Influenza trivalent, 0.5mL ( Fluzone High-dose) 65yo and older 05/16/2021 Influenza trivalent, with pr eservative (Fluzone; Afluria) 6mo and older 07/17/2016,07/16/2015,06/25/2014,04/21 PPD Test 04/08/2015 [employer] SARS-CoV-2 COVID-19, mRNA, LNP-S, preservative free 03/17/2021,02/19/2021 Pneumococcal polysaccharide 23 valent (Pneumovax 23) 2yo and older 04/21/2013 Td Tetanus diptheria, preser vative free (Tenivac) 7yo and older 02/15/2025 Tdap Tetanus diptheria acell ular pertussis (Boostrix; Adacel) 7yo and older 03/20/2013 Surgical History Surgery Date Site/Laterality Comments OTHER SURGICAL HISTORY PROCEDURE: HISTORICAL TOTAL HYSTERECTOMY W/O BSO; COMMENT: for fibroids, in [place] COLONOSCOPY W/ BIOPSIES 07/25/2013 PROCEDURE[place] COLONOS[place] W/BIOPSY SINGLE/MULTIPLE; COMMENT: Diverticulosis; 5 mm right colon polyp: Tubular adenoma KNEE ARTHROSCOPY W/ DEBRIDEMENT 01/2018 Right PROCEDURE: [place] ARTHRS KNEE DEBRIDEMENT/SHAVING ARTCLR CRTLG HYSTERECTOMY Medical [...] pain Alcohol abuse DX:Alcohol abuse Diabetic neuropathy ([facility] V24, [facility] V28) 10/23/2017 DX:Diabetic neuropathy (HCC) Diabetes mellitus type 2 wit h neurological manifestations ([facility] V24, [facility] V28) 10/23/2017 DX:Diabetes mellitus type 2 with [...] PM EDT Sexual Orientation Not on file Obstetrics History Para Term AB IAB SAB Ectopic Multiple Livin g Live Births 5 5 5 5 Date Outcome GA Total Labor Labor/2nd/3rd Weight Sex Type Anes PTL Emperatriz A1 A5 Name Clin Term Term Term Term Term Last Filed Vital Signs Vital Sign Reading Time Taken Comments Blood Pressure 108/66 06/06/2025 10:28 AM EDT Pulse 102 06/06/2025 10:28 AM EDT Temperature 36.2 C (97.1 F) 06/06/2025 10:28 AM EDT Respiratory Rate 16 01/10/2025 9:57 AM EDT Oxygen Saturation 93% 06/06/2025 10:28 AM EDT Inhaled Oxygen Concentration - - Weight 56.5 kg (124 lb 8 oz) 06/06/2025 10:28 AM EDT Height 165.1 cm (5' 5 ) 06/06/2025 10:28 AM EDT Body Mass Index 20.72 06/06/2025 10:28 AM EDT Plan of Treatment Upcoming Encounters Date Type Department Care Team (Late st Contact Info) Description 07/16/2025 1:45 PM EST Office Visit Orthopedic Surgery - [place] [address] [phone] Zion Vazquez, DPJack [address] [address] 07/18/2025 2:45 PM EST Office Visit Endocrinology [address] [phone] Eileen Kwok PA [address] [place] [address] 11/29/2025 9:45 AM EDT Office Visit Adult Medicine [address] [phone] Stone Wiley MD [address] [place] [address] Health Maintenance Due Date Last Done Comments Colorectal Cancer Screening: Colonoscopy 1953 Diabetes: Annual Foot Exam 1963 Diabetes: Annual Retina Eye Exam 1963 Hepatitis A Vaccines (1 of 2 - Risk 2-dose series) 1972 RSV Immunization Adult Patients (1 - Risk 50-74 years 1-dose series) 2003 Pneumococcal Vaccine: 50+ Years (2 of 2 - PCV) 04/21/2014 04/21/2013 Zoster Vaccines (2 of 2) 11/13/2021 09/18/2021 Falls Risk Assessment 07/18/2022 Medicare Annual Wellness Visit 07/18/2022 Social Influencers of Health Screening 07/18/2022 Diabetes: Annual Urine Albumin-Creatinine Ratio (uACR) 10/16/2022 10/16/2021 Depression Screening 08/09/2024 COVID-19 Vaccine (3 season) 2025 03/17/2021, 02/19/2021 Influenza Vaccine (#1) 2025 , 04/28/2017, 07/17/2016, Additional history exists Diabetes: Blood Sugar Control Test (HGBA1C) 11/13/2025 05/15/2025, 01/05/2025, 10/16/2021 Diabetes: Annual GFR (Glomerular Filtration [...] on patient's age to complete this topic Goals Goal Patient Goal Type Associated Problems Recent Progress Patient-Stated? Author Autogenerat ed Goal Care Plan Autogenerated Problem No Desi Church Procedures Procedure Name Priority Date/Time Associated Diagnosis Comments HEMOGLOBIN A1C Routine 05/15/2025 3:34 PM EDT Diabetes mellitus type 2 with neurological manifestations (CMS/HCC V24, CMS/HCC V28) THYROID STIMULATING HORMONE WITH REFLEX TO FREE T4 AND FREE T3 Routine 05/15/2025 3:34 PM EDT Diabetes mellitus type 2 with neurological manifestations (CMS/HCC V24, CMS/HCC V28) POC GLUCOSE Routine 05/15/2025 2:55 PM EDT Diabetes mellitus type 2 with neurological manifestations (CMS/HCC V24, CMS/HCC V28) MG MAMMO DIGITAL DIAGNOSTIC W OBIE RIGHT Routine 03/15/2025 3:38 PM EDT Abnormal mammogram BD BONE DENSITY DXA AXIAL SKELETON Routine 02/19/2025 9:29 AM EDT Osteoporosis, unspecified osteoporosis type, unspecified pathological fracture presence COMPREHENSIVE METABOLIC PANEL Routine 01/05/2025 9:46 AM EDT Diabetes mellitus type 2 with neurological manifestations (CMS/HCC V24, CMS/HCC V28) LIPID PANEL WITH REFLEX TO DIRECT LDL Routine 01/05/2025 9:46 AM EDT Diabetes mellitus type 2 with neurological manifestations (CMS/HCC V24, CMS/HCC V28) URINE ALBUMIN CREATININE RATIO Routine 10/16/2021 HEPATITIS C SCREENING Routine 12/28/2017 from Last 3 Months or Most Recently Relevant to Health Maintenance Results * Thyroid stimulating hormone with reflex to free t4 and free t3 (05/15/2025 3:34 PM EDT) TSH 1.55 0.40 - 4.00 mcIU/mL LAB CHEMISTRY METHOD 05/15/2025 6:58 PM EDT [facility] Blood Venous blood specimen / Unknown Venipuncture / Unknown 05/15/2025 3:34 PM EDT 05/15/2025 3:34 PM EDT Eileen PEREIRA LAB BLOOD ORDERABLES Final Result [facility] [address] [place] [address], [place] [phone] * (ABNORMAL) Hemoglobin A1c (05/15/2025 3:34 PM EDT) Hemoglobin A1C 7.9(H) <6.5 % LAB CHEMISTRY METHOD 05/15/2025 7:53 PM EDT [facility] Mean Bld Glu Estim. 180 mg/dL LAB CHEMISTRY METHOD 05/15/2025 7:53 PM EDT [facility] Blood Venous blood specimen / Unknown Venipuncture / Unknown 05/15/2025 3:34 PM EDT 05/15/2025 3:34 PM EDT Eileen PEREIRA LAB BLOOD ORDERABLES Final Result [facility] [address] [place] [address], [place] [phone] * POC glucose manually resulted (05/15/2025 2:55 PM EDT) Glucose POC 138 mg/dL Blood Capillary blood specimen / Unknown 05/15/2025 2:55 PM EDT us Eileen PEREIRA POINT OF CARE TEST ENTER/ED IT ORDERABLES Final Result * MG Mammo Digital Diagnostic [...] is recommended in 1 year. MAMMO LOCATION: [facility], [address] [place] [address], [id number], . -------- FINAL REPORT -------- Dictated By: Lavinia Foote Dictated Date: 03/15/2025 16:00 ET Assigned Physician: Lavinia Foote Reviewed and Electronically Signed By: Lavinia Foote Signed Date: 03/15/2025 16:04 ET Workstation ID: [id number] Transcribed By: Self Edit Transcribed Date: 03/15/2025 16:00 ET Narrative 03/15/2025 4:04 PM EDT EXAM: MG MAMMO DIGITAL DIAGNOSTIC W OBEI RIGHT, US BREAST LIMITED RIGHT HISTORY: Call [...] is recommended in 1 year. MAMMO LOCATION: [facility], [address] [place] [address], [id number], . -------- FINAL REPORT -------- Dictated By: Lavinia Foote Dictated Date: 03/15/2025 16:00 ET Assigned Physician: Lavinia Foote Reviewed and Electronically Signed By: Lavinia Foote Signed Date: 03/15/2025 16:04 ET Workstation ID: [id number] Transcribed By: Self Edit Transcribed Date: 03/15/2025 16:00 ET Hany PEREIRA IMG BI PROCEDURES Final Result * BD Bone Density DXA Axial Skeleton (02/19/2025 9:29 AM EDT) Anatomical Region Laterality Modality Wrist, Hip, L-spine Bone Densito metry 02/19/2025 1:17 PM EDT Impressions 02/19/2025 1:19 PM EDT Osteoporosis by WHO criteria. The [facility] Department of Internal Medicine recommends [...] alternative screening schedule based on jada Dickinson., [facility] August 27, 2011 for patients with osteopenia [...] Signed Date: 02/19/2025 13:19 ET Workstation ID: [id number] Transcribed By: Self Edit Transcribed Date: 02/19/2025 [...] elements. IMPRESSION: Osteoporosis by WHO criteria. The [facility] Department of Internal Medicine recommendsusing [...] alternative screening schedule based on jada Dickinson., [facility] for patients with osteopenia (based on [...] Signed Date: 02/19/2025 13:19 ET Workstation ID: [id number] Transcribed By: Self Edit Transcribed Date: 02/19/2025 13:17 ET us Hany PEREIRA IMG DXA PROCEDURES Ranjana l Result * Lipid panel with reflex to direct LDL (01/05/2025 9:46 AM EDT) Cholesterol 142 0 - 200 mg/dL LAB CHEMISTRY METHOD 01/05/2025 2:36 PM EDT [facility] Triglycerides 101 0 - 150 mg/dL LAB CHEMISTRY METHOD 01/05/2025 2:36 PM EDT [facility] HDL 54 >=40 mg/dL LAB CHEMISTRY METHOD 01/05/2025 2:36 PM EDT [facility] LDL Calculated 68 0 - 100 mg/dL LAB CHEMISTRY METHOD 01/05/2025 2:36 PM EDT [facility] VLDL Cholesterol Rusty 20.2 mg/dL LAB CHEMISTRY METHOD 01/05/2025 2:36 PM EDT [facility] Non HDL Chol. (LDL+VLDL) 88 <145 mg/dL LAB CHEMISTRY METHOD 01/05/2025 2:36 PM EDT [facility] Chol/HDL Ratio 2.6 0.0 - 4.4 LAB CHEMISTRY METHOD 01/05/2025 2:36 PM EDT [facility] Blood Venous blood specimen / Unknown Venipuncture / Unknown 01/05/2025 9:46 AM EDT 01/05/2025 9:46 AM EDT Hany PEREIRA LAB BLOOD ORDERABLES Fi nal Result [facility] [address] [place] [address], * (ABNORMAL) Comprehensive metabolic panel (01/05/2025 9:46 AM EDT) Pathologist [facility] Sodium 133 133 - 145 mmol/L LAB CHEMISTRY METHOD 01/05/2025 2:36 PM EDT [facility] Potassium 3.8 3.5 - 5.5 mmol/L LAB CHEMISTRY METHOD 01/05/2025 2:36 PM EDT [facility] Chloride 99 96 - 110 mmol/L LAB CHEMISTRY METHOD 01/05/2025 2:36 PM [facility] CO2 26 21 - 32 mmol/L LAB CHEMISTRY METHOD 01/05/2025 2:36 PM [facility] Anion Gap 8 3 - 11 LAB CHEMISTRY METHOD 01/05/2025 2:36 PM [facility] Glucose 172(H) 70 - 100 mg/dL LAB CHEMISTRY METHOD 01/05/2025 2:36 PM [facility] BUN 7 5 - 25 mg/dL LAB CHEMISTRY METHOD 01/05/2025 2:36 PM [facility] Creatinine 0.66 0.50 - 1.10 mg/dL LAB CHEMISTRY METHOD 01/05/2025 2:36 PM [facility] eGFR 94 >=60 mL/min/1. 73m2 LAB CHEMISTRY METHOD 01/05/2025 2:36 PM [facility] Comment:Calculation based on the Chronic Kidney Disease Epidemiology Collaboration (CKD-EPI) equation refit without adjustment for race. BUN/Creatinine Ratio 10.6 LAB CHEMISTRY METHOD 01/05/2025 2:36 PM [facility] Calcium 9.4 8.5 - 10.5 mg/dL LAB CHEMISTRY METHOD 01/05/2025 2:36 PM [facility] AST (SGOT) 13 10 - 42 unit/L LAB CHEMISTRY METHOD 01/05/2025 2:36 PM [facility] ALT (SGPT) 19 10 - 60 unit/L LAB CHEMISTRY METHOD 01/05/2025 2:36 PM [facility] Alkaline Phosphatase 73 42 - 121 unit/L LAB CHEMISTRY METHOD 01/05/2025 2:36 PM [facility] Total Protein 7.1 6.0 - 8.0 g/dL LAB CHEMISTRY METHOD 01/05/2025 2:36 PM [facility] Albumin 3.2 3.2 - 5.0 g/dL LAB CHEMISTRY METHOD 01/05/2025 2:36 PM EDT [facility] Total Bilirubin 1.1 0.0 - 1.4 mg/dL LAB CHEMISTRY METHOD 01/05/2025 2:36 PM EDT [facility] Blood Venous blood specimen / Unknown Venipuncture / Unknown 01/05/2025 9:46 AM EDT 01/05/2025 9:46 AM EDT Hany PEREIRA LAB BLOOD ORDERABLES Fi nal Result [facility] [address] [place] [address], * Urine Albumin Creatinine Ratio (10/16/2021) Urine Albumin Creatinine Ratio Abstracted Historical Provider HEALTH MAINTENANCE Final Result * Hepatitis C Screening (12/28/2017) Hepatitis C Screening Abstracted Historical Provider HEALTH MAINTENANCE Final Result from Last 3 Months or Most Recently Relevant to Health Maintenance Additional Health Concerns Active Problems Noted Date Diagnosed Date Autogenerated Problem 05/07/2025 Insurance [facility] MEDICARE Member Subscriber Plan / Payer (Ef fective 2024-Present) Name:Annalise Melendez Relation to Subscriber:Self Name:Annalise Melendez Payer ID:[id number] Group ID:[id number] Type:Not on file Address: [place] [address] [address] [phone] Care Teams Administrative Support Clerk Relationship Specialty Start Date End Date Stone Wiley MD [address] [place] [phone] PCP - General Internal Medicine 06/06/21
--- OUTSIDE RECORDS SUMMARY | 2025-07-09 15:45 | XMS_ITS | Encounter Summary ---
Author Organization [facility] Address [address] [place] [address] Care Team Providers Care Plan Checker Name Role Phone Stone Wiley MD Primary Care Provider [phone] Encounter Details Date Type Department Care Team (Late Contact Info) Description 05/16/2025 Results Follow-Up Endocrinology - [address] [phone] Eileen Kwok PA [address] [place] [address] Social History Tobacco Use Types Packs/Day Years [...] PM EST Office Visit Orthopedic Surgery - [place] [address] [phone] Zion Vazqeuz, SAFIA 175 [facility] [address] [place] [address] 07/18/2025 2:45 PM EST Office Visit Endocrinology - [address] [phone] Eileen Kwok PA [address] [place] [address] 11/29/2025 9:45 AM EDT Office Visit Adult Medicine [place] [address] [phone] Stone Wiley MD [address] [place] [address] documented as of this encounter Goals Goal Patient Goal Type Associated Problems Recent Progress Patient-Stated? Author Autogenerat ed Goal Care Plan Autogenerated Problem No Desi Church documented as of this encounter Visit Diagnoses Not on filedocumented in this encounter Additional Health Concerns Active Problems Noted Date Diagnosed Date Autogenerated Problem 05/07/2025 documented as of this encounter Care Teams Plan Checker Relationship Specialty Start Date End Date Stone Wiley MD [address] [place] [address] PCP - General Internal Medicine 06/06/21 documented as of this encounter
--- OUTSIDE RECORDS SUMMARY | 2025-07-09 15:45 | XMS_ITS | Encounter Summary ---
Author Organization [facility] Address [address] [place] [address] Care Team Providers Care Resume Specialist Name Role Phone Stone Wiley MD Primary Care Provider [phone] Reason for Visit * Reason Onset Date Comments faxed order 06/04/2025 Mana walkera order [id number] Encounter Details Date Type Department Care Team ([facility] Contact Info) Description 06/04/2025 Telephone Adult Medicine [facility] [address] [place] [address] Stone Wiley MD [address] [place] [address] Social History Tobacco Use Types Packs/Day Years [...] as of this encounter Progress Notes * Maribell Martin - 06/19/2025 9:01 AM EST Maynor HOANG requesting Order # [id number] to faxed back [phone] over due. * Briana oH - 06/04/2025 12:47 PM EDT Mana a order [id number] received please sign and fax to [phone] documented in this encounter Plan of Treatment Upcoming Encounters Date Type Department Care Team (Late st Contact Info) Description 07/16/2025 1:45 PM EST Office Visit Orthopedic Surgery [place] [address] [phone] Zion Vazquez, DPJack [address] [address] 07/18/2025 2:45 PM EST Office Visit [address] [phone] Eileen Kwok PA [facility] [place] [address] 11/29/2025 9:45 AM EDT Office Visit Adult Medicine [address] [phone] Stone Wiley MD [address] [place] [address] documented as of this encounter Goals Goal Patient Goal Type Associated Problems Recent Progress Patient-Stated? Author Autogenerat ed Goal Care Plan Autogenerated Problem No Church Desi documented as of this encounter Visit Diagnoses Not on filedocumented in this encounter Additional Health Concerns Active Problems Noted Date Diagnosed Date Autogenerated Problem 05/07/2025 documented as of this encounter Care Teams Resume Specialist Relationship Specialty Start Date End Date Stone Wiley MD [address] [place] [address] PCP - General Internal Medicine 06/06/21 documented as of this encounter
== END 2025-07-09 12:14 | disposition home or self-care (01) ==
LOC: HO.HSM 11:56
PROVIDERS: PCP Internal Medicine; Visit Provider Registered Nurse
DX: G31.84 Mild cognitive impairment of uncertain or unknown etiology (principal); E11.42 Type 2 diabetes mellitus with diabetic polyneuropathy; Z86.73 Personal history of transient ischemic attack (TIA), and cerebral infarction without residual deficits
CPT/HCPCS: 99214

== ENCOUNTER → 2025-07-09 11:55 | Outpatient (BNVA) | payer OTHER, SELFPAY | PROVIDERS: PCP Internal Medicine; Visit Provider Registered Nurse | DX: E11.42 Type 2 diabetes mellitus with diabetic polyneuropathy (principal); G31.84 Mild cognitive impairment of uncertain or unknown etiology; Z86.73 Personal history of transient ischemic attack (TIA), and cerebral infarction without residual deficits; Z79.899 Other long term (current) drug therapy; Z86.59 Personal history of other mental and behavioral disorders; Z87.891 Personal history of nicotine dependence | CPT/HCPCS: 99212 ==